=== PATIENT | female | born 1975 | race Caucasian/White ===

== ENCOUNTER 2019-05-24 16:46 | Outpatient (CLI) | payer MEDICAID, SELFPAY ==
--- NOTE | 2019-05-24 17:06 | XR_ITS ---
WS: [id number] XR lumbar spine 2-3V* [id number] REASON FOR EXAM: INJURY OF LOW BACK FINDINGS: The lateral projection the disc spaces are normal. The vertebral bodies are normal no compr ession deformity seen. In the AP projection the lamina, pedicle, spinous processes and transverse processes all appear to be within normal limits. XR/XR lumbar spine 2-3V* [id number] IMPRESSION: Normal lumbar spine series.
== END 2019-05-24 16:47 | disposition home or self-care (01) ==
LOC: RAD 16:51
PROVIDERS: Family Provider Family Medicine; PCP Family Medicine; Visit Provider Family Medicine
DX: S39.92XA Unspecified injury of lower back, initial encounter (principal); X58.XXXA Exposure to other specified factors, initial encounter
CPT/HCPCS: 72100

== ENCOUNTER 2019-05-31 10:04 | Emergency (ER) | payer MEDICAID, SELFPAY ==
[2019-05-31 10:13] VITALS: BP 117/76; PULSE 106; RESP 16; TEMP 36.9; O2SAT 98; BMI 21.7
--- NOTE | 2019-05-31 10:33 | CT_ITS ---
WS: [id number] CT scan of the abdomen and pelvis with IV contrast. Additional two-dimensional coronal and sagittal r econstruction was performed. 05/31/2019 Clinical Data: abd pain, fullness Comparison: CT abdomen and pelvis, 02/09/2019. DLP: 532.[address] scans at [facility] use at least one of these dose optimization techniques: automat ed exposure control; mA and/or kV adjustment per patient size (includes targeted exams where dose is matched to clinical indication); or iterative reconstruction. Findings: The lower lungs show no nodules, masses or effusions. The liver, gallbladder, spleen, adrenal glands and pancreas are normal. There is an incidental splenu le posterior to the spleen. The kidneys show equal bilateral contrast excretion with masses, hydronephrosis or renal calculi. The re is a small left renal cortical cyst unchanged.. The abdominal aorta is normal in size. No appendicitis or diverticulitis is seen. The stomach, small bowel and colon show only a large amoun t of fecal material in the colon. No abscess, adenopathy, ascites, mass, obstruction or free air is s een. No bowel dilatation is present. The bladder is unremarkable. The uterus is absent. No inguinal h ernia is seen. The bones of the lower thorax, lumbar spine, pelvis, and hips are normal. CT/CT abdomen pelvis w con* [id number] Impression: Negative for acute intra-abdominal or pelvic abnormalities.
--- NOTE | 2019-05-31 10:34 | W.ED.ABDPA2 ---
HPI - Abdominal Pain General: Chief Complaint: Abdominal Pain Stated Complaint: abd pain Time Seen by Provider: 05/31/19 10:33 Source: patient Mode of arrival: ambulatory Limitations: no limitations History of Present Illness: HPI narrative: Patient was referred to the ER today for complaints of left upper quadrant abdominal pain and diarrhea. Patient reports weight loss over the last 2 months. Patient reports occasional discomfort in the abdomen but it was more significant this morning. Patient has a history of chronic back pain which she takes medications for. 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 Patient denies any recent IV drug use. Review of Systems General: Reports: 10 or more systems reviewed and unremarkable except in HPI and below GI: Reports: abdominal pain PFSH ED PFSH: Social History Smoking and tobacco status: current every day smoker Physical Exam Const: COMMON NORMALS: no apparent distress and oriented x3 GENERAL APPEARANCE: cooperative HENMT: COMMON NORMALS: normocephalic, external ears normal, EAC's normal, TM's normal bilaterally and external nose normal HEAD & SCALP: normal to inspection and normocephalic FACE & SINUS: normal facial exam NOSE: external nose normal GENERAL EAR: hearing not grossly impaired EXTERNAL EAR: Yes external ears normal EXTERNAL AUDITORY CANAL: EAC's normal TYMPANIC MEMBRANE: TM's normal bilaterally MOUTH: oral and palatal mucosa normal THROAT: posterior oropharynx normal Eye: COMMON NORMALS: PERRL and EOMs intact bilaterally PUPIL: Yes PERRL Neck/C-Spine: COMMON NORMALS: full ROM and no lymphadenopathy Lymph: LYMPHATIC: no lymphedema noted Chest: COMMONS NORMALS: inspection of chest normal and palpation of chest normal Resp: COMMON NORMALS: normal respiratory effort and clear to auscultation bilaterally AUSCULTATION: clear to auscultation bilaterally Cardio: COMMON NORMALS: regular rate and regular rhythm RATE: regular rate RHYTHM: regular rhythm GI: COMMON NORMALS: normal to inspection, nondistended, normoactive bowel sounds PALPATION: Yes tender Details: LUQ : COMMON NORMALS: Yes no CVA tenderness BLADDER/KIDNEY EXAM: Yes no CVA tenderness Back/Pelvis: COMMON NORMALS: no CVA tenderness and thoracic and lumbar spine normal to inspection Extremity: COMMON NORMALS: normal to inspection GENERAL: No edema Neuro: COMMON NORMALS: oriented x3, moves all extremities and no focal motor deficits Psych: COMMON NORMALS: mental status grossly normal and cooperative Skin: COMMON NORMALS: no rashes or lesions noted GENERAL SKIN EXAM: no rashes or lesions noted Course Vital Signs: Vital signs: Vital Signs Temperature 98.5 F 05/31/19 10:13 Pulse Rate 106 H 05/31/19 10:13 Respiratory Rate 16 05/31/19 10:13 Blood Pressure 117/76 05/31/19 10:13 Pulse Oximetry 98 05/31/19 10:13 MDM - Abdominal Pain MDM Narrative: Medical decision making narrative: Patient comes in today with complaints of epigastric abdominal pain. Patient reports some diarrhea this morning and some left upper quadrant pain. Exam abdomen soft with minimal tenderness in left upper quadrant. Bowel sounds are present. No CVA tenderness. Vital signs are normal. Skin is warm and dry and color is pink. Differential diagnosis includes peptic ulcer disease, gastritis, gastroenteritis, cholecystitis, pancreatitis, urinary tract infection, renal calculi, carcinoma. Laboratory values noted sodium 135 and a creatinine 1.0. Liver enzymes are mildly elevated but not significant. Lipase was normal. Urinalysis was clear. CT scan of the abdomen showed no etiology or suggestion of acute illness. Reviewed exam with patient with recommendations for treatment and follow-up with primary care. Patient reported understanding. Patient was given Protonix 40 mg IV and 1 L of IV fluids with some improvement in discomfort. We will continue patient on the Protonix for treatment of gastritis. Lab Data: Labs: Lab Results 05/31/19 05/31/19 Range/Units 10:40 10:40 WBC 5.0 (4.0-10.0) 10^3/ uL RBC 4.35 (4.1-5.3) 10^6/u L Hgb 13.1 (11.5-15.3) g/dL Hct 40.9 (37.0-47.0) % MCV 94.0 (81-99) fL MCH 30.1 (28.0-34.0) pg MCHC 32.0 (30.0-36.0) g/dL RDW 13.7 (12.1-15.1) % Plt Count 242 (130-400) 10^3/c mm MPV 10.4 (7.4-10.4) fL Neut % (Auto) 71.1 % Lymph % (Auto) 21.1 % [facility] % (Auto) 5.0 % Eos % (Auto) 2.2 % Baso % (Auto) 0.6 % Neut # (Auto) 3.6 (1.8-7.7) 10^3/u L Lymph # (Auto) 1.1 (0.8-4.8) 10^3/u L [facility] # (Auto) 0.3 (0.2-0.9) 10^3/u L Eos # (Auto) 0.1 (0.0-0.8) 10^3/u L Baso # (Auto) 0.0 (0.0-0.1) 10^3/u L Nucleated RBC % (a uto) 0 % Nucleated RBCs # 0.0 /100WBC Sodium 135 L (136-145) mmol/L Potassium 3.8 (3.5-5.1) mmol/L Chloride 99 (98-107) mmol/L Carbon Dioxide 24 (22-29) mmol/L Anion Gap 15.8 (5-19) BUN 17 (6-20) mg/dL Creatinine 1.0 H (0.5-0.9) mg/dL GFR Calculation 60.0 L (90-130) mL/min Glucose 124 H (65-115) mg/dL Calcium 9.8 (8.5-10.5) mg/dL Total Bilirubin 0.5 (0.15-1.2) mg/dL AST 38 H (0-32) U/L ALT 59 H (0-33) U/L Alkaline Phosphata se 78 (35-105) IU/L Total Protein 7.6 (6.6-8.7) g/dL Albumin 3.9 (3.5-5.2) g/dL Globulin 3.7 (1.3-4.6) g/dL Lipase 17 (13-60) U/L Discharge Plan Discharge Patient Disposition: Home, Self-Care Clinical Impression: Gastritis Qualifiers: Gastritis type: unspecified gastritis Chronicity: unspecified Gastritis bleeding: without bleeding Qualified Code(s): K29.70 - Gastritis, unspecified, without bleeding Condition: Stable Prescriptions: New pantoprazole 40 mg tablet,delayed release (DR/EC) 40 mg PO DAILY Qty: 14 RF: 0 Discharge Orders: Discharge Order (Routine); Ordered 02/25/20 Ordered By: Francisco Parra Referrals: Debbie Odonnell DO [Primary Care Provider] - Discharge Diet: Usual diet Discharge Activity: Increase activity as tolerated Patient Instructions: Gastritis (ED) Activity Restrictions/Additional Instructions: Home and rest Activity as tolerated Drink plenty of fluids Light diet, avoid acidic, spicy foods Stop smoking Follow-up with primary care in one week Coding Level of Care Code 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
[2019-05-31 10:49] LABS: Basophils % 0.6 %; Eosinophils # 0.1 10^3/uL (0.0-0.8); Eosinophils % 2.2 %; Hematocrit 40.9 % (37.0-47.0); Hemoglobin 13.1 g/dL (11.5-15.3); Lymphocytes # 1.1 10^3/uL (0.8-4.8); Lymphocytes % 21.1 %; Mean Corpuscular Hemoglobin 30.1 pg (28.0-34.0); Mean Platelet Volume 10.4 fL (7.4-10.4); Monocytes # 0.3 10^3/uL (0.2-0.9); Neutrophils # 3.6 10^3/uL (1.8-7.7); Neutrophils % 71.1 %; Nucleated Red Blood Cells % 0 %; Platelet Count 242 10^3/cmm (130-400); Red Blood Count 4.35 10^6/uL (4.1-5.3); Red Cell Distribution Width 13.7 % (12.1-15.1)
[2019-05-31] MEDS: iohexol 300 mg/mL 100 mL Btl IV (10:55)
[2019-05-31 11:04] LABS: Alanine Aminotransferase 59 U/L (0-33); Albumin Level 3.9 g/dL (3.5-5.2); Alkaline Phosphatase 78 IU/L (35-105); Anion Gap 15.8 (5-19); Aspartate Amino Transferase 38 U/L (0-32); Blood Urea Nitrogen 17 mg/dL (6-20); Calcium 9.8 mg/dL (8.5-10.5); Carbon Dioxide 24 mmol/L (22-29); Chloride 99 mmol/L (98-107); Globulin 3.7 g/dL (1.3-4.6); Glucose 124 mg/dL (65-115); Lipase 17 U/L (13-60); Potassium 3.8 mmol/L (3.5-5.1); Sodium 135 mmol/L (136-145); Total Bilirubin 0.5 mg/dL (0.15-1.2); Total Protein 7.6 g/dL (6.6-8.7)
[2019-05-31] MEDS: sodium chloride 0.9% 1,000 ML 999 ML IV (11:08)
[2019-05-31] MEDS: pantoprazole 40 mg SDV IVP (11:08)
[2019-05-31 12:27] VITALS: BP 127/85; PULSE 89; RESP 18; O2SAT 95
== END 2019-05-31 12:28 | disposition home or self-care (01) ==
LOC: ER 12:18
PROVIDERS: Emergency Provider Nurse Practitioner Family; Family Provider Family Medicine; PCP Family Medicine
DX: K29.70 Gastritis, unspecified, without bleeding (principal); F17.210 Nicotine dependence, cigarettes, uncomplicated; G89.29 Other chronic pain; M54.9 Dorsalgia, unspecified
CPT/HCPCS: 36415; 74177; 80053; 83690; 85025; 96360; 96361; 96374; 96375; 99282; 99283; C9113; J7030; Q9967

== ENCOUNTER 2019-06-07 18:32 | Emergency (ER) | payer MEDICAID, SELFPAY ==
[2019-06-07 18:45] VITALS: BP 125/83; PULSE 89; RESP 16; TEMP 37.1; O2SAT 98; BMI 22.7
--- NOTE | 2019-06-07 18:49 | ECG_ITS ---
Measurements Intervals [place] Rate: 97 P: 76 PA: 136 QRS: 32 QRSD: 91 T: 44 QT: 343 QTc: 438 SINUS RHYTHM POSSIBLE LEFT ATRIAL ENLARGEMENT [-0.1mV P WAVE IN V1/V2] Compared to ECG 10/18/2018 18:38:50 Sinus tachycardia no longer present Electronically Signed On 06-08-2019 4:35:07 DENTAL TECHNICIAN INSTRUCTOR by Mira Law M.D. [email or web address]
--- NOTE | 2019-06-07 20:44 | W.ED.ANXIETY ---
HPI - Anxiety General: Chief Complaint: Anxiety Stated Complaint: anxiety Time Seen by Provider: 06/07/19 20:33 History of Present Illness: HPI narrative: Patient comes in today with complaints of anxiety. Patient has been without her medications due to recently returned to the area. Patient usually takes Klonopin and gabapentin for her anxiety and low back pain. Patient appears well. Patient appears anxious. EKG done in the waiting room noted no abnormalities. MD complaint: anxiety Review of Systems General: Reports: 10 or more systems reviewed and unremarkable except in HPI and below Psych: Reports: anxiety PFSH ED PFSH: Social History Smoking and tobacco status: current every day smoker Physical Exam Const: COMMON NORMALS: no apparent distress and oriented x3 GENERAL APPEARANCE: cooperative and well kempt HENMT: COMMON NORMALS: normocephalic, external ears normal, EAC's normal, TM's normal bilaterally and external nose normal HEAD & SCALP: normal to inspection and normocephalic FACE & SINUS: normal facial exam NOSE: external nose normal GENERAL EAR: hearing not grossly impaired EXTERNAL EAR: Yes external ears normal EXTERNAL AUDITORY CANAL: EAC's normal TYMPANIC MEMBRANE: TM's normal bilaterally MOUTH: oral and palatal mucosa normal THROAT: posterior oropharynx normal Eye: COMMON NORMALS: PERRL and EOMs intact bilaterally PUPIL: Yes PERRL Neck/C-Spine: COMMON NORMALS: full ROM and no lymphadenopathy Lymph: LYMPHATIC: no lymphedema noted Chest: COMMONS NORMALS: inspection of chest normal and palpation of chest normal Resp: COMMON NORMALS: normal respiratory effort and clear to auscultation bilaterally AUSCULTATION: clear to auscultation bilaterally Cardio: COMMON NORMALS: regular rate and regular rhythm RATE: regular rate RHYTHM: regular rhythm GI: COMMON NORMALS: normal to inspection, nondistended, normoactive bowel sounds and non-tender : COMMON NORMALS: Yes no CVA tenderness BLADDER/KIDNEY EXAM: Yes no CVA tenderness Back/Pelvis: COMMON NORMALS: no CVA tenderness and thoracic and lumbar spine normal to inspection Extremity: COMMON NORMALS: normal to inspection GENERAL: No edema Neuro: COMMON NORMALS: oriented x3, moves all extremities and no focal motor deficits Psych: COMMON NORMALS: mental status grossly normal and cooperative APPEARANCE: Yes well kempt MOOD & AFFECT: Yes anxious Skin: COMMON NORMALS: no rashes or lesions noted GENERAL SKIN EXAM: no rashes or lesions noted Course Vital Signs: Vital signs: Vital Signs Temperature 98.8 F 06/07/19 18:45 Pulse Rate 89 06/07/19 18:45 Respiratory Rate 16 06/07/19 18:45 Blood Pressure 125/83 06/07/19 18:45 Pulse Oximetry 98 06/07/19 18:45 MDM - Anxiety MDM Narrative: Medical decision making narrative: Patient comes in today with complaints of anxiety. Patient has been without her Klonopin and gabapentin for over 2 weeks now due to a recent move to the area. Patient appears well. Exam notes heart rates regular. Vital signs are normal. Skin is warm and dry. Differential diagnosis includes depression, anxiety, malingering, drug-seeking behavior. Reviewed exam with patient recommended treatment with follow-up with primary care. Patient will be given lorazepam 0.5 mg to use twice a day as needed for breakthrough anxiety. Discussed the importance of keeping appointment with primary. Patient reports understanding agreed to plan. Discharge Plan Discharge Patient Disposition: Home, Self-Care Clinical Impression: Acute anxiety Condition: Stable Prescriptions: New lorazepam 0.5 mg tablet 0.5 mg PO BID PRN (Reason: anxiety) Qty: 14 RF: 0 No Action pantoprazole 40 mg tablet,delayed release (DR/EC) 40 mg PO DAILY Qty: 14 RF: 0 Discharge Orders: Discharge Order (Routine); Ordered 06/07/19 Ordered By: Francisco Parra Referrals: Debbie Odonnell DO [Primary Care Provider] - Discharge Diet: Usual diet Discharge Activity: Increase activity as tolerated Patient Instructions: Anxiety (ED) Activity Restrictions/Additional Instructions: Home and rest Activity as tolerated Healthy diet and exercise Follow-up with primary care at scheduled appointment 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
[2019-06-07] MEDS: LORazepam 0.5 mg Tablet PO (20:59)
[2019-06-07 21:01] VITALS: O2SAT 96
[2019-06-07 21:02] VITALS: BP 124/95; PULSE 98; RESP 17; O2SAT 97
== END 2019-06-07 21:02 | disposition home or self-care (01) ==
PROVIDERS: Emergency Provider Nurse Practitioner Family; Family Provider Family Medicine; PCP Family Medicine
DX: F41.9 Anxiety disorder, unspecified (principal); F17.200 Nicotine dependence, unspecified, uncomplicated
CPT/HCPCS: 93005; 99281; 99283

== ENCOUNTER 2019-06-10 22:01 | Emergency (ER) | payer MEDICAID, SELFPAY ==
[2019-06-10 22:02] VITALS: BP 140/100; PULSE 98; RESP 16; TEMP 36.7; O2SAT 98; BMI 22.8
--- NOTE | 2019-06-10 22:04 | ED_ITS ---
Entered by Jennifer Davies, acting as scribe for Geovanny Cordero DO HPI - Back Pain/Injury General: Chief Complaint: Back Pain/Injury Stated Complaint: back pain Time Seen by Provider: 06/10/19 22:04 Source: patient, EMS and RN notes reviewed Mode of arrival: EMS Limitations: no limitations PFSH ED PFSH: Social History Smoking and tobacco status: current every day smoker Discharge Plan Discharge Prescriptions: No Action lorazepam 0.5 mg tablet 0.5 mg PO BID PRN (Reason: anxiety) Qty: 14 RF: 0 Tylenol 325 mg Tablet 325 mg PO QID PRN (Reason: Pain) RF: 0 aspirin 325 mg Tablet 325 mg PO PRN PRN (Reason: Pain) RF: 0 clonazepam 0.5 mg tablet 1 mg PO TID PRN (Reason: Anxiety) RF: 0 tramadol 50 mg Tablet 50 mg PO Q6H PRN (Reason: Pain) RF: 0 gabapentin 800 mg Tablet 800 mg PO TID RF: 0 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
[2019-06-10 22:06] VITALS: BP 140/100; PULSE 116; RESP 16; O2SAT 100
--- NOTE | 2019-06-10 22:14 | ED_ITS ---
HPI - Back Pain/Injury General: Chief Complaint: Back Pain/Injury Stated Complaint: back pain Time Seen by Provider: 06/10/19 22:04 History of Present Illness: HPI Narrative: Archie is a 43-year-old female comes in complaining of low back pain that radiates down her left leg. It is a tingling type discomfort that goes down her leg. It is made worse by walking. She denies any trauma, fever, loss of bowel or bladder control, numbness in her groin, leg weakness or any other complaint. She states she has had pain like this before and it takes strong medications to help her pain go away. Associated symptoms: Deny abdominal pain, chills, difficulty walking, dysuria, fatigue, fever(s), hematuria, nausea, syncope, urinary urgency or vomiting Review of Systems General: Reports: other (negative unless marked) Const: Denies: fever, chills, body aches, fatigue, malaise or diaphoresis Eyes: Denies: change in vision or blurry vision ENMT: Denies: throat pain, painful swallowing, hoarseness, ear pain, ear discharge, Change in hearing or nasal discharge Card: Denies: chest pain, palpitations, irregular heart rhythm, syncope, pre- syncope, shortness of breath on exertion or shortness of breath when lying down Resp: Denies: shortness of breath, productive cough, non-productive cough, wheezing, coughing up blood or chest congestion GI: Denies: abdominal pain, nausea, vomiting, vomiting blood, coffee grounds in vomit, diarrhea, constipation, cramping, blood in stool or black tarry stool : Denies: flank pain, painful urination, urinary frequency, urinary urgency, decreased urine ouput, urinary incontinence or blood in urine Musc: Reports: back pain; Denies: neck pain, extremity pain, extremity swelling, joint pain, joint swelling, joint warmth or joint stiffness Skin/Breast: Denies: rash, skin tenderness or yellow skin Neuro: Denies: headache, numbness in extremities, weakness in extremities, changes in sensation, lack of coordination, difficulty walking, dizziness, vertigo or confusion Endo: Denies: excessive thirst, tired all the time, cold intolerance, excessive sweating, flushing or hot flashes Arben/Lymph: Denies: easy bruising, easy bleeding, petechiae or enlarged lymph nodes All/Imm: Denies: hives, throat swelling, tongue swelling, facial swelling or acute wheezing PFSH ED PFSH: Social History Smoking and tobacco status: current every day smoker Physical Exam Const: COMMON NORMALS: no apparent distress, oriented x3, no limitations, healthy appearing and well nourished EXAM LIMITATIONS: no altered mental status GENERAL APPEARANCE: cooperative, well kempt and well developed ORIENTATION/CONSCIOUSNESS: Yes awake HENMT: COMMON NORMALS: normocephalic, head/scalp atraumatic, hearing grossly normal bilaterally, external ears normal, EAC's normal, external nose normal and moist oral mucous membranes HEAD & SCALP: normal to inspection, normocephalic and atraumatic FACE & SINUS: normal facial exam and face symmetric NOSE: external nose normal and nares normal EXTERNAL EAR: Yes external ears normal EXTERNAL AUDITORY CANAL: EAC's normal MOUTH: oral and palatal mucosa normal and tongue normal Eye: COMMON NORMALS: PERRL, EOMs intact bilaterally, conjunctivae normal and no scleral icterus GENERAL EYE: normal appearance of both eyes and normal lig ht reflex CONJUNCTIVA: Yes conjunctivae normal SCLERA: sclerae normal CORNEA: Yes corneas normal PUPIL: Yes PERRL DIRECT OPHTHALMOSCOPY: Yes normal light reflex Neck/C-Spine: COMMON NORMALS: full ROM, no lymphadenopathy, supple, no meningeal signs and no JVD GENERAL: Yes normal visual inspection and Yes trachea midline CERVICAL SPINE: Yes cervical ROM normal Chest: COMMONS NORMALS: inspection of chest normal and palpation of chest normal Resp: COMMON NORMALS: normal respiratory effort, no retractions, no use of accessory muscles and clear to auscultation bilaterally EFFORT & INSPECTION: Yes able to speak in complete sentences AUSCULTATION: clear to auscultation bilaterally Cardio: COMMON NORMALS: no JVD, regular rate, regular rhythm, S1 normal heart sound, S2 normal heart sound, no gallops, no clicks, no murmurs and no rub JUGULAR VENOUS DISTENTION: no JVD RATE: regular rate RHYTHM: regular rhythm HEART SOUNDS: S1 normal and S2 normal GI: COMMON NORMALS: soft to palpation, non-tender, no hepatosplenomegaly and no masses INSPECTION: Yes normal to inspection PALPATION: Yes soft and Yes no hepatosplenomegaly : COMMON NORMALS: Yes no CVA tenderness BLADDER/KIDNEY EXAM: Yes no CVA tenderness Back/Pelvis: COMMON NORMALS: no CVA tenderness, thoracic and lumbar spine normal to inspection, no thoracic nor lumbar tenderness and thoraco-lumbar ROM normal Extremity: COMMON NORMALS: normal to inspection, full ROM, normal capillary refill, no joint enlargement, no clubbing, cyanosis or edema and no calf tenderness OTHER: Negative straight raise lasing and contralateral straight leg raising test. Neuro: COMMON NORMALS: oriented x3, CN's II-XII intact bilaterally, moves all extremities, no focal motor deficits and no sensory deficits noted MENINGEAL SIGNS: Yes no meningeal signs GAIT: Yes normal gait MOTOR EXAM: strength 5/5 throughout and other DEEP TENDON REFLEXES: Rt Patellar (L4): 2+, Lt Patellar (L4): 2+, Rt Ankle (S1): 2+ and Lt Ankle (S1): 2+ Psych: COMMON NORMALS: mental status grossly normal, thought process normal, cooperative, affect normal, speech normal and activity/motor behavior normal APPEARANCE: Yes well kempt SPEECH: Yes normal speech THOUGHT PROCESS: normal thought process Skin: COMMON NORMALS: no rashes or lesions noted, skin turgor normal, no jaundice, no petechiae and no mottling GENERAL SKIN EXAM: no rashes or lesions noted and turgor normal Course Vital Signs: Vital signs: Vital Signs Temperature 98.0 F 06/10/19 22:02 Pulse Rate 116 H 06/10/19 22:06 Respiratory Rate 16 06/10/19 22:06 Blood Pressure 140/100 06/10/19 22:06 Pulse Oximetry 100 06/10/19 22:06 MDM - Back Pain/Injury MDM Narrative: Medical decision making narrative: Archie has signs and symptoms and exam consistent with sciatica. There is no evidence of cauda equina syndrome or CRAFTI as a cause for her symptoms. I will treat her symptomatically. I do not believe x-rays or imaging is necessary as the patient's had no trauma and this is a flareup of her normal pain. She has no abdominal pain, dysuria or flank pain to suggest a pyelonephritis. The patient agrees to return should her symptoms change or worsen but she feels confident this is sciatic as she has had this before. Discharge Plan Discharge Patient Disposition: Home, Self-Care Clinical Impression: Sciatica Qualifiers: Laterality: left Qualified Code(s): M54.32 - Sciatica, left side Condition: Stable Prescriptions: New cyclobenzaprine 10 mg tablet 10 mg PO TID PRN (Reason: muscle spasm) Qty: 30 RF: 0 ibuprofen 800 mg tablet 800 mg PO TID PRN (Reason: pain) Qty: 30 RF: 0 No Action lorazepam 0.5 mg tablet 0.5 mg PO BID PRN (Reason: anxiety) Qty: 14 RF: 0 Tylenol 325 mg Tablet 325 mg PO QID PRN (Reason: Pain) RF: 0 aspirin 325 mg Tablet 325 mg PO PRN PRN (Reason: Pain) RF: 0 clonazepam 0.5 mg tablet 1 mg PO TID PRN (Reason: Anxiety) RF: 0 tramadol 50 mg Tablet 50 mg PO Q6H PRN (Reason: Pain) RF: 0 gabapentin 800 mg Tablet 800 mg PO TID RF: 0 Discharge Orders: Discharge Order (Routine); Ordered 06/10/19 Ordered By: Jennifer Marmolejo Referrals: Debbie Odonnell DO [Primary Care Provider] - 1-3 days Discharge Activity: Increase activity as tolerated Patient Instructions: Sciatica (ED) Activity Restrictions/Additional Instructions: Please return to the ER immediately for any of the signs or symptoms listed on your discharge instruction sheets, worsening/changing of your symptoms, you are not getting better as quickly as expected, or for ANY other cause or concerns. Return to the ER for any leg numbness, leg weakness, numbness or tingling in your groin, loss of bowel or bladder control, fever, abdominal pain, burning or pain when you urinate or for any other cause for concern. Coding Level of Care Code ED Neurophysiologist for Go Fwd Exam Comprehensive
--- NOTE | 2019-06-10 22:14 | PC.NURSE ---
Received patient to Er with complain of left lower back pain running down her left leg making it tingle.
[2019-06-10] MEDS: cyclobenzaprine 10 mg Tablet PO (22:22)
[2019-06-10] MEDS: acetaminophen 500 mg Tablet 1000 MG PO (22:22)
[2019-06-10] MEDS: ketorolac 60 mg/2 mL INJ IM (22:23)
[2019-06-10 22:53] VITALS: BP 129/107; PULSE 104; RESP 18; TEMP 36.6; O2SAT 98
== END 2019-06-10 22:53 | disposition home or self-care (01) ==
LOC: ER 22:38
PROVIDERS: Emergency Provider Emergency Medicine; Family Provider Family Medicine; PCP Family Medicine
DX: M54.42 Lumbago with sciatica, left side (principal); F17.200 Nicotine dependence, unspecified, uncomplicated
CPT/HCPCS: 12345; 96372; 99281; 99283; J1885

== ENCOUNTER 2019-09-17 01:19 | Emergency (ER) | payer MEDICAID, SELFPAY ==
[2019-09-17 01:20] VITALS: BP 165/109; PULSE 123; RESP 18; TEMP 36.8; O2SAT 96; BMI 20.3
[2019-09-17 01:55] LABS: Basophils % 0.5 %; Eosinophils # 0.1 10^3/uL (0.0-0.8); Eosinophils % 0.7 %; Hematocrit 42.9 % (37.0-47.0); Hemoglobin 14.1 g/dL (11.5-15.3); Lymphocytes # 1.3 10^3/uL (0.8-4.8); Lymphocytes % 17.1 %; Mean Corpuscular HGB Conc 32.9 g/dL (30.0-36.0); Mean Corpuscular Hemoglobin 32.5 pg (28.0-34.0); Mean Corpuscular Volume 98.8 fL (81-99); Mean Platelet Volume 9.6 fL (7.4-10.4); Monocytes # 0.6 10^3/uL (0.2-0.9); Monocytes % 7.5 %; Neutrophils # 5.6 10^3/uL (1.8-7.7); Neutrophils % 74.1 %; Nucleated Red Blood Cells % 0 %; Platelet Count 212 10^3/cmm (130-400); Red Blood Count 4.34 10^6/uL (4.1-5.3); Red Cell Distribution Width 13.6 % (12.1-15.1); White Blood Count 7.5 10^3/uL (4.0-10.0)
[2019-09-17 02:11] LABS: Alanine Aminotransferase 126 U/L (0-33); Albumin Level 4.3 g/dL (3.5-5.2); Alcohol Level 161 mg/dL (0-10); Alkaline Phosphatase 88 IU/L (35-105); Anion Gap 18.8 (5-19); Aspartate Amino Transferase 78 U/L (0-32); Blood Urea Nitrogen 19 mg/dL (6-20); Calcium 9.3 mg/dL (8.5-10.5); Carbon Dioxide 20 mmol/L (22-29); Chloride 109 mmol/L (98-107); Globulin 3.1 g/dL (1.3-4.6); Glomerular Filtration Rate 53.5 mL/min (90-130); Glucose 101 mg/dL (65-115); Osmolality Calculated 295 mOsm/kg (285-295); Potassium 3.8 mmol/L (3.5-5.1); Sodium 144 mmol/L (136-145); Total Bilirubin 0.3 mg/dL (0.15-1.2); Total Protein 7.4 g/dL (6.6-8.7)
[2019-09-17 02:20] LABS: Acetaminophen < 5.0 ug/mL (10-30); Salicylate < 0.3 mg/dL (3-10)
[2019-09-17 02:36] LABS: Add Urine Microscopic? NO
[2019-09-17 02:37] LABS: Bilirubin Urine Neg (NEGATIVE); Blood Urine Neg (Negative); Glucose Urine UA Norm (Normal); Ketones Urine Negative (Negative); Leukocyte Esterase Urine Negative (Negative); Nitrate Urine Negative (Negative); Protein Urine Neg (Negative); Urine Appearance Clear (CLEAR); Urine Color Yellow (Yellow); Urobilinogen Urine Norm (Negative); pH Urine 5 (5-7)
[2019-09-17 02:47] LABS: Amphetamines Screen Urine Negative (Negative); Barbiturates Screen Urine Negative (Negative); Benzodiazepines Screen Urine Negative (Negative); Cocaine Screen Urine Negative (Negative); Opiate Screen Urine Negative (Negative); PCP Screen Urine Negative (Negative); THC Screen Urine Negative (Negative)
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
== END 2019-09-17 03:03 | disposition left against medical advice (07) ==
LOC: ER 01:55
PROVIDERS: Emergency Provider Emergency Medicine; PCP Family Medicine
DX: R45.851 Suicidal ideations (principal); Z53.21 Procedure and treatment not carried out due to patient leaving prior to being seen by health care provider; F17.210 Nicotine dependence, cigarettes, uncomplicated
CPT/HCPCS: 12345; 80053; 80306; 80307; 81003; 85025; 99284

== ENCOUNTER 2019-09-28 06:43 | Day surgery (SDC) | payer MEDICAID, SELFPAY ==
[2019-09-26 13:47] VITALS: BMI 21.1
[2019-09-28 07:10] VITALS: BP 100/70; PULSE 83; RESP 18; O2SAT 95
--- NOTE | 2019-09-28 07:27 | P.ANESASSM_ITS ---
Pre-Anesthetic Assessment Pre-Anesthetic Assessment: Height/Weight: Height 1.7 m Weight 61.235 kg Pulse Resp BP Pulse Ox 83 18 100/70 95 09/28/19 07:10 09/28/19 07:10 09/28/19 07:10 09/28/19 07:10 Preop Diagnosis: Nonintentional weight loss Proposed Procedure: Operation Date: 09/28/19 08:15 Proposed Procedures p EGD/COLON 00901 43995 R10.9 K59.09(Not Applicable) - Harish Franco MD s Colonoscopy(Not Applicable) - Harish Franco MD Familial anesthetic complications: nONE Was Beta Alen taken within 24 hour s: N/A Last intake: Intake NPO > 8 hrs Last Liquid Date 09/27/19 Last Liquid Time 20:00 Social: Social History: Tobacco and No alcohol Exam: Pre-Anes Outpt Exam: alert, oriented x 3, clear to auscultation bilaterally and regular rate & rhythm Airway: Cervical ROM: WNL MP: 3 Dentition: Full Pulmonary: Pulmonary: Asthma and COPD CV/HEM: CV/HEM: None reported : : None reported Hepatic: Hepatic: None reported GI: GI: None reported Metabolic: Metabolic: None reported Musc/skel: Musc/skel: Lower Back Pain Neuropsych: Neuropsych: None reported Anesthetic Plan: ASA status: 2 Anesthesia: MAC Risk of > 500 ml blood loss (7ml/kg in children): No PFSH Anesthesia PFSH: Medical History Abdominal pain Chronic constipation Unintentional weight loss Vomiting blood Surgical History History of hysterectomy Family History Denies family history of Anesthesia complication Bleeding disorder Social History Smoking and tobacco status: current every day smoker Second hand smoke exposure: No Alcohol intake: never Adopted: No Caregiver/support person: Yes Lives independently: Yes Household members: spouse Data Anesthesia Cardiac Studies: No Data to Display
--- NOTE | 2019-09-28 08:59 | W.PM.OPSUD ---
Surgery/Procedure H&P Update DATE OF PROCEDURE: September 28, 2019 DATE H&P PERFORMED: 09/15/19 H&P UPDATE INFORMATION: I have reviewed H&P completed within last 30 days, I have examined patient prior to procedure and No changes to prior documentation PREOP DIAGNOSIS: Nonintentional weight loss PRIMARY INDICATION FOR PROCEDURE: The same PLANNED PROCEDURE: Operation Date: 09/28/19 08:15 Proposed Procedures p EGD/COLON 67266 26015 R10.9 K59.09(Not Applicable) - Harish Franco MD s Colonoscopy(Not Applicable) - Harish Franco MD
[2019-09-28 09:21] VITALS: BP 90/60; PULSE 73; RESP 16; TEMP 36.2; O2SAT 99
[2019-09-28 09:35] VITALS: BP 107/85; PULSE 96; RESP 18; O2SAT 98
--- NOTE | 2019-09-28 09:48 | ANE.PACU2 ---
Inpatient post-anesthesia follow up: Airway intact: Yes Vital signs: Temperature 97.2 F Pulse Rate 96 Respiratory Rate 18 Blood Pressure 107/85 Pulse Oximetry 98 Oxygen Delivery Me thod Room Air Oxygen Flow Rate Fraction of Inspir ed Oxygen Hydration adequate: Yes Nausea and vomiting: No Mental status: Baseline
[2019-09-29 13:34] LABS: H. Pylori / CLO Test Negative
== END 2019-09-28 09:44 | disposition home or self-care (01) ==
PROVIDERS: PCP Family Medicine; Visit Provider Surgery
PROC: 0DJ08ZZ Inspection of Upper Intestinal Tract, Via Natural or Artificial Opening Endoscopic (ICD-10-PCS; CPT 43235; principal; 2019-09-28 08:15)
PROC: 0DJD8ZZ Inspection of Lower Intestinal Tract, Via Natural or Artificial Opening Endoscopic (ICD-10-PCS; CPT 45378; 2019-09-28 08:15)
DX: R63.4 Abnormal weight loss (principal); Z68.21 Body mass index [BMI] 21.0-21.9, adult; K59.00 Constipation, unspecified; K21.9 Gastro-esophageal reflux disease without esophagitis; K29.70 Gastritis, unspecified, without bleeding; J44.9 Chronic obstructive pulmonary disease, unspecified; F17.210 Nicotine dependence, cigarettes, uncomplicated; Z79.82 Long term (current) use of aspirin
CPT/HCPCS: 12345; 43239; 45378; 87077; J2704

== ENCOUNTER → 2020-01-12 13:44 | Outpatient (BNVA) | payer MEDICAID, SELFPAY | PROVIDERS: Visit Provider Nurse Practitioner Psychiatric/Mental Health | DX: F41.0 Panic disorder [episodic paroxysmal anxiety] (principal); F19.11 Other psychoactive substance abuse, in remission | CPT/HCPCS: 99214 ==

== ENCOUNTER → 2020-02-09 07:43 | Outpatient (BNVA) | payer MEDICAID, SELFPAY | PROVIDERS: Visit Provider Nurse Practitioner Psychiatric/Mental Health | DX: F41.0 Panic disorder [episodic paroxysmal anxiety] (principal); F19.11 Other psychoactive substance abuse, in remission | CPT/HCPCS: 99212 ==

== ENCOUNTER → 2020-02-10 08:52 | Outpatient (BNVA) | payer MEDICAID, SELFPAY | PROVIDERS: Visit Provider Nurse Practitioner Psychiatric/Mental Health | DX: Z79.899 Other long term (current) drug therapy (principal) | CPT/HCPCS: 80053; 80061; 80306; 83036 ==

== ENCOUNTER 2020-04-07 04:47 | Emergency (ER) | payer MEDICAID, SELFPAY ==
[2020-04-07] VITALS (7 sets, daily range): BP systolic 94–144; BP diastolic 58–107; PULSE 75–117; RESP 16–22; TEMP 36.8; O2SAT 97–99; BMI 21.9
--- NOTE | 2020-04-07 05:28 | ECG_ITS ---
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 Measurements Intervals [place] Rate: 115 P: 73 NJ: 141 QRS: 39 QRSD: 93 T: 65 QT: 330 QTc: 457 Interpretive Statements SINUS TACHYCARDIA Compared to ECG 06/07/2019 18:52:21 Sinus rhythm no longer present Electronically Signed On 04-07-2020 17:51:51 ELECTRIC MOTOR TESTER by Matthias Georges M.D. [id number]
--- NOTE | 2020-04-07 05:28 | CTR_ITS ---
PROCEDURE INFORMATION: Exam: CT Head Without Contrast Exam date and time: 04/07/2020 6:19 AM Age: 44 years old Clinical indication: Altered mental status/memory loss; Patient HX: AMS. Drug overdose. TECHNIQUE: Imaging protocol: Computed tomography of the head without contrast. Radiation optimization: All CT scans at this facility use at least one of these dose optimization techniques: automated exposure control; mA and/or kV adjustment per patient size (includes targeted exams where dose is matched to clinical indication); or iterative reconstruction. COMPARISON: No relevant prior studies available. RADIATION DOSE METRICS: Total DLP (mGy-cm): 958.73 FINDINGS: Brain: Mild symmetric prominence of the cortical sulci relative to the stated patient age. No acute cortical infarct, mass effect, or intracranial hemorrhage. Cerebral ventricles: Normal configuration of the ventricles. Bones/joints: No acute calvarial pathology . Paranasal sinuses: No sinus fluid. Mastoid air cells: No mastoid effusion. Soft tissues: Unremarkable soft tissues. CT/CT head wo con* [id number] IMPRESSION: No acute intracranial pathology. Radiation Dose CTDIVOL = (mGy): DLP = 958.73 (mGy-cm)
[2020-04-07] MEDS: haloperidol inj 5 mg/mL INJ 1 mL 3 MG IVP (05:32)
[2020-04-07] MEDS: sodium chloride 0.9% 500 ML 999 ML IV (05:35)
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
[2020-04-07 05:40] LABS: Basophils % 0.4 %; Eosinophils # 0.1 10^3/uL (0.0-0.8); Hematocrit 42.2 % (37.0-47.0); Hemoglobin 13.7 g/dL (11.5-15.3); Lymphocytes # 2.1 10^3/uL (0.8-4.8); Lymphocytes % 29.1 %; Mean Corpuscular HGB Conc 32.5 g/dL (30.0-36.0); Mean Corpuscular Hemoglobin 32.3 pg (28.0-34.0); Mean Corpuscular Volume 99.5 fL (81-99); Mean Platelet Volume 9.9 fL (7.4-10.4); Monocytes # 0.7 10^3/uL (0.2-0.9); Monocytes % 8.9 %; Neutrophils # 4.42 10^3/uL (1.8-7.7); Neutrophils % 60.5 %; Nucleated Red Blood Cells % 0 %; Platelet Count 263 10^3/cmm (130-400); Red Blood Count 4.24 10^6/uL (4.1-5.3); Red Cell Distribution Width 12.6 % (12.1-15.1); White Blood Count 7.3 10^3/uL (4.0-10.0)
--- NOTE | 2020-04-07 06:19 | PC.NURSE ---
patient to CT
[2020-04-07 06:50] LABS: Alanine Aminotransferase 133 U/L (0-33); Albumin Level 4.2 g/dL (3.5-5.2); Alkaline Phosphatase 76 IU/L (35-105); Aspartate Amino Transferase 108 U/L (0-32); Blood Urea Nitrogen 18 mg/dL (6-20); Calcium 9.5 mg/dL (8.5-10.5); Carbon Dioxide 24 mmol/L (22-29); Chloride 102 mmol/L (98-107); Globulin 3.4 g/dL (1.3-4.6); Glomerular Filtration Rate 53.5 mL/min (90-130); Glucose 137 mg/dL (65-115); Osmolality Calculated 298 mOsm/kg (285-295); Sodium 142 mmol/L (136-145); Total Bilirubin 0.6 mg/dL (0.15-1.2); Total Protein 7.6 g/dL (6.6-8.7)
[2020-04-07 06:53] LABS: Acetaminophen < 5.0 ug/mL (10-30); Alcohol Level < 10 mg/dL (0-10); Salicylate < 0.3 mg/dL (3-10)
== END 2020-04-07 08:06 | disposition home or self-care (01) ==
PROVIDERS: Emergency Medicine; Emergency Provider Family Medicine
DX: T88.7XXA Unspecified adverse effect of drug or medicament, initial encounter (principal); T40.415A Adverse effect of fentanyl or fentanyl analogs, initial encounter; F17.210 Nicotine dependence, cigarettes, uncomplicated
CPT/HCPCS: 12345; 70450; 80053; 80307; 85025; 93005; 96374; 99283; J1630; J7040

== ENCOUNTER → 2020-06-14 08:08 | Outpatient (BNVA) | payer MEDICAID, SELFPAY | PROVIDERS: Visit Provider Nurse Practitioner Psychiatric/Mental Health | DX: F41.0 Panic disorder [episodic paroxysmal anxiety] (principal); F19.11 Other psychoactive substance abuse, in remission; Z03.89 Encounter for observation for other suspected diseases and conditions ruled out | CPT/HCPCS: 99213 ==

== ENCOUNTER → 2020-07-26 15:20 | Outpatient (BNVA) | payer MEDICAID, SELFPAY | PROVIDERS: Visit Provider Internal Medicine | DX: R76.8 Other specified abnormal immunological findings in serum (principal); B18.2 Chronic viral hepatitis C | CPT/HCPCS: 82105; 87522; 87902 ==

== ENCOUNTER → 2020-07-27 10:20 | Outpatient (BNVA) | payer MEDICAID, SELFPAY | PROVIDERS: Visit Provider Nurse Practitioner Psychiatric/Mental Health | DX: Z03.89 Encounter for observation for other suspected diseases and conditions ruled out (principal) | CPT/HCPCS: 80053; 80306 ==

== ENCOUNTER → 2020-08-02 08:31 | Outpatient (BNVA) | payer MEDICAID, SELFPAY | PROVIDERS: Visit Provider Nurse Practitioner Psychiatric/Mental Health | DX: F41.0 Panic disorder [episodic paroxysmal anxiety] (principal); F19.11 Other psychoactive substance abuse, in remission | CPT/HCPCS: 99214 ==

== ENCOUNTER 2020-08-21 22:27 | Inpatient (IN) | payer MEDICAID, SELFPAY ==
[2020-08-21 22:28] VITALS: BP 158/105; PULSE 104; RESP 18; TEMP 36.6; O2SAT 94; BMI 20.3
--- NOTE | 2020-08-21 22:43 | ED_ITS ---
HPI - Psych General: Chief Complaint: Psychiatric Symptoms Stated Complaint: SI Time Seen by Provider: 08/21/20 22:31 Source: patient, EMS and police Mode of arrival: EMS Limitations: no limitations History of Present Illness: HPI Narrative: 45-year-old female who is here from snf. She was in snf in a 12-hour hold for alcohol intoxication. While she was there she had tied shoelaces around her neck and told he is off she want to kill herself because she had had a drink water. Patient is now is adamantly denying any suicidal homicidality but does admit that she did tie the shoelaces around her neck to try to kill herself. She denies any worsening improving factors. Associated symptoms: Reports depression and suicidal ideation Review of Systems Const: Denies: fever(s), chills, body aches or change in appetite Eyes: Denies: blurry vision or eye discomfort ENMT: Denies: throat pain or dental pain Card: Denies: chest pain Resp: Denies: dyspnea GI: Denies: abdominal pain, nausea, vomiting or diarrhea : Denies: dysuria Musc: Denies: neck pain or back pain Skin/Breast: Denies: rash Neuro: Denies: headache(s) Psych: Reports: depression and suicidal ideation Arben/Lymph: Denies: easy bruising All/Imm: Denies: urticaria PFSH ED PFSH: Medical History Abdominal pain Chronic constipation Panic disorder Unintentional weight loss Vomiting blood Surgical History History of hysterectomy Family History Denies family history of Anesthesia complication Bleeding disorder Social History Smoking and tobacco status: current every day smoker cigarettes Packs smoked per day: 0.5 Years cigarettes smoked: 25 Quit status (tobacco): considering quitting Second hand smoke exposure: Yes Alcohol intake: never Adopted: No Caregiver/support person: Yes Lives independently: Yes Household members: spouse Current gender identity: Female Physical Exam Const: COMMON NORMALS: no acute distress, patient oriented x3 and healthy appearing HENMT: COMMON NORMALS: normocephalic and atraumatic HEAD & SCALP: normocephalic and atraumatic Eye: COMMON NORMALS: Equal, round and reactive pupils present and EOMs intact bilaterally PUPIL: Yes Equal, round and reactive pupils present Neck/C-Spine: COMMON NORMALS: full ROM and supple Chest: COMMONS NORMALS: normal inspection of the chest and normal palpation of entire chest wall Resp: COMMON NORMALS: normal respiratory effort, No retractions, No use of accessory muscles and clear to auscultation bilaterally AUSCULTATION: clear to auscultation bilaterally Cardio: COMMON NORMALS: regular rate, regular rhythm and No murmurs present (Cardio) RATE: regular rate RHYTHM: regular rhythm GI: COMMON NORMALS: Normal to inspection, nondistended, normoactive bowel sounds present, Soft to palpation, non-tender and no masses PALPATION: Yes Soft to palpation Extremity: COMMON NORMALS: normal to inspection and full ROM Neuro: COMMON NORMALS: patient oriented x3, moves all extremities and no focal motor deficits Psych: COMMON NORMALS: mental status grossly normal and cooperative THOUGHT CONTENT: Yes Suicidality present Skin: COMMON NORMALS: no rashes or lesions noted and no wounds GENERAL SKIN EXAM: no rashes or lesions noted Face to Face: Restrn/Seclusion Events leading up to initiation: Verbalizing threat to self or others Evaluation of patient's immediate situation: Alert and oriented and No signs of physical distress Patient reaction since intervention applied: Continued attempts/displays harmful behavior Recent labs reviewed: Yes Review of medications: Yes Patient's current medical/behavioral condition: No new concerns since last ROS Course Vital Signs: Vital signs: Vital Signs Temperature 97.8 F 08/21/20 22:28 Pulse Rate 104 H 08/21/20 22:28 Respiratory Rate 18 08/21/20 22:28 Blood Pressure 158/105 08/21/20 22:28 Pulse Oximetry 94 08/21/20 22:28 MDM - Psych MDM Narrative: Medical decision making narrative: Patient presents with suicidal ideation with attempt to strangle herself with shoelaces. Patient placed on a 96-hour hold. Patient originally was not getting blood draw but was able to verbally de-escalate she did allow us to give blood draw. When he came to place the scrubs on though she became violent and refused. Patient was given ketamine for medical restraint to be able to get her into the scrubs. Patient's been stable while here. I spoke to Dr. Salomon who will admit. Lab Data: Labs: Lab Results 08/21/20 08/21/20 08/21/20 Range/Units 22:58 22:58 22:58 WBC 6.0 (4.0-10.0) 10^3/ uL RBC 4.71 (4.1-5.3) 10^6/u L Hgb 15.1 (11.5-15.3) g/dL Hct 45.4 (37.0-47.0) % MCV 96.4 (81-99) fL MCH 32.1 (28.0-34.0) pg MCHC 33.3 (30.0-36.0) g/dL RDW 12.6 (12.1-15.1) % Plt Count 245 (130-400) 10^3/c mm MPV 9.8 (7.4-10.4) fL Neut % (Auto) 50.3 % Lymph % (Auto) 40.9 % [place] % (Auto) 7.2 % Eos % (Auto) 0.8 % Baso % (Auto) 0.5 % Neut # (Auto) 3.00 (1.8-7.7) 10^3/u L Lymph # (Auto) 2.4 (0.8-4.8) 10^3/u L [place] # (Auto) 0.4 (0.2-0.9) 10^3/u L Eos # (Auto) 0.1 (0.0-0.8) 10^3/u L Baso # (Auto) 0.0 (0.0-0.1) 10^3/u L Nucleated RBC % (a uto) 0 % Nucleated RBCs # 0.0 /100WBC Sodium 144 (136-145) mmol/L Potassium 4.2 (3.5-5.1) mmol/L Chloride 108 H (98-107) mmol/L Carbon Dioxide 25 (22-29) mmol/L Anion Gap 15.2 (5-19) BUN 11 (6-20) mg/dL Creatinine 0.8 (0.5-0.9) mg/dL GFR Calculation 76.9 L (90-130) mL/min Glucose 92 (65-115) mg/dL Calculated Osmolal ity 297 H (285-295) mOsm/k g Calcium 8.6 (8.5-10.5) mg/dL Total Bilirubin 0.3 (0.15-1.2) mg/dL AST 101 H (0-32) U/L ALT 123 H (0-33) U/L Alkaline Phosphata se 87 (35-105) IU/L Total Protein 7.4 (6.6-8.7) g/dL Albumin 4.4 (3.5-5.2) g/dL Globulin 3.0 (1.3-4.6) g/dL HCG, Qual Negative (Negative) Urine Color (Yellow) Urine Appearance (CLEAR) Urine pH (5-7) Ur Specific Gravit y (1.005-1.030) Urine Protein (Negative) Urine Glucose (UA) (Normal) Urine Ketones (Negative) Urine Blood (Negative) Urine Nitrate (Negative) Urine Bilirubin (Negative) Urine Urobilinogen (Negative) mg/dL Ur Leukocyte Ana ase (Negative) Salicylates < 0.3 L (3-10) mg/dL Urine Opiates Scre en (Negative) ng/mL Acetaminophen < 5.0 L (10-30) ug/mL Ur Barbiturates Sc reen (Negative) ng/mL Ur Phencyclidine S crn (Negative) ng/mL Ur Amphetamines Sc reen (Negative) ng/mL U Benzodiazepines Scrn (Negative) ng/mL Urine Cocaine Scre en (Negative) ng/mL U Marijuana (THC) Screen (Negative) ng/mL Ethyl Alcohol 141 H (0-10) mg/dL 08/21/20 08/21/20 Range/Units 23:10 23:10 WBC (4.0-10.0) 10^3/ uL RBC (4.1-5.3) 10^6/u L Hgb (11.5-15.3) g/dL Hct (37.0-47.0) % MCV (81-99) fL MCH (28.0-34.0) pg MCHC (30.0-36.0) g/dL RDW (12.1-15.1) % Plt Count (130-400) 10^3/c mm MPV (7.4-10.4) fL Neut % (Auto) % Lymph % (Auto) % [place] % (Auto) % Eos % (Auto) % Baso % (Auto) % Neut # (Auto) (1.8-7.7) 10^3/u L Lymph # (Auto) (0.8-4.8) 10^3/u L [place] # (Auto) (0.2-0.9) 10^3/u L Eos # (Auto) (0.0-0.8) 10^3/u L Baso # (Auto) (0.0-0.1) 10^3/u L Nucleated RBC % (a uto) % Nucleated RBCs # /100WBC Sodium (136-145) mmol/L Potassium (3.5-5.1) mmol/L Chloride (98-107) mmol/L Carbon Dioxide (22-29) mmol/L Anion Gap (5-19) BUN (6-20) mg/dL Creatinine (0.5-0.9) mg/dL GFR Calculation (90-130) mL/min Glucose (65-115) mg/dL Calculated Osmolal ity (285-295) mOsm/k g Calcium (8.5-10.5) mg/dL Total Bilirubin (0.15-1.2) mg/dL AST (0-32) U/L ALT (0-33) U/L Alkaline Phosphata se (35-105) IU/L Total Protein (6.6-8.7) g/dL Albumin (3.5-5.2) g/dL Globulin (1.3-4.6) g/dL HCG, Qual (Negative) Urine Color Yellow (Yellow) Urine Appearance Clear (CLEAR) Urine pH 7 (5-7) Ur Specific Gravit y 1.015 (1.005-1.030) Urine Protein Neg (Negative) Urine Glucose (UA) Norm (Normal) Urine Ketones Negative (Negative) Urine Blood Neg (Negative) Urine Nitrate Negative (Negative) Urine Bilirubin Neg (Negative) Urine Urobilinogen Norm (Negative) mg/dL Ur Leukocyte Ana ase Negative (Negative) Salicylates (3-10) mg/dL Urine Opiates Scre en Negative (Negative) ng/mL Acetaminophen (10-30) ug/mL Ur Barbiturates Sc reen Negative (Negative) ng/mL Ur Phencyclidine S crn Negative (Negative) ng/mL Ur Amphetamines Sc reen Negative (Negative) ng/mL U Benzodiazepines Scrn Negative (Negative) ng/mL Urine Cocaine Scre en Negative (Negative) ng/mL U Marijuana (THC) Screen Negative (Negative) ng/mL Ethyl Alcohol (0-10) mg/dL Discharge Plan Discharge Prescriptions: No Action escitalopram oxalate 10 mg tablet 10 mg PO QAM Qty: 30 RF: 1 gabapentin 600 mg tablet 600 mg PO TID Qty: 90 RF: 1 lactulose 10 gram/15 mL solution 10 gm PO BID 7 Days Qty: 210 RF: 0 baclofen 10 mg tablet 10 mg PO TID RF: 0 docusate sodium [DOK] 100 mg capsule 100 mg PO BID RF: 0 fenofibrate nanocrystallized 48 mg tablet 48 mg PO DAILY RF: 0 Protonix 40 mg tablet,delayed release (DR/EC) 40 mg PO DAILY 30 Days Qty: 30 RF: 2 clonazepam 1 mg tablet 1 mg PO TID Qty: 75 RF: 1 Coding Level of Care Code ED Transcribing Operators Supervisor for Chg Fwd Exam Comprehensive
[2020-08-21 23:00] LABS: Basophils % 0.5 %; Eosinophils # 0.1 10^3/uL (0.0-0.8); Eosinophils % 0.8 %; Hematocrit 45.4 % (37.0-47.0); Hemoglobin 15.1 g/dL (11.5-15.3); Lymphocytes # 2.4 10^3/uL (0.8-4.8); Lymphocytes % 40.9 %; Mean Corpuscular HGB Conc 33.3 g/dL (30.0-36.0); Mean Corpuscular Hemoglobin 32.1 pg (28.0-34.0); Mean Corpuscular Volume 96.4 fL (81-99); Mean Platelet Volume 9.8 fL (7.4-10.4); Monocytes # 0.4 10^3/uL (0.2-0.9); Monocytes % 7.2 %; Neutrophils % 50.3 %; Nucleated Red Blood Cells % 0 %; Platelet Count 245 10^3/cmm (130-400); Red Blood Count 4.71 10^6/uL (4.1-5.3); Red Cell Distribution Width 12.6 % (12.1-15.1)
[2020-08-21 23:13] LABS: Add Urine Microscopic? NO; Charge for UA Resulting for Rev
[2020-08-21 23:14] LABS: Bilirubin Urine Neg (Negative); Blood Urine Neg (Negative); Glucose Urine UA Norm (Normal); Ketones Urine Negative (Negative); Leukocyte Esterase Urine Negative (Negative); Nitrate Urine Negative (Negative); Protein Urine Neg (Negative); Specific Gravity, Urine 1.015 (1.005-1.030); Urine Appearance Clear (CLEAR); Urine Color Yellow (Yellow); Urobilinogen Urine Norm (Negative); pH Urine 7 (5-7)
[2020-08-21 23:18] LABS: Acetaminophen < 5.0 ug/mL (10-30); Alanine Aminotransferase 123 U/L (0-33); Albumin Level 4.4 g/dL (3.5-5.2); Alcohol Level 141 mg/dL (0-10); Alkaline Phosphatase 87 IU/L (35-105); Anion Gap 15.2 (5-19); Aspartate Amino Transferase 101 U/L (0-32); Blood Urea Nitrogen 11 mg/dL (6-20); Calcium 8.6 mg/dL (8.5-10.5); Carbon Dioxide 25 mmol/L (22-29); Chloride 108 mmol/L (98-107); Glomerular Filtration Rate 76.9 mL/min (90-130); Glucose 92 mg/dL (65-115); HCG, Serum Qual Negative (Negative); Osmolality Calculated 297 mOsm/kg (285-295); Potassium 4.2 mmol/L (3.5-5.1); Salicylate < 0.3 mg/dL (3-10); Sodium 144 mmol/L (136-145); Total Bilirubin 0.3 mg/dL (0.15-1.2); Total Protein 7.4 g/dL (6.6-8.7)
[2020-08-21 23:23] LABS: Amphetamines Screen Urine Negative (Negative); Barbiturates Screen Urine Negative (Negative); Benzodiazepines Screen Urine Negative (Negative); Cocaine Screen Urine Negative (Negative); Opiate Screen Urine Negative (Negative); PCP Screen Urine Negative (Negative); THC Screen Urine Negative (Negative)
[2020-08-21 23:49] VITALS: BP 174/99; PULSE 135; RESP 20; O2SAT 93
[2020-08-22] VITALS (10 sets, daily range): BP systolic 125–167; BP diastolic 85–112; PULSE 72–113; RESP 15–19; TEMP 36.7–37.1; O2SAT 91–97
--- NOTE | 2020-08-22 00:24 | PC.NURSE ---
2336 - Patient began being combative and uncooperative with staff, refusing to change into scrubs. Dr. Meléndez ordered patient to be manually restrained using SAFE techniques in order to give Ketamine to chemically restrain patient to protect patient and staff. Patient nor staff was harmed during manual hold and chemical sedation. Patient was placed on monitor and vital signs will be taken according to hospital policy.
--- NOTE | 2020-08-22 01:06 | PC.NURSE ---
Called report to PIERRE Neal in NPU
--- NOTE | 2020-08-22 01:53 | PC.NURSE ---
Patient is on a 96 hour hold. In trying to get patient changed out into paper scrubs patient began combative toward nurses, security, and ED physician. Deescalation techniques were used, unsuccessfully. Per physician order Ketamine was administered after patient was manually restrained. Manual restraint ended immediately after medication administration. Patient was then moved to ED room 7 and placed on registered nurse cardiac telemetry. Manual restraint and Ketamine administration was at 2336.
[2020-08-22] MEDS: acetaminophen 325 mg Tablet 650 MG PO ×2 (02:22→19:27)
[2020-08-22] MEDS: nicotine 2 mg Gum BUCCAL ×5 (02:22→17:56)
[2020-08-22] MEDS: hyDROXYzine 25 mg Capsule 50 MG PO (03:17)
--- NOTE | 2020-08-22 05:23 | PC.NURSE ---
Skin assessment revealed no wounds or injuries.
[2020-08-22] MEDS: fenofibrate 48 mg Tablet PO (08:44)
[2020-08-22] MEDS: gabapentin 400 mg Capsule 800 MG PO (08:44)
[2020-08-22] MEDS: baclofen 10 mg Tablet PO ×3 (08:44→19:48)
[2020-08-22] MEDS: docusate sodium 100 mg Capsule PO ×2 (08:45→19:48)
[2020-08-22] MEDS: hydroCHLOROthiazide 25 mg Tablet 12.5 MG PO (08:45)
[2020-08-22] MEDS: pantoprazole DR 40 mg Tablet PO (08:45)
[2020-08-22] MEDS: meloxicam 7.5 mg tablet 15 MG PO (08:45)
[2020-08-22] MEDS: CLONazepam 1 mg Tablet PO (08:45)
--- NOTE | 2020-08-22 13:50 | P.HP_ITS ---
Providers/Chief Complaint Admitting Physician: Brittany Salomon DO Chief Complaint: SI HPI NPU History of Present Illness Diya Marroquin is a 45 year old female with longstanding history of anxiety with history of substance abuse but reports having been clean for several months although reports recent relapse with alcohol in the context of argument with fianc? and family as well as worsening pain. Patient states that she did not recall making suicidal statements but does state that she did call the placement secretary herself but does not recall why other than knowing that she was making people around her upset. Patient was combative at the time of her emergency department evaluation and was provided as needed medication. Patient states that she has been followed on an outpatient basis by [facility] since January 2020 and has for medication management appointments with MELISSA Ramirez for anxiety disorder, panic attacks. Patient currently denying any depressed symptoms, denies any suicidal ideation. Patient denies any trauma related symptoms despite reporting significant past history of trauma. Denies any recent or past hypomanic or manic episodes. Patient reports daily anxiety symptoms, excessive worry, difficulty controlling worrying, increased muscle tension, difficulty with initiating sleep secondary to racing thoughts. Reports periodic panic attacks and also reports difficulty with being in crowded places for prolonged periods. She states that she has been treated with multiple medications in the past for anxiety to include Paxil, clonazepam as needed. Psychiatric review of systems is otherwise negative. Reports that she is about to move in with her fianc? in a trailer and reports ongoing family stressors. Review of Systems General: Reports: 10 or more systems reviewed and unremarkable except in HPI and below Meds NPU Home Medications Medication Instructions Recorded Confirmed Last Taken Type pantoprazole 40 mg tablet,delayed 40 mg PO DAILY 30 Days #30 tab 03/13/20 08/22/20 Unknown Rx release baclofen 10 mg tablet 10 mg PO TID 07/10/20 08/22/20 Unknown History docusate sodium 100 mg capsule 100 mg PO BID 07/10/20 08/22/20 Unknown History fenofibrate nanocrystallized 48 mg 48 mg PO DAILY 07/10/20 08/22/20 Unknown History tablet albuterol sulfate [ProAir HFA] 2 puff INHALATION 6XD PRN 08/22/20 08/22/20 Unknown History clonazepam 1 mg PO BID 08/22/20 08/22/20 Unknown History gabapentin 800 mg PO TID 08/22/20 08/22/20 Unknown History hydrochlorothiazide 12.5 mg PO DAILY 08/22/20 08/22/20 Unknown History meloxicam 15 mg PO DAILY 08/22/20 08/22/20 Unknown History Allergies Allergy/AdvReac Type Severity Reaction Status Date / Time No Known Allergies Allergy Verified 07/26/20 14:20 PFSH NPU PFSH: Medical History Abdominal pain Chronic constipation Panic disorder Unintentional weight loss Vomiting blood Surgical History History of hysterectomy Family History Denies family history of Anesthesia complication Bleeding disorder Social History Smoking and tobacco status: current every day smoker cigarettes Packs smoked per day: 0.5 Years cigarettes smoked: 25 Quit status (tobacco): considering quitting Second hand smoke exposure: Yes Alcohol intake: never Adopted: No Caregiver/support person: Yes Lives independently: Yes Household members: spouse Current gender identity: Female Other Psychiatric History: Other Psychiatric History: Reports past psychiatric treatment to include psychiatric hospitalizations between 2012 and 2015 but denies any subsequent psychiatric hospitalizations Denies any past suicide attempts or self-harm behavior Mental Status Exam MSE Comments: Short hair, facial tattoos and tattoos all over exposed skin, calm, cooperative, interactive, appropriately groomed and dressed wearing hospital scrubs, good eye contact Psychomotor activity is neither increased nor decreased, no agitation Speech is normal rate, normal volume, spontaneous, clear reticulation, not pressured I feel pretty good, full range of affect, smiles appropriate times during interview, not labile Alert and oriented to person, place, time, situation Memory concentration appear to be intact per interview Intellectual functioning appears to be average based on vocabulary, interview Thought process, linear, no flight of ideas, no looseness of associations Thought content, no delusions, no hallucinations, no suicidal or homicidal i deation Insight and judgment appear to be fair Vitals/I&O/Wt Last Vital Signs Temp 98.1 F 08/22/20 06:00 Pulse 92 08/22/20 06:00 Resp 15 08/22/20 06:00 BP 126/85 08/22/20 06:00 Pulse Ox 93 08/22/20 06:00 Weight last 48 hrs Weight 58.967 kg Data NPU : 08/21/20 22:58 08/21/20 22:58 A&P Assessment and plan (1) Alcohol intoxication: Status: Acute Qualifiers: Complication of substance-induced condition: uncomplicated Qualified Code(s): F10.920 - Alcohol use, unspecified with intoxication, uncomplicated (2) Suicidal ideation: Status: Acute (3) Panic disorder: Status: Chronic Additional A&P Information Patient presented with suicidal ideation, and alcohol intoxication, combative, physically agitated with past history of substance abuse although no indicators of any recent abuse although patient had recently relapsed with alcohol in the context of ongoing, acute stressors. Patient reports daily anxiety symptoms with intermittent panic attacks. Patient would benefit from restarting home medications with taper of clonazepam while titrating up with her Lexapro to address her daily anxiety symptoms which reportedly cause significant impairment. INVOLUNTARY ADMIT to inpatient psychiatry START Lexapro 5 mg daily with plan to titrate up targeting anxiety, panic symptoms CONTINUE gabapentin 600 mg by mouth 3 times daily, patient reports significant clouding of cognition with higher doses DECREASE to clonazepam 0.5 mg twice daily while titrating up on Lexapro, patient currently on gabapentin to cross cover for any concerns about withdrawal COORDINATE with delinquency prevention social worker for post discharge mental health care to include therapy/counseling targeting the development of more adaptive coping strategies in the context of ongoing life and medical stressors Involuntary Hold Information 96 Hour Hold: 96 Hour Involuntary Admission: Yes 96 Hour Hold Ending Date: 08/27/20 96 Hour Hold Ending Time: 22:52 Attestations NPU Medical Necessity Statement*: Psychiatric hospitalization is indicated for medication stabilization, coordination for safe discharge Anticipate hospital stay to exceed 2 midnights Time Spent in Patient Care: Greater than 35 minutes (>than 50% of time spent in counselling and/or direct pt care on unit) . Coding Level of Care Code Acute Quality Facilitator for [employer] [place] Diagnoses Alcohol intoxication F10.920 Complication of substance-induced condition: uncomplicated Suicidal ideation R45.851 Panic disorder F41.0
[2020-08-22] MEDS: escitalopram 10 mg Tablet 5 MG PO (14:10)
[2020-08-22] MEDS: gabapentin 300 mg Capsule 600 MG PO ×2 (14:12→19:47)
[2020-08-22] MEDS: CLONazepam 0.5 mg Tablet PO (19:47)
[2020-08-23 06:00] VITALS: BP 128/86; PULSE 73; RESP 17; TEMP 36.7; O2SAT 95
[2020-08-23] MEDS: baclofen 10 mg Tablet PO ×3 (06:12→21:27)
[2020-08-23] MEDS: gabapentin 300 mg Capsule 600 MG PO ×3 (07:58→21:27)
[2020-08-23] MEDS: fenofibrate 48 mg Tablet PO (07:58)
[2020-08-23] MEDS: hydroCHLOROthiazide 25 mg Tablet 12.5 MG PO (07:59)
[2020-08-23] MEDS: docusate sodium 100 mg Capsule PO ×2 (07:59→21:27)
[2020-08-23] MEDS: CLONazepam 0.5 mg Tablet PO ×2 (07:59→21:26)
[2020-08-23] MEDS: pantoprazole DR 40 mg Tablet PO (08:00)
[2020-08-23] MEDS: escitalopram 10 mg Tablet 5 MG PO (08:00)
[2020-08-23] MEDS: meloxicam 7.5 mg tablet 15 MG PO (08:00)
[2020-08-23] MEDS: nicotine 2 mg Gum BUCCAL ×2 (08:00→10:38)
[2020-08-23] MEDS: nicotine 21 mg Patch 1 PATCH TRANSDERMA (13:02)
[2020-08-23 14:00] VITALS: BP 117/78; PULSE 68; RESP 20; TEMP 37.1; O2SAT 94
--- NOTE | 2020-08-23 16:25 | PC.RESP ---
SMOKING CESSATION INFORMATION SENT TO PATIENT.
--- NOTE | 2020-08-23 16:53 | PM.NPN ---
Subjective NPU Subjective: Interval history: She is in today reporting that she is ready to be discharged and reporting that everyone from To the therapist to the nurses and told her the days he came in the next day that she was going home that morning. We discussed the fact that she is on a 96-hour hold and she quickly advised that she knows but that we can discharge her whenever we want to. We discussed the concerns from her drinking with pending hepatitis C treatment her elevated alcohol level even after she had been in longterm prior to presenting at the hospital which she reports she understands. Additionally she expressed displeasure at the fact that her medication had been reduced by Dr. Salomon and denied that he had advised her he was decreasing it. We discussed the rationale for such a decrease in her situation which she reported that she been taking the medication for 25+ years. We discussed that every day is a fresh day and that we will talk and consider whether discharge is appropriate tomorrow but that our focus is on evaluating the 96-hour hold criteria and whether she is safe for discharge. Mental Status Exam MSE Comments: This is a slender tall white female in hospital scrubs with adequate grooming and eye contact. With multiple tattoos on exposed skin. No abnormal movements except for mild psychomotor agitation. Mostly cooperative with exam in mild distress. Speech was slightly increased rate normal volume. Mood described as I am good, affect irritable. Thought process organized. Thought content: Patient denied suicidal or homicidal ideation, there were no delusions reported or noted, she denied any auditory or visual hallucinations. Attention and concentration appear intact and memory appeared mostly reliable but none were formally tested. She is alert and oriented x3. Insight and judgment are limited, impulse control is limited. Vitals/I&O/Wt Last Vital Signs Temp 98.8 F 08/23/20 14:00 Pulse 68 08/23/20 14:00 Resp 20 H 08/23/20 14:00 BP 117/78 08/23/20 14:00 Pulse Ox 94 08/23/20 14:00 Weight last 48 hrs Weight 58.967 kg Data NPU : 08/21/20 22:58 08/21/20 22:58 A&P Assessment and plan (1) Suicidal ideation: Status: Acute (2) Alcohol intoxication: Status: Acute Qualifiers: Complication of substance-induced condition: uncomplicated Qualified Code(s): F10.920 - Alcohol use, unspecified with intoxication, uncomplicated (3) Panic disorder: Status: Chronic (4) Positive hepatitis C antibody test: Status: Acute (5) Chronic constipation: Status: Acute (6) Abdominal pain: Status: Acute Additional A&P Information This is a 45-year-old white female with a long history of addiction and mental health issues including anxiety who presents with active alcohol use with reported plan for hepatitis C treatment on a 96-hour hold due to reported suicidal behavior. 1. Continue current medication. 2. Continue every 15 minute checks for safety. 3. Encourage individual, group and milieu therapies. 4. Encourage sober living treatment after discharge at the highest level of care to which he is willing to commit. Involuntary Hold Information 96 Hour Hold: 96 Hour Involuntary Admission: Yes 96 Hour Hold Ending Date: 08/27/20 96 Hour Hold Ending Time: 22:52 Attestations NPU Medical Necessity Statement*: Inpatient hospitalization is medically necessary and the clinically appropriate intervention at this time. We will monitor medications and make changes as indicated. Likely length of stay 1-3 days. Coding Level of Care Code Acute School Psychological Examiner for [employer] Diagnoses Suicidal ideation R45.851 Alcohol intoxication F10.920 Complication of substance-induced condition: uncomplicated Panic disorder F41.0 Positive hepatitis C antibody test R76.8 Chronic constipation K59.09 Abdominal pain R10.9
[2020-08-23 21:22] VITALS: PULSE 81; RESP 18; O2SAT 95
[2020-08-23] MEDS: acetaminophen 325 mg Tablet 650 MG PO (21:29)
[2020-08-23 22:00] VITALS: BP 123/89; PULSE 76; RESP 19; TEMP 36.8; O2SAT 96
[2020-08-24 06:00] VITALS: BP 102/68; PULSE 66; RESP 17; TEMP 36.6; O2SAT 96
[2020-08-24] MEDS: baclofen 10 mg Tablet PO ×3 (06:41→20:36)
[2020-08-24 08:12] VITALS: PULSE 86; RESP 18; O2SAT 96
[2020-08-24] MEDS: nicotine 2 mg Gum BUCCAL ×2 (09:01→19:20)
[2020-08-24] MEDS: meloxicam 7.5 mg tablet 15 MG PO (09:01)
[2020-08-24] MEDS: gabapentin 300 mg Capsule 600 MG PO ×3 (09:01→20:35)
[2020-08-24] MEDS: fenofibrate 48 mg Tablet PO (09:01)
[2020-08-24] MEDS: hydroCHLOROthiazide 25 mg Tablet 12.5 MG PO (09:02)
[2020-08-24] MEDS: pantoprazole DR 40 mg Tablet PO (09:02)
[2020-08-24] MEDS: CLONazepam 0.5 mg Tablet PO ×2 (09:02→20:35)
[2020-08-24] MEDS: escitalopram 10 mg Tablet 5 MG PO (09:02)
[2020-08-24] MEDS: docusate sodium 100 mg Capsule PO ×2 (09:02→20:36)
[2020-08-24] MEDS: nicotine 21 mg Patch 1 PATCH TRANSDERMA (12:00)
[2020-08-24 14:00] VITALS: BP 119/74; PULSE 75; RESP 18; TEMP 37.1; O2SAT 93
--- NOTE | 2020-08-24 14:42 | P.PN_ITS ---
Subjective NPU Subjective: Interval history: Selena presents today reporting that she had a good conversation with the new program from [facility]. The plan is that they will connect with her early next week and are going to be able to assist her in some of the challenging psychosocial issues she is trying to navigate. She continues to report that she is feeling better and seems to be more open to looking at the seriousness of her drinking given her hepatitis C status. We discussed the possibility of discharge in the morning. Mental Status Exam MSE Comments: This is a slender tall white female in hospital scrubs with adequate grooming and eye contact. With multiple tattoos on exposed skin. No abnormal movements. Mostly cooperative with exam in no acute. Speech was slightly increased rate normal volume. Mood described as good, affect congruent. Thought process organized. Thought content: Patient denied suicidal or homicidal ideation, there were no delusions reported or noted, she denied any auditory or visual hallucinations. Attention and concentration appear intact and memory appeared reliable but none were formally tested. She is alert and oriented x3. Insight and judgment are improving, impulse control is limited, but improving. Vitals/I&O/Wt Last Vital Signs Temp 98.7 F 08/24/20 14:00 Pulse 75 08/24/20 14:00 Resp 18 08/24/20 14:00 BP 119/74 08/24/20 14:00 Pulse Ox 93 08/24/20 14:00 Data NPU : 08/21/20 22:58 08/21/20 22:58 A&P Additional A&P Information (1) Suicidal ideation: (2) Alcohol intoxication: (3) Panic disorder: (4) Positive hepatitis C antibody test: (5) Chronic constipation: (6) Abdominal pain: Additional A&P Information This is a 45-year-old white female with a long history of addiction and mental health issues including anxiety who presents with active alcohol use with reported plan for hepatitis C treatment on a 96-hour hold due to reported suicidal behavior. 1. Continue current medication. 2. Continue every 15 minute checks for safety. 3. Encourage individual, group and milieu therapies. 4. Encourage sober living treatment after discharge at the highest level of care to which she is willing to commit. Involuntary Hold Information 96 Hour Hold: 96 Hour Involuntary Admission: Yes 96 Hour Hold Ending Date: 08/27/20 96 Hour Hold Ending Time: 22:52 Attestations NPU 2 Medical Necessity Statement*: Inpatient hospitalization is medically necessary and the clinically appropriate intervention at this time. We will monitor medic ations and make changes as indicated. Likely length of stay 1-2 days. Coding Level of Care Code Acute [place] Inspector for Go [employer]ox
[2020-08-24 19:49] VITALS: PULSE 77; RESP 18; O2SAT 94
[2020-08-24] MEDS: acetaminophen 325 mg Tablet 650 MG PO (20:36)
[2020-08-24 21:46] VITALS: BP 155/92; PULSE 89; RESP 20; TEMP 36.8; O2SAT 94
[2020-08-25 05:51] VITALS: BP 95/58; PULSE 59; RESP 16; TEMP 36.5; O2SAT 92
[2020-08-25] MEDS: baclofen 10 mg Tablet PO (06:56)
[2020-08-25] MEDS: nicotine 2 mg Gum BUCCAL (07:00)
[2020-08-25] MEDS: hydroCHLOROthiazide 25 mg Tablet 12.5 MG PO (08:15)
[2020-08-25] MEDS: docusate sodium 100 mg Capsule PO (08:16)
[2020-08-25] MEDS: escitalopram 10 mg Tablet 5 MG PO ×2 (08:16→11:02)
[2020-08-25] MEDS: pantoprazole DR 40 mg Tablet PO (08:16)
[2020-08-25] MEDS: meloxicam 7.5 mg tablet 15 MG PO (08:16)
[2020-08-25] MEDS: CLONazepam 0.5 mg Tablet PO (08:16)
[2020-08-25] MEDS: fenofibrate 48 mg Tablet PO (08:16)
[2020-08-25] MEDS: gabapentin 300 mg Capsule 600 MG PO (08:16)
[2020-08-25 08:41] VITALS: PULSE 70; RESP 18; O2SAT 97
--- NOTE | 2020-08-25 10:57 | P.DS_ITS ---
Diagnoses at Discharge Discharge Diagnosis (1) Suicidal ideation: Status: Resolved (2) Alcohol intoxication: Status: Resolved Qualifiers: Complication of substance-induced condition: uncomplicated Qualified Code(s): F10.920 - Alcohol use, unspecified with intoxication, uncomplicated (3) Panic disorder: Status: Chronic (4) Positive hepatitis C antibody test: Status: Resolved (5) Chronic constipation: Status: Resolved (6) Abdominal pain: Status: Resolved Reason for Visit Reason for Visit: SI Brief History: History of Present Illness Diya Marroquin is a 45 year old female with longstanding history of anxiety with history of substance abuse but reports having been clean for several months although reports recent relapse with alcohol in the context of argument with fianc? and family as well as worsening pain. Patient states that she did not recall making suicidal statements but does state that she did call the chain maker loom control herself but does not recall why other than knowing that she was making people around her upset. Patient was combative at the time of her emergency department evaluation and was provided as needed medication. Patient states that she has been followed on an outpatient basis by [facility] since January 2020 and has for medication management appointments with MELISSA Ramirez for anxiety disorder, panic attacks. Patient currently denying any depressed symptoms, denies any suicidal ideation. Patient denies any trauma related symptoms despite reporting significant past history of trauma. Denies any recent or past hypomanic or manic episodes. Patient reports daily anxiety symptoms, excessive worry, difficulty controlling worrying, increased muscle tension, difficulty with initiating sleep secondary to racing thoughts. Reports periodic panic attacks and also reports difficulty with being in crowded places for prolonged periods. She states that she has been treated with multiple medications in the past for anxiety to include Paxil, clonazepam as needed. Psychiatric review of systems is otherwise negative. Reports that she is about to move in with her fianc? in a trailer and reports ongoing family stressors. Hospital Course Hospital Course Selena presented to the emergency department with suicidal thinking depression and active addiction. She was admitted to the neuropsychiatric unit for definitive treatment of those issues on a 96-hour hold. On the unit she slowly acclimated to the individual, group and milieu therapies provided. She was very focused on discharge and often had frustration regarding the fact that she felt she was advised each day that she was going to be discharged. She is initially very focused on Klonopin and how much she normally gets and how much she should get an not understanding the issue with her taking the medication with her issues with drinking. Additionally she is also getting treatment for hepatitis C and we had a long conversation regarding the impact of drinking on a healthy liver against the backdrop of hepatitis C. She was started on Lexapro which was titrated to 10 mg p.o. every morning and her medications were continued and her Klonopin was decreased. She is able to contract for safety prior to discharge. During the hospitalization, patient had routine laboratory studies which were within normal limits except for few outliers. Additionally there was a general medical evaluation which was also within normal limits and revealed no new acute processes. Discharge Summary: At the time of discharge, she denied psychosis or lethality. Mood and anxiety were well managed. Patient endorsed a plan to avoid all drugs of abuse and follow-up with the aftercare recommendations of the treatment team. Patient was evaluated and deemed to be absent credible lethality, and had achieved the maximum benefit from an inpatient hospitalization, so was discharged. Involuntary Hold Information 96 Hour Hold: 96 Hour Involuntary Admission: Yes 96 Hour Hold Ending Date: 08/27/20 96 Hour Hold Ending Time: 22:52 Mental Status Exam MSE Comments: This is a slender tall white female in hospital scrubs with adequate grooming and eye contact. With multiple tattoos on exposed skin. No abnormal movements. Cooperative with exam in no acute. Speech was slightly increased rate normal volume. Mood described as good, affect congruent. Thought process organized. Thought content: Patient denied suicidal or homicidal ideation, there were no delusions reported or noted, she denied any auditory or visual hallucinations. Attention and concentration appear intact and memory appeared reliable but none were formally tested. She is alert and oriented x3. Insight and judgment are improving, impulse control is improving. Discharge Data Vitals: Last Vital Signs Temp 97.7 F 08/25/20 05:51 Pulse 70 08/25/20 08:41 Resp 18 08/25/20 08:41 BP 95/58 08/25/20 05:51 Pulse Ox 97 08/25/20 08:41 Discharge Plan Discharge Patient Disposition: Home Condition: Stable Prescriptions: Continued baclofen 10 mg tablet 10 mg PO TID RF: 0 docusate sodium [DOK] 100 mg capsule 100 mg PO BID RF: 0 fenofibrate nanocrystallized 48 mg tablet 48 mg PO DAILY RF: 0 Protonix 40 mg tablet,delayed release (DR/EC) 40 mg PO DAILY 30 Days Qty: 30 RF: 2 meloxicam 15 mg Tablet 15 mg PO DAILY RF: 0 ProAir HFA 90 mcg/actuation Hfa Aerosol Inhaler 2 puff INHALATION 6XD PRN (Reason: Shortness Of Breath) RF: 0 hydrochlorothiazide 12.5 mg Tablet 12.5 mg PO DAILY RF: 0 Discontinued gabapentin 600 mg tablet 800 mg PO TID RF: 0 No Action clonazepam 0.5 mg tablet 0.5 mg PO DAILY Qty: 30 RF: 1 escitalopram oxalate [Lexapro] 20 mg tablet 20 mg PO DAILY Qty: 30 RF: 2 gabapentin 800 mg tablet 800 mg PO TID Qty: 90 RF: 2 mirtazapine [Remeron] 15 mg tablet 15 mg PO DAILY Qty: 30 RF: 2 sofosbuvir-velpatasvir [Epclusa] 400-100 mg tablet 1 tab PO DAILY 84 Days Qty: 28 RF: 2 Discharge Orders: Discharge Order (Routine); Ordered 08/25/20 Ordered By: Chencho Arteaga Referrals: [facility] [Other] (M-F 7:00 PM ) [facility] [Outside] (ERE Program with Chief Administrative Officer, Sina Martin.) [facility] [Outside] Kari Ramirez APRN [Nurse Practitioner] - 08/30/20 9:00 am Discharge Diet: Regular Discharge Activity: Resume usual activity Patient Instructions: Clonazepam (By mouth), Gabapentin (By mouth), Escitalopram (By mouth), Opioid Safety Discharge Attestations NPU Time Spent in Discharge Care*: less than 30 min Specific Discharge Activities: Specific discharge activities: educating patient, discussing with case management director/social workers/dc planners, documenting/other paperwork and evaluating patient/reviewing data Coding Level of Care Code Acute Chg FW DC note Diagnoses Suicidal ideation R45.851 Alcohol intoxication F10.920 Complication of substance-induced condition: uncomplicated Panic disorder F41.0 Positive hepatitis C antibody test R76.8 Chronic constipation K59.09 Abdominal pain R10.9
[2020-08-25 11:20] VITALS: PULSE 70; RESP 18; O2SAT 97
== END 2020-08-25 11:49 | disposition home or self-care (01) | DRG 897 ==
LOC: ER 22:46 → NP 08-22 01:14
PROVIDERS: Physician Assistant; Admitting Provider Psychiatry & Neurology Psychiatry; Emergency Provider Emergency Medicine; Visit Provider Psychiatry & Neurology Psychiatry
DX: F10.129 Alcohol abuse with intoxication, unspecified (principal); R45.851 Suicidal ideations; F41.9 Anxiety disorder, unspecified; K59.09 Other constipation; F41.0 Panic disorder [episodic paroxysmal anxiety]; F17.210 Nicotine dependence, cigarettes, uncomplicated; B19.20 Unspecified viral hepatitis C without hepatic coma; R10.9 Unspecified abdominal pain
CPT/HCPCS: 80053; 80306; 80307; 81003; 84703; 85025; 96372; 99285; J3490

== ENCOUNTER → 2020-08-30 07:32 | Outpatient (BNVA) | payer MEDICAID, SELFPAY | PROVIDERS: Visit Provider Nurse Practitioner Psychiatric/Mental Health | DX: F41.0 Panic disorder [episodic paroxysmal anxiety] (principal); F15.11 Other stimulant abuse, in remission | CPT/HCPCS: 99214 ==

== ENCOUNTER → 2020-09-17 12:42 | Outpatient (BNVA) | payer MEDICAID, SELFPAY | PROVIDERS: Visit Provider Psychiatry & Neurology Psychiatry | DX: F41.1 Generalized anxiety disorder (principal); F41.0 Panic disorder [episodic paroxysmal anxiety]; F15.21 Other stimulant dependence, in remission; F10.10 Alcohol abuse, uncomplicated | CPT/HCPCS: 99214 ==

== ENCOUNTER 2020-09-19 22:26 | Inpatient (IN) | payer MEDICAID, SELFPAY ==
[2020-09-19 22:27] VITALS: BP 165/113; PULSE 105; RESP 15; TEMP 37.1; O2SAT 94; BMI 24.5
--- NOTE | 2020-09-19 22:30 | ECG_ITS ---
[facility] Test Date: 2020-09-19 Pat Name: Diya Marroquin Department: Room: Gender: Female Ticket Sorter: : 1975 Requested By: Mandy Meléndez Order Number: [id number] Rosa MD: Matthias Georges M.D. Measurements Intervals Anthony Rate: 92 P: 62 MN: 157 QRS: 2 QRSD: 88 T: 40 QT: 321 QTc: 399 Interpretive Statements SINUS RHYTHM Compared to ECG 04/07/2020 04:54:01 Sinus tachycardia no longer present Electronically Signed On 09-20-2020 18:25:16 CDT by Matthias Georges M.D. [id number]
--- NOTE | 2020-09-19 22:33 | ED_ITS ---
HPI - Overdose General: Chief Complaint: Overdose Stated Complaint: OVERDOSE Time Seen by Provider: 09/19/20 22:29 Source: patient and EMS Mode of arrival: EMS Limitations: no limitations History of Present Illness: HPI Narrative: 45-year-old female states that she is lonely and does not need to see her kids and has been having suicidal thoughts. States that roughly 1 hour ago she took 22 800 mg gabapentin's in an attempt to kill herself. She states she has been having these thoughts to herself for couple days. Denies any worsening improving factors. She is awake alert able answer my questions here. MD complaint: intentional overdose Review of Systems Const: Denies: fever(s), chills, body aches or change in appetite Eyes: Denies: blurry vision or eye discomfort ENMT: Denies: throat pain or dental pain Card: Denies: chest pain Resp: Denies: dyspnea GI: Denies: abdominal pain, nausea, vomiting or diarrhea : Denies: dysuria Musc: Denies: neck pain or back pain Skin/Breast: Denies: rash Neuro: Denies: headache(s) Psych: Reports: suicidal ideation Arben/Lymph: Denies: easy bruising All/Imm: Denies: urticaria PFSH ED PFSH: Medical History Abdominal pain Chronic constipation Panic disorder Unintentional weight loss Vomiting blood Surgical History History of hysterectomy Family History Denies family history of Anesthesia complication Bleeding disorder Social History Smoking and tobacco status: current every day smoker cigarettes Packs smoked per day: 0.5 Years cigarettes smoked: 25 Quit status (tobacco): considering quitting Second hand smoke exposure: Yes Alcohol intake: never Adopted: No Caregiver/support person: Yes Lives independently: Yes Household members: spouse Current gender identity: Female Physical Exam Const: COMMON NORMALS: no acute distress, patient oriented x3 and healthy appearing HENMT: COMMON NORMALS: normocephalic and atraumatic HEAD & SCALP: normocephalic and atraumatic Eye: COMMON NORMALS: Equal, round and reactive pupils present and EOMs intact bilaterally PUPIL: Yes Equal, round and reactive pupils present Neck/C-Spine: COMMON NORMALS: full ROM and supple Chest: COMMONS NORMALS: normal inspection of the chest and normal palpation of entire chest wall Resp: COMMON NORMALS: normal respiratory effort, No retractions, No use of accessory muscles and clear to auscultation bilaterally AUSCULTATION: clear to auscultation bilaterally Cardio: COMMON NORMALS: regular rate, regular rhythm and No murmurs present (Cardio) RATE: regular rate RHYTHM: regular rhythm GI: COMMON NORMALS: Normal to inspection, nondistended, normoactive bowel sounds present, Soft to palpation, non-tender and no masses PALPATION: Yes Soft to palpation Extremity: COMMON NORMALS: normal to inspection and full ROM Neuro: COMMON NORMALS: patient oriented x3, moves all extremities and no focal motor deficits Psych: COMMON NORMALS: mental status grossly normal, Normal thought process p resent and cooperative THOUGHT PROCESS: Normal thought process present THOUGHT CONTENT: Yes Suicidality present Skin: COMMON NORMALS: no rashes or lesions noted and no wounds GENERAL SKIN EXAM: no rashes or lesions noted Course Vital Signs: Vital signs: Vital Signs Temperature 98.7 F 09/19/20 22:27 Pulse Rate 105 H 09/19/20 22:27 Respiratory Rate 15 09/19/20 22:27 Blood Pressure 165/113 09/19/20 22:27 Pulse Oximetry 94 09/19/20 22:27 MDM - Overdose MDM Narrative: Medical decision making narrative: Patient presents here with a overdose on gabapentin. I did give her charcoal here. She is also intoxicated as well. Patient placed under 96-hour hold and will admit to the ICU at this time. Lab Data: Labs: Lab Results 09/19/20 09/19/20 09/19/20 Range/Units 22:20 22:20 22:20 WBC 5.0 (4.0-10.0) 10^3/ uL RBC 4.55 (4.1-5.3) 10^6/u L Hgb 14.6 (11.5-15.3) g/dL Hct 43.4 (37.0-47.0) % MCV 95.4 (81-99) fL MCH 32.1 (28.0-34.0) pg MCHC 33.6 (30.0-36.0) g/dL RDW 13.8 (12.1-15.1) % Plt Count 260 (130-400) 10^3/c mm MPV 9.5 (7.4-10.4) fL Neut % (Auto) 30.6 % Lymph % (Auto) 59.4 % Creek % (Auto) 7.8 % Eos % (Auto) 1.4 % Baso % (Auto) 0.6 % Neut # (Auto) 1.54 L (1.8-7.7) 10^3/u L Lymph # (Auto) 3.0 (0.8-4.8) 10^3/u L Creek # (Auto) 0.4 (0.2-0.9) 10^3/u L Eos # (Auto) 0.1 (0.0-0.8) 10^3/u L Baso # (Auto) 0.0 (0.0-0.1) 10^3/u L Nucleated RBC % (a uto) 0 % Nucleated RBCs # 0.0 /100WBC Sodium 146 H (136-145) mmol/L Potassium 4.0 (3.5-5.1) mmol/L Chloride 110 H (98-107) mmol/L Carbon Dioxide 26 (22-29) mmol/L Anion Gap 14.0 (5-19) BUN 12 (6-20) mg/dL Creatinine 0.9 (0.5-0.9) mg/dL GFR Calculation 67.1 L (90-130) mL/min Glucose 95 (65-115) mg/dL Calculated Osmolal ity 302 H (285-295) mOsm/k g Calcium 8.4 L (8.5-10.5) mg/dL Total Bilirubin 0.2 (0.15-1.2) mg/dL AST 82 H (0-32) U/L ALT 98 H (0-33) U/L Alkaline Phosphata se 97 (35-105) IU/L Creatine Kinase 114 (26-192) U/L Total Protein 7.2 (6.6-8.7) g/dL Albumin 4.3 (3.5-5.2) g/dL Globulin 2.9 (1.3-4.6) g/dL Salicylates < 0.3 L (3-10) mg/dL Acetaminophen < 5.0 L (10-30) ug/mL Ethyl Alcohol 291 H (0-10) mg/dL EKG Data^: EKG 1: Attestation: I personally reviewed and interpreted this EKG as follows: EKG interpretation date: 09/19/20 EKG interpretation time: 22:40 Interpretation: Normal sinus rhythm heart rate [address] or T wave abnormalities QRS 88 QTC 371 Critical Care Time Critical Care Time: Critical Care Time: Yes Total Critical Care Time: 36 Attestation: This case had a high probability of a clinically significant, sudden, or life threatening deterioration of this patient's condition which required my full and direct attention, intervention and personal management. Discharge Plan Discharge Patient Disposition: Admitted As Inpatient Admit Provider: Reina Harley Clinical Impression: Drug overdose, Alcohol abuse Condition: Stable Coding Level of Care Code ED Traveling Construction Superintendent for Chg Fwd Exam Comprehensive
[2020-09-19 22:44] LABS: Basophils % 0.6 %; Eosinophils # 0.1 10^3/uL (0.0-0.8); Eosinophils % 1.4 %; Hematocrit 43.4 % (37.0-47.0); Hemoglobin 14.6 g/dL (11.5-15.3); Lymphocytes % 59.4 %; Mean Corpuscular HGB Conc 33.6 g/dL (30.0-36.0); Mean Corpuscular Hemoglobin 32.1 pg (28.0-34.0); Mean Corpuscular Volume 95.4 fL (81-99); Mean Platelet Volume 9.5 fL (7.4-10.4); Monocytes # 0.4 10^3/uL (0.2-0.9); Monocytes % 7.8 %; Neutrophils # 1.54 10^3/uL (1.8-7.7); Neutrophils % 30.6 %; Nucleated Red Blood Cells % 0 %; Platelet Count 260 10^3/cmm (130-400); Red Blood Count 4.55 10^6/uL (4.1-5.3); Red Cell Distribution Width 13.8 % (12.1-15.1)
[2020-09-19 23:07] LABS: Creatine Phosphokinase 114 U/L (26-192)
[2020-09-19 23:08] LABS: Acetaminophen < 5.0 ug/mL (10-30); Alanine Aminotransferase 98 U/L (0-33); Albumin Level 4.3 g/dL (3.5-5.2); Alcohol Level 291 mg/dL (0-10); Alkaline Phosphatase 97 IU/L (35-105); Aspartate Amino Transferase 82 U/L (0-32); Blood Urea Nitrogen 12 mg/dL (6-20); Calcium 8.4 mg/dL (8.5-10.5); Carbon Dioxide 26 mmol/L (22-29); Chloride 110 mmol/L (98-107); Globulin 2.9 g/dL (1.3-4.6); Glomerular Filtration Rate 67.1 mL/min (90-130); Glucose 95 mg/dL (65-115); Osmolality Calculated 302 mOsm/kg (285-295); Salicylate < 0.3 mg/dL (3-10); Sodium 146 mmol/L (136-145); Total Bilirubin 0.2 mg/dL (0.15-1.2); Total Protein 7.2 g/dL (6.6-8.7)
[2020-09-19] MEDS: sodium chloride 0.9% 1,000 ML 999 ML IV (23:25)
[2020-09-19] MEDS: charcoal (sorbitol) 25 gm/120 mL UDC 50 GM PO (23:30)
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
[2020-09-20] VITALS (24 sets, daily range): BP systolic 124–178; BP diastolic 65–142; PULSE 70–98; RESP 13–31; TEMP 36.8–37.1; O2SAT 92–99
[2020-09-20] MEDS: ondansetron 2 mg/ML SDV 2 mL 4 MG IVP ×2 (00:36→02:26)
--- NOTE | 2020-09-20 02:19 | PC.NURSE ---
in facility 0155 from ED via wc escorted by security, CAMILO x4, cooperative at this time, denies complaints at this time
[2020-09-20] MEDS: sodium chloride 0.9% 1,000 ML 75 ML IV (02:27)
--- NOTE | 2020-09-20 02:43 | PC.NURSE ---
patient anxious, Dr Harley gave t.o. for 1mg po xanax
--- NOTE | 2020-09-20 04:03 | PC.NURSE ---
approximately 0300 patient talking on here private phone, approximately 0312 patient became agitated stating get me my meds I brought in and I'm leaving this nurse informed patient that she is on a 96 hour hold and cannot leave at this time, patient informed this nurse I'm leaving now and you can't stop me dramatic increase in patient agitation at that time patient declined PRN anxiety medication when asked and was not comprehending need to stay in hospital for personal safety, approximately 0315 patient left room and went through ICU entrance doors, this nurse told other staff to call the Hospitalist and security then followed patient to ensure patient safety.
[2020-09-20] MEDS: LORazepam 2 mg Tablet PO (04:06)
--- NOTE | 2020-09-20 04:20 | PC.NURSE ---
patient willingly agreed to go back to ICU, patient escorted back to room by darling GUZMAN, facility security and staff nurses for saftey approximately 0400, at this time approximately 0420 patient becoming very anxious again, Dr. Harley notified and gave t.o. for 10 mg Geodon IM
--- NOTE | 2020-09-20 05:15 | PC.NURSE ---
PO Anti anxiety medication given by RN to patient with MD at bedside. Patient meds placed in pyxis, with form signed by patient stating exact medications inside bottle at time of arrival to ICU.
--- NOTE | 2020-09-20 05:16 | PC.NURSE ---
Addendum entered by Yamileth Tamayo RN 09/20/20 05:19: 20 mg geodon wasted with Corona Mc RN. Original Note: 20 mg of Geodon wasted
--- NOTE | 2020-09-20 05:17 | PC.NURSE ---
RN spoke with staff member with [facility] Health/Poison Control, and updated on patient's lab values. RN explained latest values that have been received were conducted down in ED before internal admit. New labs collected by lab this early AM. RN advised most recent results should be available later this AM.
--- NOTE | 2020-09-20 05:22 | PC.NURSE ---
This nurse took over care of patient. Patient exhibited agitation towards healthcare staff. MD came to beside, to aid in deescalation of situation. Patient demanded to speak with Tariq GUZMAN. PD came to bedside for patient requested conversation. MD gave RN orders to obtain AM labs if patient allowed, and to obtain urine, and covid sendoff. RN was able to obtain covid swab, and collected AM lab work after patient appeared to calm down. Patient now resting in bed. Ancillary staff at bedside. No further needs verbalized at this time.
[2020-09-20 05:25] LABS: HCG Qualitative Urine. Negative (Negative)
[2020-09-20 05:38] LABS: Basophils % 0.6 %; Eosinophils # 0.1 10^3/uL (0.0-0.8); Eosinophils % 1.9 %; Hematocrit 41.8 % (37.0-47.0); Hemoglobin 13.7 g/dL (11.5-15.3); Lymphocytes # 2.3 10^3/uL (0.8-4.8); Lymphocytes % 48.9 %; Mean Corpuscular HGB Conc 32.8 g/dL (30.0-36.0); Mean Corpuscular Hemoglobin 31.7 pg (28.0-34.0); Mean Corpuscular Volume 96.8 fL (81-99); Mean Platelet Volume 9.5 fL (7.4-10.4); Monocytes # 0.4 10^3/uL (0.2-0.9); Monocytes % 8.9 %; Neutrophils # 1.87 10^3/uL (1.8-7.7); Neutrophils % 39.5 %; Nucleated Red Blood Cells % 0 %; Platelet Count 235 10^3/cmm (130-400); Red Blood Count 4.32 10^6/uL (4.1-5.3); Red Cell Distribution Width 13.7 % (12.1-15.1); White Blood Count 4.7 10^3/uL (4.0-10.0)
[2020-09-20 05:48] LABS: Alanine Aminotransferase 94 U/L (0-33); Albumin Level 4.1 g/dL (3.5-5.2); Alkaline Phosphatase 93 IU/L (35-105); Anion Gap 12.6 (5-19); Aspartate Amino Transferase 86 U/L (0-32); Blood Urea Nitrogen 11 mg/dL (6-20); Calcium 8.2 mg/dL (8.5-10.5); Carbon Dioxide 25 mmol/L (22-29); Chloride 107 mmol/L (98-107); Globulin 2.8 g/dL (1.3-4.6); Glomerular Filtration Rate 76.9 mL/min (90-130); Glucose 80 mg/dL (65-115); Osmolality Calculated 290 mOsm/kg (285-295); Potassium 3.6 mmol/L (3.5-5.1); Sodium 141 mmol/L (136-145); Total Bilirubin 0.3 mg/dL (0.15-1.2); Total Protein 6.9 g/dL (6.6-8.7)
--- NOTE | 2020-09-20 06:09 | PC.NURSE ---
MD gave V/O for discontinuing IV at this time. Left arm placed IV was pulled out during escalation earlier this AM. MD gave orders to leave IV out as of now. Patient allowed RN to put SPO2 monitor on patient briefly with a resulted 98% at time of observation. Shortly after patient removed placed leads. Patient refuses all VS and assessments. PSA still at bedside. Patient resting at this time.
--- NOTE | 2020-09-20 07:35 | W.PM.BREST ---
Face to Face: Restrn/Seclusion Events leading up to initiation: Verbalizing threat to self or others, Demonstrating self-destructive behavior (cutting, hitting sims etc.) and Combative/Striking out at staff or others Evaluation of patient's immediate situation: Alert and oriented, Signs of physical distress (bleeding from IV site which she pulled out ) and Signs of psychological distress (Combative, agitated, threatening staff) Patient reaction since intervention applied: Behaviors/threats have lessened, but still present Recent labs reviewed: Yes Review of medications: Yes Patient's current medical/behavioral condition: No new concerns since last ROS Need for restraint or seclusion is: No longer present Attending notified: Attending completed assessment
--- NOTE | 2020-09-20 08:37 | PC.CHAP ---
Pastoral Care Encounter/Spiritual Assessment Type of Contact [] Declined director validation visit [] Patient/Family/Request visit [] Outpatient visit [] Follow-up visit [] Physician referral [] Code/Alert [x] Routine visit [] Staff referral [] Actively dying [] Patient sleeping [] Family support [] [] Out of room [] Palliative care [] [x] Receiving care in room [] Pre-surgical visit [] Trauma [] Long length of stay [x] ICU visit [x] Other: staff and sitter present Relational/Emotional Strength [] Patient feels connected with others/family/visitors/staff [] Distress [] Loneliness/isolation [] Abandonment Spirituality of Patient [] Person of Consuelo [] Attends Christian of their Consuelo [] Believes in Prayer [] Reads Bible or Mandaeism materials [] There are Spiritual issues to be addressed Recovery Operator Helper Interventions [x] Prayer [] Active listening [] Non-anxious presence [] Spiritual/emotional support [] Crisis/trauma care [] Spiritual counseling [] Bereavement support [] Provided bereavement packet [] Provided Bible/devotional materials [] Provided toy/stuffed animal, coloring book to patient or family member [] Provided Communion [] Anointing/[place] [] Salvation [x] Completed spiritual assessment [] Other: Impact on Illness or Injury [] Angry [] Fearful [] Anxious [] Often cries [] Exhaustion [] Unable to work [] Unable to attend lutheran [] Unable to walk/stand [] Unable to read [] Unable to drive [] Unable to eat/drink [] Unable to sleep [] Unable to be with family [] Patient intubated [] Other: Summary Time spent with patient
[2020-09-20] MEDS: multivitamin therapeutic Tablet 1 TAB PO (08:56)
[2020-09-20] MEDS: folic acid 1 mg Tablet PO (08:56)
[2020-09-20] MEDS: thiamine 100 mg Tablet PO (08:56)
--- NOTE | 2020-09-20 09:12 | PC.PHAR ---
pt states she was taking care of her own medications until yesterday states she has a pillowcase maker from [facility] named serene that sets her meds up now-called [facility] talked to jean-claude states she will have serene call to go over what medications were set up in supply planner-waiting for serene to call and verify-medications put in were what the pt verified and what ext med history shows has been filled recently
--- NOTE | 2020-09-20 12:48 | PC.NURSE ---
Pt is very compliant and pleasant with staff. Continues to have diarrhea, she states that it looks like the charcoal she drank yesterday. Steady on her feet and resting well. Sitter remains at bedside.
--- NOTE | 2020-09-20 13:35 | PC.NURSE ---
in room with pt. Denies any suicide thoughts
[2020-09-20] MEDS: CLONazepam 1 mg Tablet PO (14:49)
--- NOTE | 2020-09-20 14:50 | PC.NURSE ---
Pt is being discharged. is on his way to pick up attendant pt. States that she is not suicidal. Meds called to [facility] pharmacy.
--- NOTE | 2020-09-20 15:42 | PC.RESP ---
Smoking Cessation information sent to patient.
[2020-09-20 15:54] LABS: Coronavirus Test Green County Not Detected
--- NOTE | 2020-10-25 22:44 | PM.DCS ---
Discharge Providers Date of Admission: 09/20/20 01:55 Date of Discharge: 09/20/20 Attending Provider at Admission: Reina Harley Attending Provider at Discharge: Adi Aguiar DO Diagnoses at Discharge Discharge Diagnosis (1) Alcohol abuse: Status: Acute (2) Generalized anxiety disorder: Status: Acute (3) Hepatitis C: Status: Acute Qualifiers: Viral hepatitis chronicity: chronic Hepatic coma status: without hepatic coma Qualified Code(s): B18.2 - Chronic viral hepatitis C (4) Panic disorder: Status: Chronic (5) Suicidal overdose: Reason for Visit Reason for Visit: OVERDOSE Hospital Course Hospital Course Pt was intoxicated and explained that she exclaimed she would kill herself if her daughter didnt visit. she admited that she was seeking attention and just upset. She has a new relationship and is future oriented. She also ask a comp field case manager assisting her to get into a treatment program. Suicide precautions were discontinued and she was discharged to home with her family. Physical Exam Narrative: EXAM NARRATIVE: General. appears older than stated age. multiple tattoos. H: Reg normal heart sounds no murmur L : clear no w/r//r A: soft NT/ND nl BS E: no c/c/e Discharge Data Vitals: Last Vital Signs Temp 98.2 F 09/20/20 14:41 Pulse 78 09/20/20 14:41 Resp 18 09/20/20 14:41 BP 124/65 09/20/20 12:00 Pulse Ox 97 09/20/20 08:00 Discharge Plan Discharge Patient Disposition: Home Condition: Stable Prescriptions: New clonazepam 1 mg Tablet 1 mg PO TID Qty: 30 RF: 0 folic acid 1 mg Tablet 1 mg PO DAILY Qty: 30 RF: 0 Thera 400 mcg Tablet 1 tab PO DAILY Qty: 30 RF: 0 Continued escitalopram oxalate [Lexapro] 20 mg tablet 20 mg PO DAILY Qty: 30 RF: 2 gabapentin 800 mg tablet 800 mg PO TID Qty: 90 RF: 2 baclofen 10 mg tablet 10 mg PO TID RF: 0 docusate sodium [DOK] 100 mg capsule 100 mg PO BID PRN (Reason: Constipation) RF: 0 fenofibrate nanocrystallized 48 mg tablet 48 mg PO DAILY RF: 0 Protonix 40 mg tablet,delayed release (DR/EC) 40 mg PO DAILY 30 Days Qty: 30 RF: 2 meloxicam 15 mg Tablet 15 mg PO DAILY RF: 0 albuterol sulfate [ProAir HFA] 90 mcg/actuation Hfa Aerosol Inhaler 2 puff INHALATION Q6H PRN (Reason: Shortness Of Breath) RF: 0 hydrochlorothiazide 12.5 mg Tablet 12.5 mg PO DAILY RF: 0 aspirin 81 mg Tablet,Delayed Release (Dr/Ec) 81 mg PO PRN RF: 0 Tylenol Extra Strength 500 mg Tablet 1,000 mg PO PRN RF: 0 vitamin B complex Tablet 1 tab PO DAILY RF: 0 Vitamin B-12 1 tab PO DAILY RF: 0 mirtazapine [Remeron] 15 mg tablet 15 mg PO BEDTIME RF: 0 Epclusa 400-100 mg tablet 1 tab PO DAILY RF: 0 Discontinued clonazepam 0.5 mg tablet 0.5 mg PO DAILY Qty: 30 RF: 1 ibuprofen 200 mg Tablet 600 mg PO PRN RF: 0 Discharge Orders: Discharge Order (Routine); Ordered 09/20/20 Ordered By: Adi Aguiar Discharge Diet: Advance as tolerated Discharge Activity: Resume usual activity Patient Instructions: Alcohol Abuse, Clonazepam (By mouth), Folic Acid (By mouth), Multivitamins, Adult Formula (By mouth), Abuse of Alcohol (DC), Suicide Prevention for Adults (DC), Opioid Safety, Suicidal Ideation Discharge Attestations Time Spent in Discharge Care*: greater than 30 min Quality Metrics Clinical Quality Measures During this hospital stay, did patient experience: None Coding Level of Care Code Acute Chg FW DC note Diagnoses Alcohol abuse F10.10 Generalized anxiety disorder F41.1 Hepatitis C B18.2 Viral hepatitis chronicity: chronic Hepatic coma status: without hepatic coma Panic disorder F41.0 Suicidal overdose T50.781L
== END 2020-09-20 15:10 | disposition home or self-care (01) | DRG 918 ==
LOC: ER 23:17 → ICU 09-20 08:32
PROVIDERS: Admitting Provider Hospitalist; Emergency Provider Emergency Medicine; Visit Provider Internal Medicine
DX: T42.6X2A Poisoning by other antiepileptic and sedative-hypnotic drugs, intentional self-harm, initial encounter (principal); F10.129 Alcohol abuse with intoxication, unspecified; I10 Essential (primary) hypertension; G89.29 Other chronic pain; M54.9 Dorsalgia, unspecified; G62.9 Polyneuropathy, unspecified; B18.2 Chronic viral hepatitis C; F32.9 Major depressive disorder, single episode, unspecified; F15.11 Other stimulant abuse, in remission; K59.00 Constipation, unspecified; F41.0 Panic disorder [episodic paroxysmal anxiety]; F41.1 Generalized anxiety disorder; Z79.82 Long term (current) use of aspirin
CPT/HCPCS: 36415; 80048; 80053; 80307; 81025; 82550; 85025; 87635; 93005; 94664; 96361; 96374; 99285; J2405; J7030

== ENCOUNTER → 2020-10-16 13:24 | Outpatient (BNVA) | payer MEDICAID, SELFPAY | PROVIDERS: Visit Provider Internal Medicine | DX: B18.2 Chronic viral hepatitis C (principal) | CPT/HCPCS: 87522 ==

== ENCOUNTER 2020-11-15 18:24 | Emergency (ER) | payer MEDICAID, SELFPAY ==
[2020-11-15 19:10] VITALS: BP 89/66; PULSE 85; RESP 18; TEMP 37.1; O2SAT 96; BMI 26.6
--- NOTE | 2020-11-15 20:40 | PC.NURSE ---
Patient is brought back to ER room 13 at this time, assumed care.
[2020-11-15 20:45] VITALS: BP 95/64; PULSE 79; RESP 15; TEMP 37.1; O2SAT 98
[2020-11-15 20:54] LABS: Basophils % 0.3 %; Eosinophils # 0.1 10^3/uL (0.0-0.8); Eosinophils % 1.4 %; Hematocrit 33.8 % (37.0-47.0); Hemoglobin 10.7 g/dL (11.5-15.3); Lymphocytes # 1.4 10^3/uL (0.8-4.8); Lymphocytes % 15.7 %; Mean Corpuscular HGB Conc 31.7 g/dL (30.0-36.0); Mean Corpuscular Hemoglobin 31.1 pg (28.0-34.0); Mean Corpuscular Volume 98.3 fL (81-99); Monocytes # 0.7 10^3/uL (0.2-0.9); Neutrophils % 74.3 %; Nucleated Red Blood Cells % 0 %; Platelet Count 180 10^3/cmm (130-400); Red Blood Count 3.44 10^6/uL (4.1-5.3); Red Cell Distribution Width 12.6 % (12.1-15.1); White Blood Count 8.6 10^3/uL (4.0-10.0)
--- NOTE | 2020-11-15 20:54 | USR_ITS ---
PROCEDURE INFORMATION: Exam: US Unlisted Ultrasound Procedure Exam date and time: 11/15/2020 8:54 PM Age: 45 years old Clinical indication: Symptoms: Discharge post op back surg; Prior surgery; Surgery date: <1 month; Surgery type: Back post op jay placement; Additional info: Evaluate for abscess at operative site TECHNIQUE: Imaging protocol: Unlisted ultrasound procedure (eg, diagnostic, interventional). COMPARISON: No relevant prior studies available. FINDINGS: Procedural imaging: Subcutaneous fluid collection deep to the site of surgery measuring approximately 13.5 cm. US/US soft tissue/extremity 16107 IMPRESSION: Large subcutaneous fluid collection beneath the area of previous surgery. Finding may represent a seroma. Infection is not completely excluded.
[2020-11-15 21:13] LABS: Lactic Sepsis W/Reflex 0.7 mmol/L (0.5-2.2)
[2020-11-15 21:25] LABS: Alanine Aminotransferase 6 U/L (0-33); Albumin Level 3.9 g/dL (3.5-5.2); Alkaline Phosphatase 66 IU/L (35-105); Anion Gap 13.1 (5-19); Aspartate Amino Transferase 11 U/L (0-32); Blood Urea Nitrogen 22 mg/dL (6-20); C Reactive Protein 161.7 mg/L (0.0-4.9); Calcium 8.6 mg/dL (8.5-10.5); Carbon Dioxide 25 mmol/L (22-29); Chloride 100 mmol/L (98-107); Globulin 2.6 g/dL (1.3-4.6); Glomerular Filtration Rate 40.3 mL/min (90-130); Glucose 99 mg/dL (65-115); Osmolality Calculated 281 mOsm/kg (285-295); Potassium 4.1 mmol/L (3.5-5.1); Sodium 134 mmol/L (136-145); Total Bilirubin 0.3 mg/dL (0.15-1.2); Total Protein 6.5 g/dL (6.6-8.7)
--- NOTE | 2020-11-15 22:13 | PC.NURSE ---
In to give patient pain medication due to back pain, ultra sound tech at bedside. She reports she will be ok until the testing is over.
[2020-11-15 22:20] VITALS: BP 104/66; PULSE 82; RESP 16; TEMP 36.3; O2SAT 99
[2020-11-15 22:25] VITALS: RESP 21; O2SAT 99
[2020-11-15] MEDS: morphine 4 mg/mL SDV 1 mL IVP (22:25)
--- NOTE | 2020-11-15 22:28 | PC.NURSE ---
Dr Bagley notified of patients pain, verbal orders received, RBO. reported vital signs as well.
[2020-11-15 22:32] VITALS: BP 115/75; PULSE 74; RESP 16
[2020-11-15] MEDS: cefTRIAXone 1,000 MG in sodium chloride 0.9% (plus) 50 ML 100 MG IV (22:43)
[2020-11-15] MEDS: vancomycin 1,000 MG in sodium chloride 0.9% 250 ML 250 MG IV (23:31)
--- NOTE | 2020-11-15 23:50 | ED_ITS ---
HPI - General Adult General: Chief complaint: Skin/Abscess/Foreign Body Stated complaint: 3 wks post op/incision leaking and swollen Time Seen by Provider: 11/15/20 20:38 History of Present Illness: HPI narrative: Patient is a 45-year-old female w/ recent back surgery who presents the emergency room for evaluation of increased drainage and pain from postoperative incision site. Her surgery took place 3 weeks ago. Followed by orthopedic provider at [facility] and was told to go to the emergency room after patient noticed that she had mild drainage along a portion of the incision site. Patient says that over the last week or so she has had worsening pain. Denies any fever chills, weakness in the legs, bowel or bladder problems, saddle anesthesia. Onset:3 weeks ago Duration:3 weeks Location:home Severity:moderate Review of Systems Narrative: Constitutional: No fever, no chills. HEENT: No vision changes CV: No chest pain, no palpitations PULM: no cough, no dyspnea. GI: No abdominal pain, no N/V/D. : No dysuria MSKEL: No muscle pain SKIN: No new rashes, no lesions. NEURO: No headache, no focal weakness. HEME: No visible bruises PSYCH: Normal mood BACK: +pain, swelling and drainage PFSH ED PFSH: Medical History Abdominal pain Chronic constipation Panic disorder Unintentional weight loss Vomiting blood Surgical History History of hysterectomy Family History Denies family history of Anesthesia complication Bleeding disorder Social History Smoking and tobacco status: current every day smoker cigarettes Packs smoked per day: 0.5 Years cigarettes smoked: 25 Quit status (tobacco): considering quitting Second hand smoke exposure: Yes Alcohol intake: never Adopted: No Caregiver/support person: Yes Lives independently: Yes Household members: spouse Current gender identity: Female Physical Exam Narrative: EXAM NARRATIVE: Head: Atraumatic Eyes: PERRL, conjunctiva without injection ENT: Mucous membrane moist NECK: Supple, ROM intact LUNGS: LCTAB, no crackles/rhonchi CV: RRR ABDOMEN: Soft, nontender in all quadrants EXTREMITY: Normal ROM SKIN: No rash or erythema NEURO: Awake and alert, no focal motor deficits PSYCH: Normal mood and affect BACK: +postsurgical site with bogginess, +tenderness to palpation, and +minor dehiscence with mild thick drainage. Course Vital Signs: Vital signs: Vital Signs Temperature 97.3 F L 11/15/20 22:20 Pulse Rate 74 11/16/20 00:48 Respiratory Rate 16 11/16/20 00:48 Blood Pressure 115/75 11/16/20 00:48 Pulse Oximetry 99 11/15/20 22:25 MDM - General Adult MDM Narrative: Medical decision making narrative: 45-year-old female presenting to the emergency room for evaluation of postsurgical drainage from back surgery 3 weeks ago. Patient was told to go to the emergency room by her o rthopedic provider. On examination, patient has moderate bogginess, fluctuance and tenderness to palpation along the incisoin site. Mild drainage was expressed along one small pocket of wound opening. Workup today showed white count within normal limit. Patient is afebrile here in the emergency room. Ultrasound showed likely seroma but cannot rule out infection. I have discussed finding with patient with recommendation for transfer to [facility] for orthopedic evaluation of the lesion. However, patient declined citing concerns for cost. Patient reassures me that she will follow-up with her orthopedic provider first in the morning. Have discussed the risk of leaving his medical virus which includes possible infection/hardware invovlement, spinal injury, paralysis and possible . Patient acknowledges all these risks. I have offered patient first dose of vancomycin and ceftriaxone in the emergency room and patient agrees. I have given patient prescription for Bactrim and Keflex to go home with should she not be able to follow-up with her orthopedic provider right away. Patient agrees to take these medications daily. Patient reassures me that she will follow-up with her orthopedic doctor first in the morning. Patient: Leaving AMA Lab Data: Labs: Lab Results 11/15/20 11/15/20 11/15/20 Range/Units 20:44 20:44 20:44 WBC 8.6 (4.0-10.0) 10^3/ uL RBC 3.44 L (4.1-5.3) 10^6/u L Hgb 10.7 L (11.5-15.3) g/dL Hct 33.8 L (37.0-47.0) % MCV 98.3 (81-99) fL MCH 31.1 (28.0-34.0) pg MCHC 31.7 (30.0-36.0) g/dL RDW 12.6 (12.1-15.1) % Plt Count 180 (130-400) 10^3/c mm MPV 10.0 (7.4-10.4) fL Neut % (Auto) 74.3 % Lymph % (Auto) 15.7 % [place] % (Auto) 8.0 % Eos % (Auto) 1.4 % Baso % (Auto) 0.3 % Neut # (Auto) 6.40 (1.8-7.7) 10^3/u L Lymph # (Auto) 1.4 (0.8-4.8) 10^3/u L [place] # (Auto) 0.7 (0.2-0.9) 10^3/u L Eos # (Auto) 0.1 (0.0-0.8) 10^3/u L Baso # (Auto) 0.0 (0.0-0.1) 10^3/u L Nucleated RBC % (a uto) 0 % Nucleated RBCs # 0.0 /100WBC Sodium 134 L (136-145) mmol/L Potassium 4.1 (3.5-5.1) mmol/L Chloride 100 (98-107) mmol/L Carbon Dioxide 25 (22-29) mmol/L Anion Gap 13.1 (5-19) BUN 22 H (6-20) mg/dL Creatinine 1.4 H (0.5-0.9) mg/dL GFR Calculation 40.3 L (90-130) mL/min Glucose 99 (65-115) mg/dL Calculated Osmolal ity 281 L (285-295) mOsm/k g Lactic Acid 0.7 (0.5-2.2) mmol/L Calcium 8.6 (8.5-10.5) mg/dL Total Bilirubin 0.3 (0.15-1.2) mg/dL AST 11 (0-32) U/L ALT 6 (0-33) U/L Alkaline Phosphata se 66 (35-105) IU/L C-Reactive Protein 161.7 H (0.0-4.9) mg/L Total Protein 6.5 L (6.6-8.7) g/dL Albumin 3.9 (3.5-5.2) g/dL Globulin 2.6 (1.3-4.6) g/dL Imaging Data^: Other Imaging: Radiologist's impression: [address] [id number] ReportSigned Patient: Diya Marroquin #: [id number]: 1975Acct#:[id number]/Sex: 45 / FADM Date: 11/15/20Loc: ERRoom/Bed:Attending Dr: Ordering Provider/Ordering MD: Joel Bagley MD Date of Service: 11/15/20 Procedure(s): US soft tissue/extremity 347[address] Accession Number(s): [id number] Report Number: [id number] PROCEDURE INFORMATION: Exam: US Unlisted Ultrasound Procedure Exam date and time: 11/15/2020 8:54 PM Age: 45 years old Clinical indication: Symptoms: Discharge post op back surg; Prior surgery; Surgery date: <1 month; Surgery type: Back post op jay placement; Additional info: Evaluate for abscess at operative site TECHNIQUE: Imaging protocol: Unlisted ultrasound procedure (eg, diagnostic, interventional). COMPARISON: No relevant prior studies available. FINDINGS: Procedural imaging: Subcutaneous fluid collection deep to the site of surgery measuring approximately 13.5 cm. US/US soft tissue/extremity 69013 IMPRESSION: Large subcutaneous fluid collection beneath the area of previous surgery. Finding may represent a seroma. Infection is not completely excluded. Dictated By:Christopher Espinoza By:Christopher Espinoza Date/Time:11/15/202306DD/ 05 Discharge Plan Discharge Patient Disposition: Left Against Medical Advice Clinical Impression: Postoperative wound seroma Condition: Stable Prescriptions: New Bactrim 400-80 mg tablet 1 tab PO BID 7 Days Qty: 14 RF: 0 cephalexin 500 mg capsule 500 mg PO BID 7 Days Qty: 14 RF: 0 No Action gabapentin 800 mg tablet 800 mg PO TID Qty: 90 RF: 2 docusate sodium [DOK] 100 mg capsule 100 mg PO BID PRN (Reason: Constipation) RF: 0 fenofibrate nanocrystallized 48 mg tablet 48 mg PO DAILY RF: 0 meloxicam 15 mg Tablet 15 mg PO DAILY RF: 0 albuterol sulfate [ProAir HFA] 90 mcg/actuation Hfa Aerosol Inhaler 2 puff INHALATION Q6H PRN (Reason: Shortness Of Breath) RF: 0 hydrochlorothiazide 12.5 mg Tablet 12.5 mg PO DAILY RF: 0 sofosbuvir-velpatasvir [Epclusa] 400-100 mg tablet 1 tab PO DAILY RF: 0 clonazepam 1 mg Tablet 1 mg PO TID Qty: 30 RF: 0 escitalopram oxalate 10 mg tablet 10 mg PO DAILY RF: 0 Discharge Orders: Discharge ED (Routine); Ordered 11/16/20 Ordered By: Joel Bagley Activity Restrictions/Additional Instructions: Please come back to the emergency room if you notice any worsening pain, fever/chills, inability to move your legs or arms, or any new or concerning complaints. Follow-up with your orthopedic provider as soon as possible. Coding Level of Care Code ED Actuarial Manager for [employer]
[2020-11-16 00:48] VITALS: BP 115/75; PULSE 74; RESP 16
== END 2020-11-16 00:50 | disposition left against medical advice (07) ==
PROVIDERS: Nurse Practitioner Family; Emergency Provider Emergency Medicine
DX: L76.34 Postprocedural seroma of skin and subcutaneous tissue following other procedure (principal); Y83.8 Other surgical procedures as the cause of abnormal reaction of the patient, or of later complication, without mention of misadventure at the time of the procedure; F17.210 Nicotine dependence, cigarettes, uncomplicated; Z53.29 Procedure and treatment not carried out because of patient's decision for other reasons
CPT/HCPCS: 36415; 76882; 80053; 83605; 85025; 86140; 87040; 96365; 96367; 96375; 99284; J0696; J2270; J3370; J7050

== ENCOUNTER 2020-11-16 23:04 | Emergency (ER) | payer MEDICAID, SELFPAY ==
[2020-11-16 23:18] VITALS: BP 98/62; PULSE 79; RESP 18; TEMP 37; O2SAT 96; BMI 26.6
[2020-11-16 23:39] VITALS: BP 98/73; PULSE 79; RESP 18; O2SAT 96
[2020-11-16 23:58] VITALS: BP 95/69; PULSE 67; RESP 18; O2SAT 96
--- NOTE | 2020-11-17 00:11 | ED_ITS ---
HPI - Skin/Abscess/Foreign Bdy General: Chief complaint: Skin/Abscess/Foreign Body Stated complaint: fever, post infection Time Seen by Provider: 11/17/20 00:03 History of Present Illness: HPI narrative: 45-year-old female with a history of lower back fusion 3 weeks or so ago. She came in last night after her incision opened a bit with some yellow drainage. Today, she states she ran a low-grade fever of around 100 at home. No fever here, as she took some Tylenol. Some continued drainage today. She had an ultrasound yesterday showing likely seroma, and benign labs. She has an appointment with her spine surgeon on Sunday 11/19. She is on antibiotics currently MD complaint: rash Onset (ago): day(s) Location: back Severity: mild Quality: other Pain Consistency: other Relieving factors: none Exacerbating factors: none Context: other Associated symptoms: Reports fever(s); Deny chills, myalgias, short of breath or vomiting Treatments prior to arrival: bandages and antibiotic Review of Systems Const: Reports: fever(s); Denies: chills or body aches Card: Denies: chest pain Resp: Denies: dyspnea GI: Denies: abdominal pain or vomiting Skin/Breast: Reports: surgical incision PFSH ED PFSH: Medical History Abdominal pain Chronic constipation Panic disorder Unintentional weight loss Vomiting blood Surgical History History of hysterectomy Family History Denies family history of Anesthesia complication Bleeding disorder Social History Smoking and tobacco status: current every day smoker cigarettes Packs smoked per day: 0.5 Years cigarettes smoked: 25 Quit status (tobacco): considering quitting Second hand smoke exposure: Yes Alcohol intake: never Adopted: No Caregiver/support person: Yes Lives independently: Yes Household members: spouse Current gender identity: Female Physical Exam Const: COMMON NORMALS: no acute distress, patient oriented x3 and alert Chest: COMMONS NORMALS: normal inspection of the chest Resp: COMMON NORMALS: normal respiratory effort, No use of accessory muscles and clear to auscultation bilaterally AUSCULTATION: clear to auscultation bilaterally Cardio: COMMON NORMALS: regular rate and regular rhythm RATE: regular rate RHYTHM: regular rhythm GI: COMMON NORMALS: Normal to inspection, nondistended, normoactive bowel sounds present Back/Pelvis: OTHER: Incision of lumbar spine with minimal opening. No active drainage currently. No significant erythema or streaking. No purulent drainage. There is some fluctuance surrounding. Neuro: COMMON NORMALS: patient oriented x3 SENSORIUM/ORIENTATION: Yes alert Course Vital Signs: Vital signs: Vital Signs Temperature 98.6 F 11/16/20 23:18 Pulse Rate 77 11/17/20 02:51 Respiratory Rate 18 11/16/20 23:58 Blood Pressure 98/78 11/17/20 02:51 Pulse Oximetry 95 11/17/20 02:51 MDM - Skin/Abscess/Foreign Bdy MDM Narrative: Medical decision making narrative: Patient is not overly tender in the area. She is afebrile here. No active drainage here. No streaking, or beefy erythema to suggest significant cellulitis. Sed rate and CRP are elevated, but white blood cell count is 5.5. There is a seroma in the subcutaneous tissues and of the area of influence. There is some mild stranding in the subcutaneous fat suggestive of inflammation. There is a hematoma deeper, but no gas to suggest an abscess. For now, we will continue her antibiotics prescribed yesterday, and have her follow-up with her surgeon. A disc will be printed for their review as well. Lab Data: Labs: Lab Results 11/17/20 11/17/20 11/17/20 Range/Units 00:00 00:00 00:00 WBC 5.5 (4.0-10.0) 10^3/ uL RBC 3.22 L (4.1-5.3) 10^6/u L Hgb 10.1 L (11.5-15.3) g/dL Hct 31.0 L (37.0-47.0) % MCV 96.3 (81-99) fl MCH 31.4 (28.0-34.0) pg MCHC 32.6 (30.0-36.0) g/dL RDW 12.4 (12.1-15.1) % Plt Count 181 (130-400) 10^3/c mm MPV 10.6 H (7.4-10.4) fL Neut % (Auto) 68.6 % Lymph % (Auto) 19.8 % [place] % (Auto) 8.7 % Eos % (Auto) 2.2 % Baso % (Auto) 0.5 % Neut # (Auto) 3.78 (1.8-7.7) 10^3/u L Lymph # (Auto) 1.1 (0.8-4.8) 10^3/u L [place] # (Auto) 0.5 (0.2-0.9) 10^3/u L Eos # (Auto) 0.1 (0.0-0.8) 10^3/u L Baso # (Auto) 0.0 (0.0-0.1) 10^3/u L Nucleated RBC % (a uto) 0 % Nucleated RBCs # 0.0 /100WBC ESR 85 H (0-15) mm/hr Sodium 134 L (136-145) mmol/L Potassium 3.9 (3.5-5.1) mmol/L Chloride 101 (98-107) mmol/L Carbon Dioxide 22 (22-29) mmol/L Anion Gap 14.9 (5-19) BUN 17 (6-20) mg/dL Creatinine 1.0 H (0.5-0.9) mg/dL GFR Calculation 59.4 L (90-130) mL/min Glucose 91 (65-115) mg/dL Calculated Osmolal ity 279 L (285-295) mOsm/k g Lactate (0.5-2.2) mmol/L Calcium 8.8 (8.5-10.5) mg/dL Total Bilirubin 0.2 (0.15-1.2) mg/dL AST 10 (0-32) U/L ALT 6 (0-33) U/L Alkaline Phosphata se 65 (35-105) IU/L C-Reactive Protein 98.4 H (0.0-4.9) mg/L Total Protein 6.6 (6.6-8.7) g/dL Albumin 3.6 (3.5-5.2) g/dL Globulin 3.0 (1.3-4.6) g/dL Procalcitonin 0.07 (0-0.5) ng/mL 11/17/20 Range/Units 00:00 WBC (4.0-10.0) 10^3/ uL RBC (4.1-5.3) 10^6/u L Hgb (11.5-15.3) g/dL Hct (37.0-47.0) % MCV (81-99) fl MCH (28.0-34.0) pg MCHC (30.0-36.0) g/dL RDW (12.1-15.1) % Plt Count (130-400) 10^3/c mm MPV (7.4-10.4) fL Neut % (Auto) % Lymph % (Auto) % [place] % (Auto) % Eos % (Auto) % Baso % (Auto) % Neut # (Auto) (1.8-7.7) 10^3/u L Lymph # (Auto) (0.8-4.8) 10^3/u L [place] # (Auto) (0.2-0.9) 10^3/u L Eos # (Auto) (0.0-0.8) 10^3/u L Baso # (Auto) (0.0-0.1) 10^3/u L Nucleated RBC % (a uto) % Nucleated RBCs # /100WBC ESR (0-15) mm/hr Sodium (136-145) mmol/L Potassium (3.5-5.1) mmol/L Chloride (98-107) mmol/L Carbon Dioxide (22-29) mmol/L Anion Gap (5-19) BUN (6-20) mg/dL Creatinine (0.5-0.9) mg/dL GFR Calculation (90-130) mL/min Glucose (65-115) mg/dL Calculated Osmolal ity (285-295) mOsm/k g Lactate 1.0 (0.5-2.2) mmol/L Calcium (8.5-10.5) mg/dL Total Bilirubin (0.15-1.2) mg/dL AST (0-32) U/L ALT (0-33) U/L Alkaline Phosphata se (35-105) IU/L C-Reactive Protein (0.0-4.9) mg/L Total Protein (6.6-8.7) g/dL Albumin (3.5-5.2) g/dL Globulin (1.3-4.6) g/dL Procalcitonin (0-0.5) ng/mL Discharge Plan Discharge Patient Disposition: Home Clinical Impression: Postoperative wound seroma Condition: Stable Prescriptions: No Action gabapentin 800 mg tablet 800 mg PO TID Qty: 90 RF: 2 docusate sodium [DOK] 100 mg capsule 100 mg PO BID PRN (Reason: Constipation) RF: 0 fenofibrate nanocrystallized 48 mg tablet 48 mg PO DAILY RF: 0 meloxicam 15 mg Tablet 15 mg PO DAILY RF: 0 albuterol sulfate [ProAir HFA] 90 mcg/actuation Hfa Aerosol Inhaler 2 puff INHALATION Q6H PRN (Reason: Shortness Of Breath) RF: 0 hydrochlorothiazide 12.5 mg Tablet 12.5 mg PO DAILY RF: 0 sofosbuvir-velpatasvir [Epclusa] 400-100 mg tablet 1 tab PO DAILY RF: 0 clonazepam 1 mg Tablet 1 mg PO TID Qty: 30 RF: 0 escitalopram oxalate 10 mg tablet 10 mg PO DAILY RF: 0 Bactrim 400-80 mg tablet 1 tab PO BID 7 Days Qty: 14 RF: 0 cephalexin 500 mg capsule 500 mg PO BID 7 Days Qty: 14 RF: 0 Discharge Orders: Discharge ED (Routine); Ordered 11/17/20 Ordered By: Geovanny Cordero Patient Instructions: Surgical Site Infections (ED), Wound Dehiscence (ED) Activity Restrictions/Additional Instructions: Continue the antibiotics you were prescribed yesterday. Return for continued fever greater than 100 despite 3-4 doses of antibiotics. Keep your appointment with your surgeon on Thursday. A disc has been printed for you with images concerning the fluid collection that is draining from your incision site. Coding Level of Care Code ED Geological Engineer for [employer] Exam Detailed
--- NOTE | 2020-11-17 00:16 | PC.NURSE ---
took over care of pt at this time from elias payne
--- NOTE | 2020-11-17 00:25 | CTR_ITS ---
PROCEDURE INFORMATION: Exam: CT Lumbar Spine With Contrast Exam date and time: 11/17/2020 12:25 AM Age: 45 years old Clinical indication: Mass or lump in lumbosacral region; Low back pain; Prior surgery; Surgery date: <1 month; Surgery type: Lumbar fusion. ; Patient HX: Infection with drainage to incision site S/P lumbar fusion 3 weeks ago. ; Additional info: Recent surgery with drainage TECHNIQUE: Imaging protocol: Computed tomography images of the lumbar spine with intravenous contrast. Radiation optimization: All CT scans at this facility use at least one of these dose optimization techniques: automated exposure control; mA and/or kV adjustment per patient size (includes targeted exams where dose is matched to clinical indication); or iterative reconstruction. Contrast material: VISI 320; Contrast volume: 75 ml; Contrast route: INTRAVENOUS (IV); COMPARISON: MRI Lumbar Spine w/o [id number] 06/22/2018 1:03 PM RADIATION DOSE METRICS: Total DLP (mGy-cm): 2310.14 FINDINGS: Vertebrae: Interval appearance of the bilateral pedicle screws in L4 and L5 along with the bilateral posterior connecting rods and the spacing structure in the L4-L5 disc. Interval L4 laminectomy and appearance of small bone chips along the posterior elements from L3 through L5. Continued minimal spondylolisthesis at L4-L5. No bone destruction along the posteroinferior margin of L4. No acute fracture. Discs/Spinal canal/Neural foramina: Continued normal appearance of the T12-L1 through L2-L3 discs. Probably no interval disease of the L3-L4 disc considering artifacts through part of its area. Approximately 8 mm deep by 18 mm wide mass with central density measuring 48 HU and no gas bubbles now evident along the posteroinferior central margin of L4 on images 4-6 of series 604 just superior to obscuration of detail at this level by artifacts from the metallic structures. Continued shallow left central focal disc protrusion at L5-S1 causing no significant canal stenosis. Kidneys and ureters: One right and 2 small left renal stones. Vasculature: Atherosclerosis. No aortic aneurysm. Soft tissues: Interval appearance of the 11.4 x 2.8 x 2.8 cm posterior subcutaneous mass just to the left of midline extending from L1-L5; water density and no gas bubbles in this mass. Stranding and slight fluid elsewhere in the posterior subcutaneous fat also now evident. CT/CT lumbar spine w con [id number] IMPRESSION: 1. Interval appearance of the L4-L5 fusion structures and the L4 laminectomy. Small mass containing soft tissue density now apparent along the posteroinferior margin of L4 questionably due to a hematoma. No gas bubbles in this mass to suggest an abscess. 2. Interval appearance of the long posterior subcutaneous mass containing density suggestive of a seroma, although abscess not excluded. Stranding and slight fluid also evident in the posterior subcutaneous fat. 3. Continued shallow left central focal disc protrusion at L5-S1 causing no significant canal stenosis. 4. Nephrolithiasis now evident. Atherosclerosis also noted. Radiation Dose CTDIVOL = (mGy): DLP = 2310.14 (mGy-cm)
[2020-11-17 00:30] LABS: Basophils % 0.5 %; Eosinophils # 0.1 10^3/uL (0.0-0.8); Eosinophils % 2.2 %; Hemoglobin 10.1 g/dL (11.5-15.3); Lymphocytes # 1.1 10^3/uL (0.8-4.8); Lymphocytes % 19.8 %; Mean Corpuscular HGB Conc 32.6 g/dL (30.0-36.0); Mean Corpuscular Hemoglobin 31.4 pg (28.0-34.0); Mean Corpuscular Volume 96.3 fl (81-99); Mean Platelet Volume 10.6 fL (7.4-10.4); Monocytes # 0.5 10^3/uL (0.2-0.9); Monocytes % 8.7 %; Neutrophils # 3.78 10^3/uL (1.8-7.7); Neutrophils % 68.6 %; Nucleated Red Blood Cells % 0 %; Platelet Count 181 10^3/cmm (130-400); Red Blood Count 3.22 10^6/uL (4.1-5.3); Red Cell Distribution Width 12.4 % (12.1-15.1); White Blood Count 5.5 10^3/uL (4.0-10.0)
[2020-11-17] MEDS: iodixanol 320 mg/mL 100mL Btl IV (00:38)
[2020-11-17 00:42] LABS: Alanine Aminotransferase 6 U/L (0-33); Albumin Level 3.6 g/dL (3.5-5.2); Alkaline Phosphatase 65 IU/L (35-105); Anion Gap 14.9 (5-19); Aspartate Amino Transferase 10 U/L (0-32); Blood Urea Nitrogen 17 mg/dL (6-20); C Reactive Protein 98.4 mg/L (0.0-4.9); Calcium 8.8 mg/dL (8.5-10.5); Carbon Dioxide 22 mmol/L (22-29); Chloride 101 mmol/L (98-107); Glomerular Filtration Rate 59.4 mL/min (90-130); Glucose 91 mg/dL (65-115); Osmolality Calculated 279 mOsm/kg (285-295); Potassium 3.9 mmol/L (3.5-5.1); Sodium 134 mmol/L (136-145); Total Bilirubin 0.2 mg/dL (0.15-1.2); Total Protein 6.6 g/dL (6.6-8.7)
[2020-11-17 00:47] LABS: Procalcitonin 0.07 ng/mL (0-0.5)
[2020-11-17 01:16] LABS: Erythrocyte Sedimentation Rate 85 mm/hr (0-15)
[2020-11-17 01:33] VITALS: BP 92/64; O2SAT 96
[2020-11-17 02:51] VITALS: BP 98/78; PULSE 77; O2SAT 95
== END 2020-11-17 02:52 | disposition home or self-care (01) ==
PROVIDERS: Emergency Provider Emergency Medicine
DX: L76.34 Postprocedural seroma of skin and subcutaneous tissue following other procedure (principal); F17.210 Nicotine dependence, cigarettes, uncomplicated; Z98.1 Arthrodesis status; Y83.8 Other surgical procedures as the cause of abnormal reaction of the patient, or of later complication, without mention of misadventure at the time of the procedure
CPT/HCPCS: 72132; 80053; 83605; 84145; 85025; 85651; 86140; 87040; 99283; Q9967

== ENCOUNTER 2020-12-05 22:07 | Emergency (ER) | payer MEDICAID, SELFPAY ==
[2020-12-05 22:14] VITALS: BP 149/100; PULSE 85; RESP 18; TEMP 36.7; O2SAT 94; BMI 27.8
--- NOTE | 2020-12-05 22:51 | W.ED.SKABFB ---
HPI - Skin/Abscess/Foreign Bdy General: Chief complaint: Skin/Abscess/Foreign Body Stated complaint: Infection in Surgical procedure Time Seen by Provider: 12/05/20 22:28 Source: patient Mode of arrival: ambulatory Limitations: no limitations History of Present Illness: HPI narrative: 45-year-old female who had back surgery in October. States she has had some drainage started having some erythema around the incision today. She is concerned for infection. States she does have some pain she rates a 5 out of 10. Denies any fever. States the drainage been clear denies any purulent drainage. Denies any worsening improving factors. Associated symptoms: Deny chills, fever(s), nausea or vomiting Review of Systems Const: Denies: fever(s), chills, body aches or change in appetite Eyes: Denies: blurry vision or eye discomfort ENMT: Denies: throat pain or dental pain Card: Denies: chest pain Resp: Denies: dyspnea GI: Denies: abdominal pain, nausea, vomiting or diarrhea : Denies: dysuria Musc: Denies: neck pain or back pain Skin/Breast: Reports: erythema Neuro: Denies: headache(s) Psych: Denies: depression Arben/Lymph: Denies: easy bruising All/Imm: Denies: urticaria PFSH ED PFSH: Medical History Abdominal pain Chronic constipation Panic disorder Unintentional weight loss Vomiting blood Surgical History History of hysterectomy Family History Denies family history of Anesthesia complication Bleeding disorder Social History Smoking and tobacco status: current every day smoker cigarettes Packs smoked per day: 0.5 Years cigarettes smoked: 25 Quit status (tobacco): considering quitting Second hand smoke exposure: Yes Alcohol intake: never Adopted: No Caregiver/support person: Yes Lives independently: Yes Household members: spouse Current gender identity: Female Physical Exam Const: COMMON NORMALS: no acute distress, patient oriented x3 and healthy appearing HENMT: COMMON NORMALS: normocephalic and atraumatic HEAD & SCALP: normocephalic and atraumatic Eye: COMMON NORMALS: Equal, round and reactive pupils present and EOMs intact bilaterally PUPIL: Yes Equal, round and reactive pupils present Neck/C-Spine: COMMON NORMALS: full ROM and supple Chest: COMMONS NORMALS: normal inspection of the chest and normal palpation of entire chest wall Resp: COMMON NORMALS: normal respiratory effort, No retractions, No use of accessory muscles and clear to auscultation bilaterally AUSCULTATION: clear to auscultation bilaterally Cardio: COMMON NORMALS: regular rate, regular rhythm and No murmurs present (Cardio) RATE: regular rate RHYTHM: regular rhythm GI: COMMON NORMALS: Normal to inspection, nondistended, normoactive bowel sounds present, Soft to palpation, non-tender and no masses PALPATION: Yes Soft to palpation Back/Pelvis: OTHER: Incision to lumbar spine with slight erythema around the incision has a very small amount of clear drainage no purulent drainage Extremity: COMMON NORMALS: normal to inspection and full ROM Neuro: COMMON NORMALS: patient oriented x3, moves all extremities and no focal motor deficits Psych: COMMON NORMALS: mental status grossly normal, Normal thought process present and cooperative THOUGHT PROCESS: Normal thought process present Skin: COMMON NORMALS: no rashes or lesions noted and no wounds GENERAL SKIN EXAM: no rashes or lesions noted Course Vital Signs: Vital signs: Vital Signs Temperature 98.1 F 12/05/20 22:14 Pulse Rate 85 12/05/20 22:14 Respiratory Rate 18 12/05/20 22:14 Blood Pressure 149/100 12/05/20 22:14 Pulse Oximetry 94 12/05/20 22:14 MDM - Skin/Abscess/Foreign Bdy MDM Narrative: Medical decision making narrative: Patient presents with a slight cellulitis to low back. She has no signs of abscess formation or sepsis. We will start patient on antibiotics she is to follow-up with her spinal surgeon next week and is return if worsening. She understands agrees to plan. Discharge Plan Discharge Patient Disposition: Home Clinical Impression: Cellulitis Qualifiers: Site of cellulitis: trunk Site of cellulitis of trunk: back Qualified Code(s): L03.312 - Cellulitis of back [any part except buttock] Condition: Stable Prescriptions: New clindamycin HCl 300 mg capsule 300 mg PO Q6H 7 Days Qty: 28 RF: 0 No Action gabapentin 800 mg tablet 800 mg PO TID Qty: 90 RF: 2 docusate sodium [DOK] 100 mg capsule 100 mg PO BID PRN (Reason: Constipation) RF: 0 fenofibrate nanocrystallized 48 mg tablet 48 mg PO DAILY RF: 0 meloxicam 15 mg Tablet 15 mg PO DAILY RF: 0 albuterol sulfate [ProAir HFA] 90 mcg/actuation Hfa Aerosol Inhaler 2 puff INHALATION Q6H PRN (Reason: Shortness Of Breath) RF: 0 hydrochlorothiazide 12.5 mg Tablet 12.5 mg PO DAILY RF: 0 sofosbuvir-velpatasvir [Epclusa] 400-100 mg tablet 1 tab PO DAILY RF: 0 clonazepam 1 mg Tablet 1 mg PO TID Qty: 30 RF: 0 escitalopram oxalate 10 mg tablet 10 mg PO DAILY RF: 0 Discharge Orders: Discharge ED (Routine); Ordered 12/05/20 Ordered By: Mandy Meléndez Discharge Diet: Advance as tolerated Discharge Activity: Resume usual activity Patient Instructions: Cellulitis (ED) Coding Level of Care Code ED Wash And Greaser for Go [facility]
[2020-12-05] MEDS: clindamycin 150 mg Capsule 300 MG PO (23:15)
[2020-12-05 23:20] VITALS: BP 120/81; PULSE 81; RESP 15; O2SAT 96
== END 2020-12-05 23:15 | disposition home or self-care (01) ==
LOC: ER 22:55
PROVIDERS: Emergency Provider Emergency Medicine
DX: L03.312 Cellulitis of back [any part except buttock and flank] (principal); F17.210 Nicotine dependence, cigarettes, uncomplicated
CPT/HCPCS: 99282

== ENCOUNTER → 2021-01-10 09:55 | Outpatient (BNVA) | payer MEDICAID, SELFPAY | PROVIDERS: Visit Provider Counselor Mental Health | DX: F43.12 Post-traumatic stress disorder, chronic (principal); F41.1 Generalized anxiety disorder; F41.0 Panic disorder [episodic paroxysmal anxiety] | CPT/HCPCS: 90834 ==

== ENCOUNTER → 2021-01-23 11:01 | Outpatient (BNVA) | payer MEDICAID, SELFPAY | PROVIDERS: PCP Family Medicine; Visit Provider Counselor Mental Health | DX: F43.12 Post-traumatic stress disorder, chronic (principal); F41.1 Generalized anxiety disorder; F41.0 Panic disorder [episodic paroxysmal anxiety] | CPT/HCPCS: 90834 ==

== ENCOUNTER → 2021-02-06 10:52 | Outpatient (BNVA) | payer MEDICAID, SELFPAY | PROVIDERS: PCP Family Medicine; Visit Provider Counselor Mental Health | DX: F43.12 Post-traumatic stress disorder, chronic (principal); F41.1 Generalized anxiety disorder; F41.0 Panic disorder [episodic paroxysmal anxiety] | CPT/HCPCS: 90834 ==

== ENCOUNTER → 2021-02-22 12:54 | Outpatient (BNVA) | payer MEDICAID, SELFPAY | PROVIDERS: PCP Family Medicine; Visit Provider Counselor Mental Health | DX: F43.12 Post-traumatic stress disorder, chronic (principal); F41.1 Generalized anxiety disorder; F41.0 Panic disorder [episodic paroxysmal anxiety] | CPT/HCPCS: 90837; 90834 ==

== ENCOUNTER → 2021-04-03 14:29 | Outpatient (BNVA) | payer MEDICAID, SELFPAY | PROVIDERS: PCP Family Medicine; Visit Provider Counselor Mental Health | DX: F43.12 Post-traumatic stress disorder, chronic (principal); F41.1 Generalized anxiety disorder; F41.0 Panic disorder [episodic paroxysmal anxiety] | CPT/HCPCS: 90832 ==

== ENCOUNTER → 2021-04-08 14:53 | Outpatient (BNVA) | payer MEDICAID, SELFPAY | PROVIDERS: PCP Family Medicine; Visit Provider Counselor Mental Health | DX: F43.12 Post-traumatic stress disorder, chronic (principal); F41.1 Generalized anxiety disorder; F41.0 Panic disorder [episodic paroxysmal anxiety] | CPT/HCPCS: 90832 ==

== ENCOUNTER → 2021-06-17 10:52 | Outpatient (BNVA) | payer MEDICAID, SELFPAY | PROVIDERS: PCP Family Medicine; Referring Provider Family Medicine; Visit Provider Specialist | DX: G56.03 Carpal tunnel syndrome, bilateral upper limbs (principal); G56.23 Lesion of ulnar nerve, bilateral upper limbs; F17.210 Nicotine dependence, cigarettes, uncomplicated | CPT/HCPCS: 95910 ==

== ENCOUNTER → 2021-07-05 09:15 | Outpatient (BNVA) | payer MEDICAID, SELFPAY | PROVIDERS: PCP Family Medicine; Visit Provider Counselor Mental Health | DX: F41.1 Generalized anxiety disorder (principal); F41.0 Panic disorder [episodic paroxysmal anxiety] | CPT/HCPCS: 90791 ==

== ENCOUNTER → 2021-08-14 12:39 | Outpatient (BNVA) | payer MEDICAID, SELFPAY | PROVIDERS: PCP Family Medicine; Visit Provider Otolaryngology | DX: J34.2 Deviated nasal septum (principal); J34.89 Other specified disorders of nose and nasal sinuses; H60.92 Unspecified otitis externa, left ear; F17.210 Nicotine dependence, cigarettes, uncomplicated | CPT/HCPCS: 99204 ==

== ENCOUNTER → 2021-09-04 11:02 | Outpatient (BNVA) | payer MEDICAID, SELFPAY | PROVIDERS: PCP Family Medicine; Referring Provider Family Medicine; Visit Provider Specialist | DX: G56.03 Carpal tunnel syndrome, bilateral upper limbs (principal); G56.23 Lesion of ulnar nerve, bilateral upper limbs | CPT/HCPCS: 73110; 99204 ==

== ENCOUNTER 2021-09-12 05:55 | Day surgery (SDC) | payer MEDICAID, SELFPAY ==
[2021-09-11 09:49] VITALS: BMI 24.7
[2021-09-12] VITALS (7 sets, daily range): BP systolic 113–150; BP diastolic 73–98; PULSE 65–85; RESP 13–18; TEMP 36.2–36.3; O2SAT 93–98
--- NOTE | 2021-09-12 06:41 | W.PM.OPSUD ---
Surgery/Procedure H&P Update DATE OF PROCEDURE: September 12, 2021 DATE H&P PERFORMED: 08/14/21 H&P UPDATE INFORMATION: I have reviewed H&P completed within last 30 days, I have examined patient prior to procedure and No changes to prior documentation CHANGES TO PREVIOUS DOCUMENTATION: No changes PREOP DIAGNOSIS: Deviated nasal septum/nasal obstruction PRIMARY INDICATION FOR PROCEDURE: Deviated nasal septum with nasal obstruction PLANNED PROCEDURE: Operation Date: 09/12/21 07:35 Proposed Procedures p Septoplasty [id number]/J34.2/J34.89(Not Applicable) - Omkar Smith MD
[2021-09-12] MEDS: sodium chloride 0.9% 1,000 ML 30 ML IV (06:47)
--- NOTE | 2021-09-12 07:06 | ANES.PREANE2 ---
Pre-Anesthetic Assessment Height/Weight: Height 1.7 m Weight 71.668 kg Temp Pulse Resp BP Pulse Ox 97.4 F L 65 18 113/73 94 09/12/21 06:20 09/12/21 06:20 09/12/21 06:20 09/12/21 06:20 09/12/21 06:20 Preop Diagnosis: Deviated nasal septum/nasal obstruction Operation Date: 09/12/21 07:35 Proposed Procedures p Septoplasty [id number]/J34.2/J34.89(Not Applicable) - Omkar Smith MD Familial anesthetic complications: Patient reports hypotension after back surgery Was Beta Alen taken within 24 hours: N/A Was Clonidine taken within 24 hours: N/A Last intake: Intake Last Liquid Date 09/11/21 Last Liquid Time 21:00 Last Solid Date 09/11/21 Last Solid Time 21:00 Social Alcohol and Tobacco Methamphetamine use Exam alert, oriented x 3, clear to auscultation bilaterally and regular rate & rhythm Airway Submandibular: within normal limits Cervical ROM: within normal limits Mallampati: Class III Dentition: false History/ROS No significant complaints Pulmonary None reported CV/HEM None reported None reported Hepatic Hepatitis (C) GI None reported Metabolic None reported Musc/skel None reported Neuropsych Anxiety and Neuropathy (UE b/l) Panic disorder PTSD Anesthetic Plan ASA status: 3 Anesthesia: Anesthesia Evaluation and General Other: We discussed risk and benefits of general anesthesia including PONV, sore throat (sometimes severe), corneal abrasion, positioning and peripheral nerve injuries, life threatening allergic reaction, post operative ICU admission requiring prolonged intubation, stroke, heart attack, , and rare incidences of recall. Patient consents to proceed with general anesthesia. Risk of > 500 ml blood loss (7ml/kg in children): No Medications/Allergies Home Medications Medication Instructions Recorded Confirmed Last Taken Type docusate sodium 100 mg capsule 100 mg PO BID PRN 07/10/20 09/11/21 11/15/20 History (DOK) albuterol sulfate 90 mcg/actuation 2 puff INHALATION Q6H PRN 08/22/20 09/12/21 09/11/21 History aerosol inhaler (ProAir HFA) meloxicam 15 mg tablet 15 mg PO DAILY 08/22/20 09/11/21 11/15/20 History gabapentin 800 mg tablet 800 mg PO TID #90 tab 09/17/20 09/12/21 09/11/21 Rx clonazepam 1 mg tablet 1 mg PO TID #30 tab 09/20/20 09/12/21 09/11/21 Rx xyobgcpu-rgkjmpudd-tvleiunel 3.5 4 drp OTIC (EAR) QID 10 Days #10 ml 08/14/21 09/11/21 Unknown Rx mg-10,000 unit/mL-1 % ear drops,susp acetaminophen 300 mg-codeine 30 mg 2 tab PO Q4H PRN #40 tab 09/12/21 Unknown Rx tablet cephalexin 500 mg capsule 500 mg PO TID 10 Days #30 cap 09/12/21 Unknown Rx Allergies Allergy/AdvReac Type Severity Reaction Status Date / Time No Known Allergies Allergy Verified 09/04/21 11:41 Current Medications Generic Name Dose Route Start Last Admin Trade Name Freq PRN Reason Stop Dose Admin Sodium Chloride 1,000 mls @ 30 mls/hr 09/12/21 06:15 09/12/21 06:47 Sodium Chloride 0.9% IV 09/13/21 06:14 30 mls/hr .Q24H DEX Administration PFSH Anesthesia Medical History Abdominal pain Chronic constipation Panic disorder Psychiatric care Suicidal overdose Unintentional weight loss Vomiting blood Surgical History History of back surgery History of hysterectomy Family History Denies family history of Anesthesia complication Bleeding disorder Social History Smoking and tobacco status: current every day smoker cigarettes Packs smoked per day: 0.5 Years cigarettes smoked: 25 Quit status (tobacco): considering quitting Second hand smoke exposure: Yes Alcohol intake: never Adopted: No Caregiver/support person: Yes Lives independently: Yes Household members: spouse Current gender identity: Female Data Anesthesia Cardiac Studies: No Data to Display
[2021-09-12] MEDS: oxymetazoline 0.05% Nasal Spray 15 mL 1 SPRAY NOSTRIL-B (08:17)
[2021-09-12] MEDS: neomycin-poly-bacitracin oint 0.9 gm Pkt 1 APPLIC TOPICAL (08:17)
--- NOTE | 2021-09-12 08:46 | P.OP_ITS ---
Operative Report Date of procedure: September 12, 2021 Pre-op diagnosis: Preop Diagnosis Deviated nasal septum/nasal obstruction Post-op diagnosis: Same Post-op findings: Postoperative findings show that the septum is straight and the columellar area is significantly straighter and airway is equal bilaterally. Procedure done: Septoplasty Implants: Two septal splints and 2 Telfa packs. Specimens removed/disposition: Segments of septal cartilage removed but not sent to pathology. Pathology: No pathology Surgeon: Omkar Smith MD Anesthesia: General and Local Estimated blood loss: 20 mL Complications: No complications encountered Findings: The patient had a twisted columellar area from left to right. The patient had a significantly deviated nasal septum virtually 100% obstructing on the right side. Brief History: 46-year-old female patient with a severely deviated nasal septum. This is obstructing the right nasal passage 100%. A columellar area is twisted off to the right side significantly. Patient is being brought to the operating room at this time to undergo septoplasty to improve her airway. The procedure its risks and complications have been explained in detail. These risks include bleeding infection numbness scarring swelling bruising septal hematoma abscess or perforation change in sense of smell nasal dryness recurrent problems need for additional treatment and more serious risks such as heart attack or stroke or not surviving the surgery. With these things understood informed consent was granted and witnessed. Procedure: Description of procedure: The patient was placed on the operating table in the supine position. Adequate general endotracheal tube anesthesia was obtained. The patient was repositioned into a semirecumbent position. Ancef was given IV for prophylaxis. The patient's nose was packed with cottonoids soaked in 12- hour Afrin. Nasal hairs were trimmed with scissors. The packs were removed. The septum was infiltrated with local utilizing 8.5 mL of 2% Xylocaine with 1- 100,000 epinephrine. The patient was then prepped and draped in usual fashion. A timeout was accomplished identifying the patient date of plan procedure allergies fire risk and medications given. With all in agreement the procedure continued. The Afrin packs were once again removed from the nose. A right hemitransfixion incision was created with a 15 blade carrying it down to the septal cartilage. A mucoperichondrial periosteal flap was raised carefully on the right side. There was a 90 degree bend of the cartilage 1 cm in from the nares. There is buckling of the anteriormost portion of the quadrangular cartilage to the left side and into the columellar area deviating it. This was freed carefully with the [place] elevator. The freeing up on the left side was for about a centimeter and a half. The right side was freed from anterior to posterior. Then excess cartilage anteriorly that was flipped to the left side and the columellar area was trimmed removing approximately 3 to 4 mm of length. A wedge excision was accomplished with a 15 blade excising the 90 degree bend area. Excess cartilage inferiorly to the right side was trimmed with a half round knife. The maxillary crest was fractured back and was straight midline position with the [place] elevator. The quadrangular cartilage was disarticulated from the perpendicular plate of the ethmoid and vomer and excess cartilage that was causing the septum to deviate to the right side was removed in a piecemeal fashion with Daniela forceps. Once this was accomplished the septum now rested in a good straight midline position. [place] elevators were used to outfracture the inferior turbinates. Once that was accomplished both sides of the nose were equal and a [place] elevator passed to the nasopharynx passed equally on both sides. The right hemitransfixion incision was closed loosely with interrupted 4-0 chromic suture. A transfixion suture was placed with the anteriormost portion of the septum in the pocket that was created with scissors between the medial crura of the lower lateral cartilages. This held the anterior cartilage in place and help to narrow the deformed extra skin of the columella. Two septal splints were coated with Neosporin and applied to the nose 1 on each side. Care was taken to make sure that they were medial to the middle turbinates. Then 2 Telfa packs coated with Neosporin were cut to size and applied to the nose 1 on each side. With that accomplished the external nose was cleansed. The mouth and oropharynx were suctioned irrigated with water and then suctioned again. There was no sign of any active bleeding. A drip pad was applied to the end of the patient's nose. The drapes were removed and the patient was returned to the anesthesiologist for wake-up and extubation. She tolerated the procedure well had an estimated blood loss of 20 mL or less and arrived in recovery in stable condition.
[2021-09-12] MEDS: HYDROmorphone 1 mg/mL INJ 1 mL 0.5 MG IVP (09:00)
[2021-09-12] MEDS: acetaminophen-codeine 300-30mg Tablet 2 TAB PO ×3 (09:48→10:00)
--- NOTE | 2021-09-12 13:39 | ANE.PACU2 ---
Inpatient post-anesthesia follow up: Airway intact: Yes Vital signs: Temperature 97.2 F Pulse Rate 68 Respiratory Rate 18 Blood Pressure 141/98 Pulse Oximetry 95 Oxygen Delivery Me thod Room Air Oxygen Flow Rate Fraction of Inspir ed Oxygen Hydration adequate: Yes Nausea and vomiting: No Pain level: 3 Mental status: Baseline
== END 2021-09-12 10:06 | disposition home or self-care (01) ==
PROVIDERS: PCP Family Medicine; Visit Provider Otolaryngology
PROC: (CPT 30520; principal; 2021-09-12 07:35)
DX: J34.2 Deviated nasal septum (principal); Z86.19 Personal history of other infectious and parasitic diseases; F17.210 Nicotine dependence, cigarettes, uncomplicated; F41.9 Anxiety disorder, unspecified; F41.0 Panic disorder [episodic paroxysmal anxiety]; F43.10 Post-traumatic stress disorder, unspecified
CPT/HCPCS: 30520; J1100; J1170; J2250; J2405; J2704; J2710; J3010; J3490; J7030

== ENCOUNTER → 2021-09-18 10:30 | Outpatient (BNVA) | payer MEDICAID, SELFPAY | PROVIDERS: PCP Family Medicine; Visit Provider Otolaryngology | DX: Z48.89 Encounter for other specified surgical aftercare (principal); J34.2 Deviated nasal septum; F17.210 Nicotine dependence, cigarettes, uncomplicated | CPT/HCPCS: 99024 ==

== ENCOUNTER → 2021-09-20 11:26 | Outpatient (BNVA) | payer MEDICAID, SELFPAY | PROVIDERS: PCP Family Medicine; Visit Provider Otolaryngology | DX: Z48.89 Encounter for other specified surgical aftercare (principal); J34.2 Deviated nasal septum; J34.89 Other specified disorders of nose and nasal sinuses; F17.210 Nicotine dependence, cigarettes, uncomplicated | CPT/HCPCS: 99024 ==

== ENCOUNTER → 2021-09-27 09:38 | Outpatient (BNVA) | payer MEDICAID, SELFPAY | PROVIDERS: PCP Family Medicine; Visit Provider Counselor Mental Health | DX: F41.1 Generalized anxiety disorder (principal); F41.0 Panic disorder [episodic paroxysmal anxiety]; F43.12 Post-traumatic stress disorder, chronic | CPT/HCPCS: 90834 ==

== ENCOUNTER → 2021-11-21 08:55 | Outpatient (BNVA) | payer MEDICAID, SELFPAY | PROVIDERS: PCP Family Medicine; Referring Provider Family Medicine; Visit Provider Specialist | DX: G56.03 Carpal tunnel syndrome, bilateral upper limbs (principal) | CPT/HCPCS: 95886; 95907; 99202 ==

== ENCOUNTER → 2021-12-05 15:32 | Outpatient (BNVA) | payer MEDICAID, SELFPAY | PROVIDERS: PCP Family Medicine; Visit Provider Orthopaedic Surgery | DX: M54.50 Low back pain, unspecified (principal); Z98.1 Arthrodesis status | CPT/HCPCS: 72110; 99203; 99204 ==

== ENCOUNTER → 2022-01-28 11:20 | Outpatient (BNVA) | payer MEDICAID, SELFPAY | PROVIDERS: Visit Provider Orthopaedic Surgery | DX: M54.9 Dorsalgia, unspecified (principal) | CPT/HCPCS: 99214 ==

== ENCOUNTER 2022-02-12 14:56 | Outpatient (CLI) | payer MEDICAID, SELFPAY ==
--- NOTE | 2022-02-12 15:15 | MR_ITS ---
WS: [id number] MRI LUMBAR SPINE NONCONTRAST TECHNIQUE: Sagittal T1, T2 and STIR imaging. Axial T1 and T2 imaging. CLINICAL INFORMATION: pain COMPARISON: CT November 17, 2020 and MRI 2019 FINDINGS: Mild lumbar curve. No acute compression. Interbody fusion L4-L5 with pedicle screw fixation and inter body fusion is new from the prior prior MRI 2019 and stable since the prior CT 2020 L1-L2: Normal. L2-L3: Moderate facet arthropathy. Spinal canal and foramen are patent. L3-L4: Mild annular bulging with slight effacement of ventral thecal sac. Moderate facet arthropathy. Slight narrowing of the LEFT subarticular recess. Spinal canal and foramen are patent. L4-L5: Pedicle screw fixation with interbody fusion. Spinal canal and foramen are patent. Laminectomy defects. L5-S1: Mild disc bulging with slight impingement traversing LEFT S1 nerve root. Moderate facet arthro lauro. Mild LEFT foraminal narrowing. Visualized pelvic bony structures: Normal. Paravertebral soft tissues: Normal. MR/MR lumbar spine wo con* [id number] IMPRESSION: 1. Mild lumbar curve. No acute compression. Pedicle screw fixation L4-L5 with interbody fusion graft. Laminectomy defects. 2. Mild disc bulging L5-S1 impinges the traversing LEFT S1 nerve root in the s ubarticular recess. Mild LEFT L5-S1 foraminal narrowing. Recommend correlation for LEFT S1 and L5 nerve root symptoms. This is slightly progressed compared to the previous exams. 3. Mild annular bulging L2-L3 L3-L4 with slight effacement of ventral thecal s ac. Slight narrowing of the LEFT L3-L4 subarticular recess with encroachment on the traversing LEFT L3 nerve root slightly progressed. 4. Moderate facet arthropathy L2-L5.
== END 2022-02-12 14:57 | disposition home or self-care (01) ==
LOC: RAD 14:56
PROVIDERS: Visit Provider Orthopaedic Surgery
DX: M51.27 Other intervertebral disc displacement, lumbosacral region (principal); M51.26 Other intervertebral disc displacement, lumbar region; M47.816 Spondylosis without myelopathy or radiculopathy, lumbar region
CPT/HCPCS: 72148

== ENCOUNTER 2022-02-27 18:53 | Emergency (ER) | payer MEDICAID, SELFPAY ==
[2022-02-27 19:06] VITALS: BP 132/82; PULSE 81; RESP 16; TEMP 36.8; O2SAT 94; BMI 25.0
[2022-02-27 19:09] VITALS: BP 132/82; PULSE 81; RESP 16; TEMP 36.8; O2SAT 94
[2022-02-27 20:02] VITALS: BP 132/82; PULSE 81; RESP 16; TEMP 36.8; O2SAT 94
--- NOTE | 2022-02-27 22:08 | W.ED.WOUNDLC ---
HPI - Wound/Laceration General: Chief Complaint: Wound/Laceration Stated Complaint: Right Hand Stiches Time Seen by Provider: 02/27/22 19:00 History of Present Illness: 46 yo female patient presents to ER with lacertion to base of left thumb. Pt states she cut it on broken glass while doing dishes. Pt has good ROM and is NVI distally. bleeding is controlled. Pt states her immunization is UTD> Associated symptoms: Denies chills, fever(s), nausea, syncope or vomiting Review of Systems Const: Denies: fever(s), chills, body aches, change in appetite, change in weight, fatigue, malaise or diaphoresis Eyes: Denies: change in vision, blurry vision, blind spots, photophobia, eye discomfort, eye discharge, eye redness, floaters or seeing flashes ENMT: Denies: throat pain, uvular edema, enlarged tonsils, odynophagia, hoarseness, mouth pain, swelling of lips/tongue, oral sores, bleeding gums, dental pain, dry mouth, ear or mastoid pain, ear discharge, change in hearing, tinnitus, disequilibrium, nasal discharge, nasal congestion, post nasal drip or sinus pain Card: Denies: chest pain, palpitations, irregular heart rhythm, edema, swelling of feet/ankles, lightheadedness, syncope, pre-syncope, dyspnea on exertion, orthopnea, leg pain with exertion or acrocyanosis Resp: Denies: dyspnea, productive cough, non-productive cough, wheezing, stridor, pain on inspiration, change in phlegm color, hemoptysis or chest congestion GI: Denies: abdominal pain, nausea, vomiting, hematemesis, dysphagia, diarrhea, constipation, GI cramping, change in bowel habits or rectal pain : Denies: flank pain, difficulty voiding, dysuria, urinary frequency, urinary urgency, urinary hesitancy or hematuria Musc: Denies: neck pain, back pain, extremity pain, extremity swelling, joint pain, joint swelling, joint redness, joint warmth or deformity Skin/Breast: Reports: other (2 cm linear laceration to left thumb); Denies: rash, pruritus, erythema, sores, new lesions, changes in skin color or dry skin Neuro: Denies: headache(s), numbness in extremities, weakness in extremities, sensory changes, lack of coordination, difficulty walking, frequent falls, dizziness, vertigo, confusion, behavioral changes, Slurred speech present, difficulty communicating thoughts or seizure-like activity Psych: Denies: anxiety, depression, suicidal ideation or homicidal ideation Endo: Denies: polyuria, polydipsia, tired all the time, cold intolerance, excessive sweating, flushing, hot flashes or heat intolerance Arben/Lymph: Denies: easy bruising, easy bleeding, petechiae, purpura, enlarged lymph nodes or tender lymph nodes All/Imm: Denies: urticaria, throat swelling, tongue swelling, facial swelling, acute wheezing or itchy eyes PFSH ED PFSH: Medical History Abdominal pain Acquired deviated nasal septum Chronic constipation Panic disorder Psychiatric care Suicidal overdose Surgical History History of back surgery History of hysterectomy History of nasal septoplasty Family History Denies family history of Anesthesia complication Bleeding disorder Social History Smoking and tobacco status: current every day smoker cigarettes Packs smoked per day: 0.5 Years cigarettes smoked: 25 Quit status (tobacco): considering quitting Second hand smoke exposure: Yes Alcohol intake: never Adopted: No Caregiver/support person: Yes Lives independently: Yes Household members: spouse Current gender identity: Female Physical Exam Const: COMMON NORMALS: no acute distress, average body habitus, patient oriented x3, no limitations, healthy appearing, alert and well nourished HENMT: THROAT: no uvular edema Resp: COMMON NORMALS: normal respiratory effort Cardio: COMMON NORMALS: regular rate and regular rhythm RATE: regular rate RHYTHM: regular rhythm Extremity: NARRATIVE EXTREMITY EXAM: 2 cm linear laceration to distal portion of left 5th digit Neuro: COMMON NORMALS: patient oriented x3 SENSORIUM/ORIENTATION: Yes alert Procedures Laceration Laceration 1: Site: other (left 5th digit ) Size (cm): 2 Description: linear Local Anesthetic: lidocaine 1% Amount of anesthesia used (mL): 3 Pre-repair: wound explored and irrigated extensively Skin layer closed with: nylon Size (cm): 5-0 Number of sutures: 6 Course Vital Signs: Vital signs: Vital Signs Temperature 98.2 F 02/27/22 20:02 Pulse Rate 81 02/27/22 20:02 Respiratory Rate 16 02/27/22 20:02 Blood Pressure 132/82 02/27/22 20:02 Pulse Oximetry 94 02/27/22 20:02 Oxygen Delivery Me thod 02/27/22 19:09 MDM - Wound/Laceration Medical Decision Making Patient is well appearing non toxic and in no acute distress, 46 yo female patient presents to ER with lacertion to base of left thumb. Pt states she cut it on broken glass while doing dishes. Pt has good ROM and is NVI distally. bleeding is controlled. Pt states her immunization is UTD> please see procedure note for suture repair. pt is NVI distally and has full LEOBARDO. tendon appears intact. no FB appreciated Discharge Plan Discharge Patient Disposition: Home Clinical Impression: Laceration Condition: Stable Prescriptions: No Action gabapentin 800 mg tablet 800 mg PO TID Qty: 90 2RF docusate sodium [DOK] 100 mg capsule 100 mg PO BID PRN (Reason: Constipation) [id number] 3.5-10,000-1 mg/mL-unit/mL-% drops,suspension 4 drp otic (ear) QID 10 Days Qty: 10 1RF Rx Instructions: Apply 4 drops to left ear 4 times daily. prednisone 20 mg tablet 20 mg PO DAILY Qty: 15 0RF Rx Instructions: 60mg X3 days 40mg X2 days 20mg X 2days meloxicam 15 mg Tablet 15 mg PO DAILY albuterol sulfate [ProAir HFA] 90 mcg/actuation Hfa Aerosol Inhaler 2 puff INHALATION Q6H PRN (Reason: Shortness Of Breath) clonazepam 1 mg Tablet 1 mg PO TID Qty: 30 0RF Discharge Orders: Discharge ED (Routine); Ordered 02/27/22 Ordered By: Tamara Guan Discharge Diet: Advance as tolerated Discharge Activity: Resume usual activity Patient Instructions: Opioid Safety, Pain Management Activity Restrictions/Additional Instructions: Please keep wound clean and dry as discussed Return to ER in 8-10 days for suture remova or sooner with any concerns Coding Level of Care Code ED Quarter Doper for Go Maddox
== END 2022-02-27 20:02 | disposition home or self-care (01) ==
PROVIDERS: Emergency Provider Registered Nurse
DX: S61.012A Laceration without foreign body of left thumb without damage to nail, initial encounter (principal); F17.210 Nicotine dependence, cigarettes, uncomplicated; W25.XXXA Contact with sharp glass, initial encounter; Y93.G1 Activity, food preparation and clean up
CPT/HCPCS: 12001; 99283

== ENCOUNTER 2022-03-17 19:31 | Emergency (ER) | payer MEDICAID, SELFPAY ==
[2022-03-17 19:55] VITALS: BP 134/94; PULSE 100; RESP 20; TEMP 36.8; O2SAT 93; BMI 25.0
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
[2022-03-17 21:48] VITALS: BP 119/79; PULSE 85; RESP 15; O2SAT 94
[2022-03-17] MEDS: HYDROcodone-acetaminophen 5-325 mg Tablet 1 TAB PO (21:52)
[2022-03-17 22:00] VITALS: BP 115/77; PULSE 77; RESP 17; O2SAT 97
== END 2022-03-17 23:06 | disposition home or self-care (01) ==
PROVIDERS: Emergency Provider Emergency Medicine
DX: S22.32XA Fracture of one rib, left side, initial encounter for closed fracture (principal); Y04.2XXA Assault by strike against or bumped into by another person, initial encounter; F17.210 Nicotine dependence, cigarettes, uncomplicated
CPT/HCPCS: 71250; 74176; 99284

== ENCOUNTER → 2022-03-20 09:44 | Outpatient (BNVA) | payer MEDICAID, SELFPAY | PROVIDERS: Visit Provider Orthopaedic Surgery | DX: M48.062 Spinal stenosis, lumbar region with neurogenic claudication (principal) | CPT/HCPCS: 99213 ==

== ENCOUNTER → 2022-04-14 15:35 | Outpatient (BNVA) | payer MEDICAID, SELFPAY | PROVIDERS: Visit Provider Specialist | DX: G56.03 Carpal tunnel syndrome, bilateral upper limbs (principal) | CPT/HCPCS: 99215 ==

== ENCOUNTER 2022-04-25 09:48 | Day surgery (SDC) | payer MEDICAID, SELFPAY ==
[2022-04-24 10:35] VITALS: BMI 25.8
[2022-04-25] VITALS (8 sets, daily range): BP systolic 103–132; BP diastolic 65–85; PULSE 59–71; RESP 12–20; TEMP 36.5–36.9; O2SAT 95–98
[2022-04-25] MEDS: acetaminophen 1,000 MG/100 ML PIGGYBACK 400 MG IV (10:48)
[2022-04-25] MEDS: CELEcoxib 200 mg Capsule 400 MG PO (10:50)
--- NOTE | 2022-04-25 12:02 | P.HPUD_ITS ---
Surgery/Procedure H&P Update DATE OF PROCEDURE: April 25, 2022 DATE H&P PERFORMED: 04/14/22 H&P UPDATE INFORMATION: I have reviewed H&P completed within last 30 days, I have examined patient prior to procedure, No changes to prior documentation and H&[place] is in [facility] [place] PREOP DIAGNOSIS: Left carpal tunnel syndrome PLANNED PROCEDURE: Operation Date: 04/25/22 11:45 Proposed Procedures p LEFT CARPAL TUNNEL RELEASE [id number] ,G56.00(Left) - Mayi Blakely MD Related Problem List Diagnoses (1) Carpal tunnel syndrome, left:
[2022-04-25] MEDS: ceFAZolin 2,000 MG in sodium chloride 0.9% (plus) 50 ML 100 MG IV (12:10)
--- NOTE | 2022-04-25 12:47 | ANES.PREANE2 ---
Pre-Anesthetic Assessment Height/Weight: Height 1.7 m Weight 74.843 kg O2 Del Method 04/25/22 10:24 Preop Diagnosis: Left carpal tunnel syndrome Operation Date: 04/25/22 11:45 Proposed Procedures p LEFT CARPAL TUNNEL RELEASE [id number] ,G56.00(Left) - Mayi Blakely MD Familial anesthetic complications: none Was Beta Alen taken within 24 hours: N/A Was Clonidine taken within 24 hours: N/A Last intake: Intake Last Liquid Date 04/24/22 Last Liquid Time 00:00 Last Solid Date 04/24/22 Last Solid Time 20:00 Social Alcohol and Tobacco Exam alert, oriented x 3 and regular rate & rhythm Airway Submandibular: within normal limits Cervical ROM: within normal limits Mallampati: Class II Dentition: false Pulmonary Chronic Obstructive Pulmonary Disease Hepatic Hepatitis (C) Musc/skel Lower Back Pain Neuropsych Anxiety, Depression and Neuropathy Anesthetic Plan ASA status: 3 Anesthesia: Choice Medications/Allergies Home Medications Medication Instructions Recorded Confirmed Last Taken Type docusate sodium 100 mg capsule 100 mg PO BID PRN Constipation 07/10/20 04/25/22 04/24/22 History (DOK) albuterol sulfate 90 mcg/actuation 2 puff inhalation Q6H PRN 08/22/20 04/24/22 04/25/22 History aerosol inhaler (ProAir HFA) Shortness Of Breath meloxicam 15 mg tablet 15 mg PO DAILY 08/22/20 04/24/22 04/24/22 History gabapentin 800 mg tablet 800 mg PO TID #90 tabs 09/17/20 04/24/22 04/24/22 Rx clonazepam 1 mg tablet 1 mg PO TID #30 tabs 09/20/20 04/24/22 04/25/22 Rx Allergies Allergy/AdvReac Type Severity Reaction Status Date / Time No Known Allergies Allergy Verified 04/24/22 10:33 Current Medications Generic Name Dose Route Start Last Admin Trade Name Freq PRN Reason Stop Dose Admin Bupivacaine HCl 30 ml 04/25/22 12:46 04/25/22 12:47 Bupivacaine 0.5% Inj 30 Ml INJECTION 04/25/22 12:47 30 ml ONCE ONE Administration PFS Anesthesia Medical History Abdominal pain Acquired deviated nasal septum Chronic constipation Panic disorder Psychiatric care Suicidal overdose Surgical History History of back surgery History of hysterectomy History of nasal septoplasty Family History Denies family history of Anesthesia complication Bleeding disorder Social History Smoking and tobacco status: current every day smoker cigarettes Packs smoked per day: 0.5 Years cigarettes smoked: 25 Quit status (tobacco): considering quitting Second hand smoke exposure: Yes Alcohol intake: never Adopted: No Caregiver/support person: Yes Lives independently: Yes Household members: spouse Current gender identity: Female Data Anesthesia Cardiac Studies: No Data to Display
--- NOTE | 2022-04-25 13:15 | SUR.PHASEI ---
1308 PT TO PACU 2 PT AWAKES TO VOICE, ORAL AIRWAY OUT, GOOD RESP EFFORT NOTED ON 8L MASK IV TO RT AC #20 JELCO WITH NS 500ML UP AT KVO RATE PER GRAVITY, MONITOR SR WITH NO ECTOPY NOTED BILAT SCDS ON LT WRIST LOWER ARM SOFT DRESSING D/I WITH NO BLEEDING NOTED DISTAL FINGERS PINK WARM WITH CAP REFILL LESS THAN 3 SECONDS PT STATES NORMAL SENSATION TO TOUCH AND MOVES FINGERS OF LT HAND FREELY.
--- NOTE | 2022-04-25 13:23 | SUR.PHASEI ---
PT AWAKE ALERT ON RA TRIAL, HOB AT 40 DEGREES PT TAKING ICE CHIPS PER REQUEST PT DENTURES IN UPPER AND LOWER PER PT REQUEST.
--- NOTE | 2022-04-25 13:30 | SUR.PHASEI ---
PT AWAKE ALERT WANTS SPRITE TO SIP ON LT BECKWITH D ELEVATED ON BLANKETS X 2 PT STATES PAIN IS (LITTLE BIT) BUT WANTS TO TAKE PO PAIN MED IN OPS AND DRINK SPRITE. LT HAND DRESSING UNCHANGED DISTAL FINGERS UNCHANGED VSS.
--- NOTE | 2022-04-25 13:37 | PM.OP ---
Operative Report Date of procedure: April 25, 2022 Pre-op diagnosis: Left carpal tunnel syndrome Post-op diagnosis: Left carpal tunnel syndrome Procedure done: Left carpal tunnel release Pathology: none sent Surgeon: Mayi Blakely Director Of Patient Safety: None Anesthesia: General (Per LMA) Estimated blood loss (mL): 1 Tourniquet time (min): 23 (At 250 mmHg) IV fluids (mL): 500 Urine output (mL): 0 (No Parekh) Complications: None Findings: Purplish discoloration and compression of median nerve consistent with carpal tunnel syndrome Condition: stable Disposition: PACU (Then discharged to home after return to same-day surgery) Brief History: Diya Marroquin is an established 46 year old female patient who is here today for left carpal tunnel release. Patient rates pain at 4/10 in clinic and states pain is worse in left wrist.? Patient initially had electrodiagnostic studies performed in September 2021, but there was some confusion as there was unclear site of her left median nerve neuropathy on these initial studies.? She returned at the request of Dr. Eden for further studies. Studies were found to be consistent with carpal tunnel syndrome. Discussion was undertaken with the patient regarding surgical intervention and she wished to proceed. Therefore, questions were answered consents were signed and the patient was scheduled for the above surgery. Procedure: The patient was brought to the operating theater. The patient had a general anesthesia per LMA. The tourniquet was elevated to 250 mmHg for a total tourniquet time of 20 minutes. The patient was also given Ancef 2 g preoperatively. The arm was then prepped and draped with DuraPrep in usual fashion with the arm draped free. A surgical pause was performed. At the time, the surgical pause, we confirmed the site and side of surgery. We also confirmed the patient's identity, appropriate and timely administration of preoperative antibiotics and preoperative surgical markings. An incision was then made along the thenar crease. The incision crossed the wrist joint in a curvilinear fashion. Dissection continued through skin and soft tissues using a scalpel. The palmaris longus was identified along with the transverse carpal ligament. Each of these was released carefully to avoid injury to the median nerve. We were able to dissect gently into the carpal canal which was noted to be quite tight with significant compression across the median nerve. The nerve was visualized and was an hourglass shape. The canal was subsequently palpated to assure there was no bony encroachment upon the canal. There was a quite thickened fibrous tissue within the canal, and this was opened longitudinally as well. The canal was then palpated distally and proximally to assure that my small finger was passed easily without impingement. Finding this to be so, attention was directed to closure. The wound was irrigated with ropivacaine plain. It was then closed with 3-0 nylon in an interrupted mattress fashion. Sterile dressing was then placed consisting of Dermabond, OpSite, sterile soft roll, and an Randy wrap. The tourniquet was released after 20 minutes. There were no complications. There were no specimens. The procedure was well tolerated. Plan is the patient will be discharged home. Related Problem List Diagnoses (1) Carpal tunnel syndrome, left:
[2022-04-25] MEDS: HYDROcodone-acetaminophen 5-325 mg Tablet 1 TAB PO (13:48)
--- NOTE | 2022-04-25 14:17 | ANE.PACU2 ---
Inpatient post-anesthesia follow up: Airway intact: Yes Vital signs: Temperature 98.5 F Pulse Rate 60 Respiratory Rate 18 Blood Pressure 129/79 Pulse Oximetry 98 Oxygen Delivery Me thod Room Air Oxygen Flow Rate 8 Fraction of Inspir ed Oxygen Hydration adequate: Yes Nausea and vomiting: No Pain level: 3 Mental status: Baseline
[2022-04-25] MEDS: sodium chloride 0.9% 1,000 ML 30 ML IV (14:56)
== END 2022-04-25 14:25 | disposition home or self-care (01) ==
PROVIDERS: Visit Provider Specialist
PROC: (CPT 64721; principal; 2022-04-25 11:35)
DX: G56.02 Carpal tunnel syndrome, left upper limb (principal); J44.9 Chronic obstructive pulmonary disease, unspecified; Z86.19 Personal history of other infectious and parasitic diseases; F41.9 Anxiety disorder, unspecified; F32.A Depression, unspecified; F17.210 Nicotine dependence, cigarettes, uncomplicated
CPT/HCPCS: 64721; J0131; J0690; J1100; J2250; J2405; J2704; J3010; J3490; J7030

== ENCOUNTER → 2022-05-13 09:39 | Outpatient (BNVA) | payer MEDICAID, SELFPAY | PROVIDERS: Visit Provider Nurse Practitioner Family | DX: G56.01 Carpal tunnel syndrome, right upper limb (principal); Z98.890 Other specified postprocedural states | CPT/HCPCS: 99024; 99214 ==

== ENCOUNTER 2022-05-30 07:46 | Day surgery (SDC) | payer MEDICAID, SELFPAY ==
[2022-05-29 12:11] VITALS: BMI 26.6
[2022-05-30] VITALS (8 sets, daily range): BP systolic 100–124; BP diastolic 55–81; PULSE 61–82; RESP 14–20; TEMP 36.4–36.7; O2SAT 60–100
--- NOTE | 2022-05-30 08:30 | P.ANESASSM_ITS ---
Pre-Anesthetic Assessment Height/Weight: Height 1.7 m Weight 77.111 kg Temp Pulse Resp BP Pulse Ox O2 Del Method 97.6 F 82 16 100/76 94 05/30/22 08:13 05/30/22 08:13 05/30/22 08:13 05/30/22 08:13 05/30/22 08:13 05/30/22 08:19 Preop Diagnosis: Right carpal tunnel symdrome Operation Date: 05/30/22 09:30 Proposed Procedures p RIGHT CARPAL TUNNEL RELEASE [id number], G56.00(Right) - Mayi Blakely MD Familial anesthetic complications: None Was Beta Alen taken within 24 hours: N/A Was Clonidine taken within 24 hours: N/A Last intake: Intake Last Liquid Date 05/29/22 Last Liquid Time 23:00 Last Solid Date 05/29/22 Last Solid Time 20:00 Social Tobacco and No alcohol Exam alert, oriented x 3, clear to auscultation bilaterally and regular rate & rhythm Airway Mallampati: Class I Dentition: false Pulmonary Chronic Obstructive Pulmonary Disease Hepatic Hep C Musc/skel Lower Back Pain Neuropsych Anxiety and Depression Anesthetic Plan ASA status: 3 Anesthesia: General Risk of > 500 ml blood loss (7ml/kg in children): No Medications/Allergies Home Medications Medication Instructions Recorded Confirmed Last Taken Type docusate sodium 100 mg capsule 100 mg PO BID PRN Constipation 07/10/20 05/29/22 05/29/22 History (DOK) albuterol sulfate 90 mcg/actuation 2 puff inhalation Q6H PRN 08/22/20 05/29/22 05/30/22 06:00 History aerosol inhaler (ProAir HFA) Shortness Of Breath meloxicam 15 mg tablet 15 mg PO DAILY 08/22/20 05/29/22 05/23/22 History gabapentin 800 mg tablet 800 mg PO TID #90 tabs 09/17/20 05/29/22 05/29/22 Rx clonazepam 1 mg tablet 1 mg PO TID #30 tabs 09/20/20 05/29/22 05/29/22 20:00 Rx baclofen 10 mg tablet 10 mg PO DAILY 05/29/22 05/29/22 05/29/22 History escitalopram oxalate 10 mg tablet 20 mg PO DAILY 05/29/22 05/29/22 05/29/22 History fenofibrate nanocrystallized 48 mg 48 mg PO DAILY 05/29/22 05/29/22 05/29/22 History tablet Allergies Allergy/AdvReac Type Severity Reaction Status Date / Time No Known Allergies Allergy Verified 05/29/22 12:08 [facility] Anesthesia Medical History Abdominal pain Acquired deviated nasal septum Chronic constipation Panic disorder Psychiatric care Suicidal overdose Surgical History History of back surgery History of hysterectomy History of nasal septoplasty Family History Denies family history of Anesthesia complication Bleeding disorder Social History Smoking and tobacco status: current every day smoker cigarettes Packs smoked per day: 0.5 Years cigarettes smoked: 25 Quit status (tobacco): considering quitting Second hand smoke exposure: Yes Alcohol intake: never Adopted: No Caregiver/support person: Yes Lives independently: Yes Household members: spouse Current gender identity: Female Data Anesthesia Cardiac Studies: No Data to Display
[2022-05-30] MEDS: CELEcoxib 200 mg Capsule 400 MG PO (08:40)
[2022-05-30] MEDS: sodium chloride 0.9% 1,000 ML 30 ML IV (08:40)
[2022-05-30] MEDS: acetaminophen 1,000 MG/100 ML PIGGYBACK 400 MG IV (08:41)
--- NOTE | 2022-05-30 08:43 | P.HPUD_ITS ---
Surgery/Procedure H&P Update DATE OF PROCEDURE: May 30, 2022 DATE H&P PERFORMED: 05/13/22 H&P UPDATE INFORMATION: I have reviewed H&P completed within last 30 days, I have examined patient prior to procedure, No changes to prior documentation and H&[place] is in [facility] [place] indicated PREOP DIAGNOSIS: Right carpal tunnel symdrome PLANNED PROCEDURE: Operation Date: 05/30/22 09:30 Proposed Procedures p RIGHT CARPAL TUNNEL RELEASE 11918, G56.00(Right) - Mayi Blakely MD Related Problem List Diagnoses (1) Carpal tunnel syndrome of right wrist:
[2022-05-30] MEDS: ceFAZolin 2,000 MG in sodium chloride 0.9% (plus) 50 ML 100 MG IV (08:54)
--- NOTE | 2022-05-30 09:38 | PM.OP ---
Operative Report Date of procedure: May 30, 2022 Pre-op diagnosis: Right carpal tunnel syndrome Post-op diagnosis: Right carpal tunnel syndrome Post-op findings: Slight purplish discoloration and compression across the median nerve consistent with carpal tunnel syndrome Procedure done: Right carpal tunnel release Pathology: none sent Surgeon: Mayi Blakely Teacher Of The Hearing Impaired: None Anesthesia: General (Per LMA, ASA 3) Estimated blood loss (mL): 2 Tourniquet time (min): 13 (At 250 mmHg) IV fluids (mL): 500 Urine output (mL): 0 (No Parekh) Complications: None Condition: stable Disposition: PACU (Then transfer to same-day surgery for discharge to home) Brief History: Diya Marroquin is an established 46 year old female patient who is here today for right carpal tunnel release. The left diagnostic studies were found to be consistent with carpal tunnel syndrome.? Patient has undergone left carpal tunnel release with good result, and she is now interested in pursuing right carpal tunnel release. Preoperatively, questions were answered consents were signed and the patient was scheduled for the above surgery. Procedure: The patient was brought to the operating theater. The patient had a general anesthesia per LMA. The tourniquet was elevated to 250 mmHg for a total tourniquet time of 13 minutes. The patient was also given Ancef 2 g preoperatively. The arm was then prepped and draped with DuraPrep in usual fashion with the arm draped free. A surgical pause was performed. At the time, the surgical pause, we confirmed the site and side of surgery. We also confirmed the patient's identity, appropriate and timely administration of preoperative antibiotics and preoperative surgical markings. An incision was then made along the thenar crease. The incision crossed the wrist joint in a curvilinear fashion. Dissection continued through skin and soft tissues using a scalpel. The palmaris longus was identified along with the transverse carpal ligament. Each of these was released carefully to avoid injury to the median nerve. We were able to dissect gently into the carpal canal which was noted to be quite tight with significant compression across the median nerve. The nerve was visualized and was an hourglass shape. The canal was subsequently palpated to assure there was no bony encroachment upon the canal. There was a quite thickened fibrous tissue within the canal, and this was opened longitudinally as well. The canal was then palpated distally and proximally to assure that my small finger was passed easily without impingement. Finding this to be so, attention was directed to closure. The wound was irrigated with ropivacaine plain. It was then closed with 3-0 nylon in an interrupted mattress fashion. Sterile dressing was then placed consisting of Dermabond, OpSite, sterile soft roll, and an Randy wrap. The tourniquet was released after 13 minutes. There were no complications. There were no specimens. The procedure was well tolerated. Plan is the patient will be discharged home. Related Problem List Diagnoses (1) Carpal tunnel syndrome of right wrist:
[2022-05-30] MEDS: HYDROcodone-acetaminophen 5-325 mg Tablet 1 TAB PO (10:59)
--- NOTE | 2022-05-30 18:01 | ANE.PACU2 ---
Inpatient post-anesthesia follow up: Airway intact: Yes Vital signs: Temperature 98.1 F Pulse Rate 63 Respiratory Rate 16 Blood Pressure 124/74 Pulse Oximetry 60 Oxygen Delivery Me thod Room Air Oxygen Flow Rate 6 Fraction of Inspir ed Oxygen Hydration adequate: Yes Nausea and vomiting: No Pain level: 1 Mental status: Baseline
== END 2022-05-30 11:25 | disposition home or self-care (01) ==
PROVIDERS: Visit Provider Specialist
PROC: (CPT 64721; principal; 2022-05-30 09:20)
DX: G56.01 Carpal tunnel syndrome, right upper limb (principal); J44.9 Chronic obstructive pulmonary disease, unspecified; F17.210 Nicotine dependence, cigarettes, uncomplicated
CPT/HCPCS: 64721; J0131; J0690; J2250; J2405; J2704; J3010; J3490; J7030

== ENCOUNTER → 2022-09-02 09:55 | Outpatient (BNVA) | payer MEDICAID, SELFPAY | PROVIDERS: Visit Provider Orthopaedic Surgery | DX: M48.062 Spinal stenosis, lumbar region with neurogenic claudication (principal) | CPT/HCPCS: 99214 ==

== ENCOUNTER → 2022-09-16 10:16 | Outpatient (BNVA) | payer MEDICAID, SELFPAY | PROVIDERS: PCP Family Medicine; Visit Provider Family Medicine | DX: S06.9XAA Unspecified intracranial injury with loss of consciousness status unknown, initial encounter (principal); X58.XXXA Exposure to other specified factors, initial encounter; Z79.899 Other long term (current) drug therapy | CPT/HCPCS: 80053; 80061; 82306; 82607; 83735; 84443; 85025 ==

== ENCOUNTER 2022-09-23 09:59 | Outpatient (CLI) | payer MEDICAID, SELFPAY ==
--- NOTE | 2022-09-23 10:32 | MR_ITS ---
WS: [id number] MRI LUMBAR SPINE NONCONTRAST HISTORY: low back pain, LEFT leg pain. COMPARISON: 02/12/2022 TECHNIQUE: Sagittal and axial multisequence imaging is submitted. Posterior L4-5 fusion with decompression laminectomy. Mild curvature and scoliosis. Interbody spacer at L4-5. Degenerative reactive endplate changes at L4-5 are very similar to the prio r study. The remaining disc spaces are well preserved. No acute fracture or marrow edema. Conus terminates normally at L1-2 disc level. L1-L2: Normal. L2-L3: Mild annular disc bulging and ligamentum flavum and facet arthritis. L3-L4: Mild annular disc bulging with ligamentum flavum and facet arthritis. Mild bilateral foraminal stenosis. L4-L5: Large posterior laminectomy defect. Patulous thecal sac due to the decompression laminectomy. No stenosis. L5-S1: Mild annular disc bulging with a LEFT paracentral and proximal foraminal disc protrusion conta cting the traversing LEFT S1 nerve root and also the exiting LEFT L5 nerve root. Most contact on the L5 nerve root. Mild RIGHT foraminal stenosis due to disc bulging. Paravertebral soft tissues are negative. MR/MR lumbar spine wo con* [id number] IMPRESSION: 1. Posterior lumbar fusion at L4-5 with decompression laminectomy. 2. Mild progression of the LEFT paracentral and proximal foraminal disc protru anel at L5-S1 since the prior study. Disc protrusions have slightly progressed now contacting both the LEFT L5 and S1 nerve roots. 3. Very mild foraminal stenosis at L3-4.
--- NOTE | 2022-09-23 10:32 | MR_ITS ---
WS: [id number] MRI BRAIN WITHOUT CONTRAST HISTORY: hx of tbi, worsening memory, increased mental health concern COMPARISON: None available. TECHNIQUE: Diffusion imaging, multiplanar T1, T2 and FLAIR imaging obtained. No evidence for acute infarct or hemorrhage. Choe-white matter differentiation is normal. Increased T 1 signal within the basal ganglia and particularly the globus pallidus. No hemorrhage. No remote or acute infarcts are volume loss. Ventricles and extra-axial spaces are normal. No inferior displacement of cerebellar tonsils. The sella turcica and pituitary gland are unremarkabl e. Dural venous sinuses and [place] of [place] demonstrate no abnormality on this unenhanced studies. Paranasal sinuses: Clear. Mastoid air cells: Normal. Calvarium and scalp: Intact. MR/MR head wo con* [id number] IMPRESSION: 1. No acute infarct or ventriculomegaly. 2. Basal ganglia T1 hyperintensity. Differential includes not limited to calci um and copper deposition and hepatocellular dysfunction.
== END 2022-09-23 10:00 | disposition home or self-care (01) ==
LOC: RAD 09:59
PROVIDERS: PCP Family Medicine; Visit Provider Family Medicine
DX: M48.062 Spinal stenosis, lumbar region with neurogenic claudication (principal); S06.9XAA Unspecified intracranial injury with loss of consciousness status unknown, initial encounter; X58.XXXA Exposure to other specified factors, initial encounter; Z98.1 Arthrodesis status; M51.27 Other intervertebral disc displacement, lumbosacral region; M48.061 Spinal stenosis, lumbar region without neurogenic claudication; R90.89 Other abnormal findings on diagnostic imaging of central nervous system
CPT/HCPCS: 70551; 72148

== ENCOUNTER → 2022-10-13 12:49 | Outpatient (BNVA) | payer MEDICAID, SELFPAY | PROVIDERS: PCP Family Medicine; Visit Provider Family Medicine | DX: R90.89 Other abnormal findings on diagnostic imaging of central nervous system (principal); F41.1 Generalized anxiety disorder; F43.12 Post-traumatic stress disorder, chronic; E78.5 Hyperlipidemia, unspecified | CPT/HCPCS: 82390 ==

== ENCOUNTER → 2022-10-17 11:33 | Outpatient (BNVA) | payer MEDICAID, SELFPAY | PROVIDERS: PCP Family Medicine; Visit Provider Family Medicine | DX: R90.89 Other abnormal findings on diagnostic imaging of central nervous system (principal) | CPT/HCPCS: 82525 ==

== ENCOUNTER → 2022-10-28 14:51 | Outpatient (BNVA) | payer MEDICAID, SELFPAY | PROVIDERS: PCP Family Medicine; Visit Provider Physician Assistant | DX: Z98.1 Arthrodesis status; M51.27 Other intervertebral disc displacement, lumbosacral region | CPT/HCPCS: 99213 ==

== ENCOUNTER → 2022-12-09 09:20 | Outpatient (BNVA) | payer MEDICAID, SELFPAY | PROVIDERS: PCP Family Medicine; Visit Provider Anesthesiology Pain Medicine | DX: M48.062 Spinal stenosis, lumbar region with neurogenic claudication (principal); M51.27 Other intervertebral disc displacement, lumbosacral region; Z98.1 Arthrodesis status | CPT/HCPCS: 99204 ==

== ENCOUNTER → 2022-12-11 07:55 | Outpatient (BNVA) | payer MEDICAID, SELFPAY | PROVIDERS: PCP Family Medicine; Referring Provider Family Medicine; Visit Provider Psychiatry & Neurology Neurology | DX: Z87.820 Personal history of traumatic brain injury (principal); R41.3 Other amnesia; F17.210 Nicotine dependence, cigarettes, uncomplicated | CPT/HCPCS: 99203 ==

== ENCOUNTER → 2022-12-25 09:58 | Outpatient (BNVA) | payer MEDICAID, SELFPAY | PROVIDERS: PCP Family Medicine; Referring Provider Psychiatry & Neurology Neurology; Visit Provider Psychiatry & Neurology Neurology | DX: R41.3 Other amnesia (principal); S06.9XAA Unspecified intracranial injury with loss of consciousness status unknown, initial encounter; X58.XXXA Exposure to other specified factors, initial encounter | CPT/HCPCS: 95813 ==

== ENCOUNTER → 2022-12-31 13:26 | Outpatient (BNVA) | payer MEDICAID, SELFPAY | PROVIDERS: PCP Family Medicine; Visit Provider Anesthesiology Pain Medicine | DX: M54.16 Radiculopathy, lumbar region (principal); M48.062 Spinal stenosis, lumbar region with neurogenic claudication | CPT/HCPCS: 64483; 64484; J1100; J3490 ==

== ENCOUNTER → 2023-01-29 09:01 | Outpatient (BNVA) | payer MEDICAID, SELFPAY | PROVIDERS: PCP Family Medicine; Visit Provider Orthopaedic Surgery | DX: M48.062 Spinal stenosis, lumbar region with neurogenic claudication (principal) | CPT/HCPCS: 99214 ==

== ENCOUNTER → 2023-02-05 09:08 | Outpatient (BNVA) | payer MEDICAID, SELFPAY | PROVIDERS: PCP Family Medicine; Visit Provider Family Medicine | DX: Z01.818 Encounter for other preprocedural examination (principal) | CPT/HCPCS: 80053; 81000; 83036; 85025 ==

== ENCOUNTER → 2023-04-08 13:03 | Outpatient (BNVA) | payer MEDICAID, SELFPAY | PROVIDERS: PCP Family Medicine; Visit Provider Psychiatry & Neurology Neurology | DX: R41.3 Other amnesia (principal); Z87.820 Personal history of traumatic brain injury; M51.27 Other intervertebral disc displacement, lumbosacral region; M76.32 Iliotibial band syndrome, left leg; F17.210 Nicotine dependence, cigarettes, uncomplicated | CPT/HCPCS: 99212 ==

== ENCOUNTER 2023-04-08 14:24 | Emergency (ER) | payer MEDICAID, SELFPAY ==
[2023-04-08 14:31] VITALS: BP 117/82; PULSE 83; RESP 18; TEMP 36.6; O2SAT 95; BMI 26.7
--- NOTE | 2023-04-08 15:15 | USR_ITS ---
PROCEDURE INFORMATION: Exam: US Duplex Left Lower Extremity Veins, Limited Exam date and time: 04/08/2023 3:31 PM Age: 47 years old Clinical indication: Pain; Leg, lower; Left; Additional info: Pain swelling, leg, R/O dvt TECHNIQUE: Imaging protocol: Real-time duplex ultrasound of the left extremity with 2-D mcnulty scale, color Doppler flow and spectral waveform analysis including responses to compression and other maneuvers (when performed) with image documentation. Limited exam focused on the left lower extremity veins. COMPARISON: US pelvic complete* [id number] 08/13/2018 12:53 PM FINDINGS: Left deep veins: Unremarkable. The common femoral, femoral, proximal profunda femoral, popliteal, posterior tibial and peroneal veins are patent without thrombus. Normal compressibility, augmentation response and Doppler waveforms. Superficial veins: Unremarkable. Saphenofemoral junction is patent without thrombus. Soft tissues: Unremarkable. US/CV venous duplex [facility] [id number] IMPRESSION: No sonographic evidence of deep vein thrombosis.
--- NOTE | 2023-04-08 15:28 | W.ED.EXTPRO ---
HPI - Extremity Problem General: Chief complaint: Extremity Injury, Lower Stated complaint: sent by dr for left leg swelling Time Seen by Provider: 04/08/23 15:27 History of Present Illness: 47-year-old female was referred to the ER by her primary care provider for concerns of possible blood clot to her left leg. Patient reports for the last 3 to 4 days she has had increased swelling and tenderness in the left leg starting in her thigh. Patient appears nontoxic. Patient appears in no acute distress. No reported history of DVT is noted. Review of Systems General: Reports: 10 or more systems reviewed and unremarkable except in HPI and below Musc: Reports: extremity pain and extremity swelling PFSH ED PFSH: Medical History History of hepatitis C Hyperlipidemia Traumatic brain injury Lumbar stenosis with neurogenic claudication Suicidal overdose Post-traumatic stress disorder, chronic Methamphetamine use disorder, severe, in sustained remission, dependence Generalized anxiety disorder Panic disorder Surgical History History of bilateral carpal tunnel release History of nasal septoplasty History of back surgery History of hysterectomy Family History Mother Cancer breast Father Lung disease Psychiatric illness Grandmother Stroke CAD (coronary artery disease) Denies family history of Anesthesia complication Bleeding disorder Social History Smoking and tobacco/nicotine status: current every day tobacco/nicotine user cigarettes Packs smoked per day: 0.5 Years cigarettes smoked: 25 and e-cigarettes Quit status (tobacco/nicotine): considering quitting Second hand smoke exposure: Yes Alcohol intake: never Substance/Drug Use: former Date of last use: iv drug in 20s Adopted: No Caregiver/support person: Yes Lives independently: Yes Household members: none Marital status: Legally Number of children: 4 Number of grandchildren: 2 Current occupational status: disabled Pets and animals: Yes Pets & animals: cat(s) and dog(s) Pets & animal details: christopher (dog), carol (cat) Leisure activites: art and other Leisure activities details: gardening Current gender identity: Female Special steve needs: No Agree to transfusion: Yes Physical Exam Const: COMMON NORMALS: alert HENMT: COMMON NORMALS: normocephalic HEAD & SCALP: normocephalic Neck/C-Spine: COMMON NORMALS: full ROM Resp: COMMON NORMALS: normal respiratory effort and clear to auscultation bilaterally AUSCULTATION: clear to auscultation bilaterally Cardio: COMMON NORMALS: regular rate and regular rhythm RATE: regular rate RHYTHM: regular rhythm Back/Pelvis: COMMON NORMALS: thoracic and lumbar spine normal to inspection Extremity: LEFT LOWER EXTREMITY: Yes upper leg (Leg tenderness) Neuro: SENSORIUM/ORIENTATION: Yes alert Skin: COMMON NORMALS: turgor normal GENERAL SKIN EXAM: turgor normal Course Vital Signs: Vital signs: Vital Signs Temperature 98 F 04/08/23 14:31 Pulse Rate 83 04/08/23 14:31 Respiratory Rate 18 04/08/23 14:31 Blood Pressure 117/82 04/08/23 14:31 Pulse Oximetry 95 04/08/23 14:31 Oxygen Delivery Me thod Room Air 04/08/23 14:31 MDM - Extremity (Nontraumatic) Medical Decision Making 47-year-old female comes in today with left upper leg tenderness and reported swelling and tenderness to the whole left leg. On exam there is no significant swelling noted to the left lower leg. Patient does have some anterior medial thigh tenderness. Patient moves extremities well. Patient has no increased pain with weightbearing. Differential diagnosis includes contusion, varicose veins, DVT, muscle strain. Ultrasound of the extremity showed no sign of DVT. Reviewed exam with patient with recommendations for treatment and follow-up. Patient reported understanding. Lab Data Radiology Impressions Venous Duplex 04/08/23 15:15 IMPRESSION: No sonographic evidence of deep vein thrombosis. All radiology interpretation(s) finalized by discharge Discharge Plan Discharge Patient Disposition: Home Clinical Impression: Contusion of left leg Qualifiers: Encounter type: initial encounter Qualified Code(s): S80.12XA - Contusion of left lower leg, initial encounter Condition: Stable Prescriptions: No Action docusate sodium [DOK] 100 mg capsule 100 mg PO BID PRN (Reason: Constipation) baclofen 10 mg tablet 10 mg PO TID PRN (Reason: muscle spasm) Qty: 90 0RF meloxicam 15 mg tablet 15 mg PO DAILY Qty: 30 0RF fenofibrate nanocrystallized 48 mg tablet 48 mg PO DAILY Qty: 30 0RF escitalopram oxalate 20 mg tablet 20 mg PO DAILY Qty: 30 0RF gabapentin 800 mg tablet 800 mg PO TID Qty: 90 0RF clonazepam 0.5 mg tablet 0.5 mg PO TID PRN (Reason: anxiety) Qty: 90 0RF hydrocodone-acetaminophen 10-325 mg tablet 1 tab PO Q4H PRN (Reason: pain) 5 Days Qty: 30 0RF albuterol sulfate [ProAir HFA] 90 mcg/actuation HFA aerosol inhaler 2 puff INHALATION Q6H PRN (Reason: Shortness Of Breath) Qty: 8.5 0RF Discharge Orders: Discharge ED (Routine); Ordered 04/08/23 Ordered By: Francisco Parra Referrals: Sherry Porter MD [Primary Care Provider] - Discharge Diet: Usual diet Discharge Activity: Increase activity as tolerated Patient Instructions: Musculoskeletal Pain (ED) Activity Restrictions/Additional Instructions: Follow-up with PCP Coding Level of Care Code ED [employer] for [employer]
== END 2023-04-08 16:59 | disposition home or self-care (01) ==
PROVIDERS: Emergency Provider Nurse Practitioner Family; PCP Family Medicine
DX: S80.12XA Contusion of left lower leg, initial encounter (principal); F17.210 Nicotine dependence, cigarettes, uncomplicated; F17.290 Nicotine dependence, other tobacco product, uncomplicated; Z86.19 Personal history of other infectious and parasitic diseases; E78.5 Hyperlipidemia, unspecified; Z87.820 Personal history of traumatic brain injury; X58.XXXA Exposure to other specified factors, initial encounter
CPT/HCPCS: 93971; 99284

== ENCOUNTER 2023-04-13 19:33 | Inpatient (IN) | payer MEDICAID, SELFPAY ==
[2023-04-13] VITALS (52 sets, daily range): BP systolic 92–157; BP diastolic 59–127; PULSE 0–103; RESP 13–86; TEMP 36.1–36.7; O2SAT 90–100; BMI 26.9
--- NOTE | 2023-04-13 | XR_ITS ---
WS: [id number] XR lumbar spine 1V [id number] REASON FOR EXAM: MARINO PICS FINDINGS: Lateral view of the lumbar spine and surgery demonstrates bilateral pedicle screws L3-S1 with oblique posterior pelvic screws at S2. Interbody fusion devices at L5-S1 and L4-L5. Bilateral pedicle screws and interbody fusion device pre-existing at L3-L4. IMPRESSION: Posterior lumbar fusion extension as above.
[2023-04-13] MEDS: sodium chloride 0.9% 1,000 ML 30 ML IV (12:59)
[2023-04-13] MEDS: methadone 10 mg Tablet PO (13:02)
[2023-04-13] MEDS: scopolamine 1.5 Patch 1 PATCH TRANSDERMA (13:36)
--- NOTE | 2023-04-13 14:26 | P.ANESASSM_ITS ---
Pre-Anesthetic Assessment Height/Weight: Height 1.7 m Weight 78 kg Temp Pulse Resp BP Pulse Ox O2 Del Method 97.7 F 76 18 92/74 97 Room Air 04/13/23 12:13 04/13/23 12:13 04/13/23 12:13 04/13/23 12:13 04/13/23 12:13 04/13/23 13:31 Preop Diagnosis: Failed lumbar fusion, lumbar stenosis Operation Date: 04/13/23 13:40 Proposed Procedures p Revision L3/4,L4/5,L5/S1 Spinal Fusion PSF(Not Applicable) - Jan Gan DO s L5/S1 Posterior Lumbar Interbody Fusion PLIF(Not Applicable) - Jan Gan DO s Sacroiliac Joint Fusion SI Joint Fusion(Not Applicable) - Jan Gan DO s L3/4 Lumbar Spine Decompression(Not Applicable) - Jan Gan DO Was Beta Alen taken within 24 hours: N/A Was Clonidine taken within 24 hours: N/A Last intake: Intake Last Liquid Date 04/12/23 Last Liquid Time 23:30 Last Solid Date 04/12/23 Last Solid Time 23:30 Social Tobacco 1+ pack(s) per day smoked today Exam alert and oriented x 3 Airway Submandibular: within normal limits Cervical ROM: within normal limits Mallampati: Class II Dentition: false Comments: Comments: Full dentures History/ROS No significant history except as noted and No significant complaints Pulmonary Chronic Obstructive Pulmonary Disease Neuropsych Anxiety Anesthetic Plan ASA status: 3 Anesthesia: General Other: 2 PIVs, +- a-line, consented to blood transfusion if needed Risk of > 500 ml blood loss (7ml/kg in children): Yes, adequate IV access and fluids planned Medications/Allergies Home Medications Medication Instructions Recorded Confirmed Last Taken Type baclofen 10 mg tablet 10 mg PO TID PRN muscle spasm #90 03/05/23 04/09/23 04/08/23 Rx tabs escitalopram oxalate 20 mg tablet 20 mg PO DAILY #30 tabs 03/05/23 04/09/23 04/11/23 Rx fenofibrate nanocrystallized 48 mg 48 mg PO DAILY #30 tabs 03/05/23 04/09/23 04/08/23 Rx tablet meloxicam 15 mg tablet 15 mg PO DAILY #30 tabs 03/05/23 04/09/2324 Rx gabapentin 800 mg tablet 800 mg PO TID #90 tabs 03/24/23 04/09/23 04/13/23 Rx clonazepam 0.5 mg tablet 0.5 mg PO TID PRN anxiety #90 tabs 04/05/23 04/09/23 04/13/23 Rx albuterol sulfate 90 mcg/actuation 2 puff inhalation Q6H PRN 04/07/23 04/09/23 0 04/13/23 Rx aerosol inhaler (ProAir HFA) Shortness Of Breath #8.5 grams docusate sodium 100 mg capsule 100 mg PO BID PRN Constipation #60 04/10/23 04/13/23 04/12/23 Rx (DOK) caps hydrocodone 10 mg-acetaminophen 1 tab PO Q6H PRN pain 5 days #20 04/10/23 04/13/23 04/13/23 Rx 325 mg tablet tabs Allergies Allergy/AdvReac Type Severity Reaction Status Date / Time No Known Allergies Allergy Verified 04/09/23 12:55 Current Medications Generic Name Dose Route Start Last Admin Trade Name Freq PRN Reason Stop Dose Admin Sodium Chloride 1,000 mls @ 30 mls/hr 04/13/23 12:00 04/13/23 12:59 Sodium Chloride 0.9% IV 04/14/23 11:59 30 mls/hr .Q24H DEX Administration PFSH Anesthesia Medical History History of hepatitis C Hyperlipidemia Traumatic brain injury Lumbar stenosis with neurogenic claudication Suicidal overdose Post-traumatic stress disorder, chronic Methamphetamine use disorder, severe, in sustained remission, dependence Generalized anxiety disorder Panic disorder Surgical History History of bilateral carpal tunnel release History of nasal septoplasty History of back surgery History of hysterectomy Family History Mother Cancer breast Father Lung disease Psychiatric illness Grandmother Stroke CAD (coronary artery disease) Denies family history of Anesthesia complication Bleeding disorder Social History Smoking and tobacco/nicotine status: current every day tobacco/nicotine user cigarettes Packs smoked per day: 0.5 Years cigarettes smoked: 25 and e- cigarettes Quit status (tobacco/nicotine): considering quitting Second hand smoke exposure: Yes Alcohol intake: never Substance/Drug Use: former Date of last use: iv drug in 20s Adopted: No Caregiver/support person: Yes Lives independently: Yes Household members: none Marital status: Legally Number of children: 4 Number of grandchildren: 2 Current occupational status: disabled Pets and animals: Yes Pets & animals: cat(s) and dog(s) Pets & animal details: christopher (dog), carol (cat) Leisure activites: art and other Leisure activities details: gardening Current gender identity: Female Special steve needs: No Agree to transfusion: Yes Data Anesthesia Cardiac Studies: No Data to Display
--- NOTE | 2023-04-13 15:04 | P.HP_ITS ---
Same Day Surgery H&P Indication for Procedure/HPI DATE OF PROCEDURE: April 13, 2023 CHIEF COMPLAINT/INDICATIONFOR SURGICAL PROCEDURE: Low back and leg pain PREOP DIAGNOSIS: Failed lumbar fusion, lumbar stenosis PLANNED PROCEDURE: Operation Date: 04/13/23 13:40 Proposed Procedures p Revision L3/4,L4/5,L5/S1 Spinal Fusion PSF(Not Applicable) - Jan Starks Caron, DO s L5/S1 Posterior Lumbar Interbody Fusion PLIF(Not Applicable) - Jan Starks Caron, DO s Sacroiliac Joint Fusion SI Joint Fusion(Not Applicable) - Jan H Elvia, DO s L3/4 Lumbar Spine Decompression(Not Applicable) - Jan Starks Caron, DO Medications/Allergies* Allergies/Adverse Reactions Allergy/AdvReac Type Severity Reaction Status Date / Time No Known Allergies Allergy Verified 04/09/23 12:55 Current Medications: Generic Name Dose Route Start Last Admin Trade Name Freq PRN Reason Stop Dose Admin Sodium Chloride 1,000 mls @ 30 mls/hr 04/13/23 12:00 04/13/23 12:59 Sodium Chloride 0.9% IV 04/14/23 11:59 30 mls/hr .Q24H DEX Administration Pertinent History/Comorbid Conditions* Medical History (Updated 04/08/23 @ 16:48 by STEPHANIE Tobin) History of hepatitis C Hyperlipidemia Traumatic brain injury Lumbar stenosis with neurogenic claudication Suicidal overdose Post-traumatic stress disorder, chronic Methamphetamine use disorder, severe, in sustained remission, dependence Generalized anxiety disorder Panic disorder Surgical History (Updated 10/28/22 @ 16:59 by Samuel George PA-C) History of bilateral carpal tunnel release History of nasal septoplasty History of back surgery History of hysterectomy Family History (Updated 09/08/22 @ 13:18 by Sherry Porter MD) CAD (coronary artery disease) Grandmother Psychiatric illness Father Lung disease Father Cancer Mother breast Stroke Grandmother Denies family history of Anesthesia complication Bleeding disorder Social History Smoking and tobacco/nicotine status: current every day tobacco/nicotine user cigarettes Packs smoked per day: 0.5 Years cigarettes smoked: 25 and e- cigarettes Quit status (tobacco/nicotine): considering quitting Second hand smoke exposure: Yes Alcohol intake: never Substance/Drug Use: former Date of last use: iv drug in 20s Adopted: No Caregiver/support person: Yes Lives independently: Yes Household members: none Marital status: Legally Number of children: 4 Number of grandchildren: 2 Current occupational status: disabled Pets and animals: Yes Pets & animals: cat(s) and dog(s) Pets & animal details: christopher (dog), carol (cat) Leisure activites: art and other Leisure activities details: gardening Current gender identity: Female Special steve needs: No Agree to transfusion: Yes Pertinent Exam Findings alert and oriented x 3 Recommendations Surgery/Procedure today Coding Level of Care Code Acute Code for Chg Tan
[2023-04-13] MEDS: ceFAZolin 2,000 MG in sodium chloride 0.9% (plus) 50 ML 100 MG IV ×2 (15:22→22:27)
[2023-04-13] MEDS: heparin, porcine 1,000 unit/mL INJ 10 mL 10000 UNIT IRRIGATION (16:00)
[2023-04-13] MEDS: lidocaine-epi 2% 20 mL INJ INJECTION (16:05)
[2023-04-13] MEDS: vancomycin 1,000 MG SDV 1000 MG XX (16:05)
[2023-04-13] MEDS: thrombin 5,000 unit SDV 5000 UNIT XX (16:34)
--- NOTE | 2023-04-13 18:26 | SUR.OPER ---
UPDATED PT FAMILY 182
--- NOTE | 2023-04-13 19:35 | P.OP_ITS ---
Operative Report Date of procedure: April 13, 2023 Pre-op diagnosis: Lumbar stenosis with neurogenic claudication Failed back surgery Post-op diagnosis: same Procedure done: 1.?L5/S1 interbody fusion with posterolateral fusion 2. Cage at L5/S1 3. Posterior fusion L3-pelvis 4.? Instrumentation L3-S1 5.? Lumbopelvic instrumentation 6. open right Sacral iliac fusion 7. open left sacral iliac fusion 8. L3/4 laminectomy with partial facetectomy 9. L5/S1 laminectomy with partial facetectomy 10. use of computer navigation / stereotactic spine 11. use of autograft from same incision 12. allograft 13. Bone marrow aspirate from right iliac crest 14. Removal of deep hardware from spine Surgeon: Jan Gan DO Estimated blood loss (mL): 200 Procedure: 1.?L5/S1 interbody fusion with posterolateral fusion 2. Cage at L5/S1 3. Posterior fusion L3-pelvis 4.? Instrumentation L3-S1 5.? Lumbopelvic instrumentation 6. open right Sacral iliac fusion 7. open left sacral iliac fusion 8. L3/4 laminectomy with partial facetectomy 9. L5/S1 laminectomy with partial facetectomy 10. use of computer navigation / stereotactic spine 11. use of autograft from same incision 12. allograft 13. Bone marrow aspirate from right iliac crest 14. Removal of deep hardware from spine Patient is brought to the operative suite.? After undergoing anesthesia, the patient had neuro monitoring attached.? Patient was then placed in the prone position on the Reginaldo table.? All areas of impingement were well-padded.? Patient was then prepped and draped in the normal sterile fashion.? Skin incision was then made over the L3 to the sacrum.? Subperiosteal dissection was made out to the transverse processes of L3 bilaterally,?L4 bilaterally L5 bilaterally and sacral ala bilaterally.? The L4-5 pedicle screws were identified caps remove rods were removed and then the screws were removed. The [employer] bone marrow aspirate kit was used to aspirate bone marrow aspirate.? This was done by using the sharp probe to open up the bone.? Aspiration was performed and then the blunt probe was then used to dissect down to through the bone tunnel.? An aspirating well drawn back a millimeter approximately 20 cc of bone marrow aspirate was used.? Admixed with the allograft and autograft bone that will be used. Next tension was brought to placing the fiducial for the computer navigation.? 2 pins were placed into the right iliac crest.? The fiducial was attached.? The C- arm was brought in and information from the C arm was then linked to the computer used for placing the screws.? Next attention was brought to placing the pedicle screws.? This was done by using the gearshift probe.? The probe was used to identify the pedicle.? Then the pedicle feeler was used followed by placement of screw.? This was done at? L4 bilaterally, L5 bilaterally and S1 bilaterally. Next attension was brought to placing the iliac screws.? This was done using the sacral ala iliac technique.? The gearshift probe linked to computer navigation was then placed through the sacral ala into the sacroiliac joint into the iliac crest.? Next the pedicle feeler was used followed by the computer navigated tap.? And then the screw was passed a 80 mm screw was placed on the right side and a 80 mm screw was placed on the left side.? Both the screws were 9.5 mm in diameter. Next attension was brought to performing the open and sacral iliac fusion.? This was done by again using the gearshift probe linked to computer navigation.? F ollowed by pedicle feeler followed by placing a wire and then the drill drilled over the wire and then bone graft was packed into the sacroiliac joint and into the drill hole.? And the sacroiliac screw was then placed.? This technique was done on both the right and left side. Next attention was brought to performing the laminectomy of L3.? This was done using the high-speed bur Kerrisons and curettes.? Once the lamina was removed and then attention was brought to performing a partial facetectomy on the contralateral side.? This was done again using the high-speed bur curettes and Kerrisons.? The ligamentum flavum was taken down bilaterally from L3 to L4.? Attention was then brought to the facet on the ipsilateral side.? The facet was taken down.? The L4 nerve was decompressed as it passed around the L4 pedicle.? The laminectomy was done for purposes of decompressing the nerve as well as placement of the cage.? The L3 nerve was identified as it traversed through the L3/4 foramen.? The L4 nerve was traced around the L4 pedicles bilateral.? The scar tissue was pulled off the dura.? There was found to be in good repair. Next attention was brought to performing the laminectomy ofL5.? This was done using the high-speed bur Kerrisons and curettes.? Once the lamina was removed and then attention was brought to performing a partial facetectomy on the contralateral side.? This was done again using the high-speed bur curettes and Kerrisons.? The ligamentum flavum was taken down bilaterally from L5 to S1.? Attention was then brought to the facet on the ipsilateral side.? The facet was taken down.? The S1 nerve was decompressed as it passed around the S1 pedicle.? The laminectomy was done for purposes of decompressing the nerve as well as placement of the cage.? The L5 nerve was identified as it traversed through the L5/S1 foramen.? The thecal sac was identified and retracted.? The L5/S1 disc base was identified.? Using a knife the disc base was opened.? And then sequential renee were placed.? The first shaver was a 6 and the last shaver was a 10.? Using a pituitary and down going curette the endplates were scraped and disc material was removed from the space.? Once adequate decompression of the disc base was felt to be had.? Osteoamp sponge was packed into the anterior aspect of the disc base.? Then a size 11 cage from [employer] was placed after packing osteoamp into the cage.? While placing the cage the thecal sac and S1 nerve was protected.? C arm was used to ensure that the cages placed in the appropriate position. Attention was then brought to attaching the rods to the screws placed in the L3 bilaterally, L4 bilaterally, L5 bilaterally and S1 bilaterally.? This was then attached to the sacroiliac screw providing the lumbopelvic fixation.? Caps were torqued into position. Locking the construct in place. Wound was copiously irrigated and then attention was brought to decorticating the facets and transverse processes laterally.? Bone that was taken down from the lamina was used along with osteoamp fibers and sponges were packed into the lateral gutters along the facet joints.? This was done bilaterally. Wound was then closed in a layered fashion starting with the thoracolumbar fascia.? 0-vicryl was used the sub cutaneous tissue was closed with 2-0 vicryl and skin with 4-0 monocryl.? Glue was then used to seal the skin and a steril dressing was applied.? Patient was then placed in the supine position. The endotracheal tube was removed and patient was transferred to the PACU in stable condition.
[2023-04-13] MEDS: fentaNYL 50 mcg/mL INJ 2mL 100 MCG IVP (19:50)
[2023-04-13] MEDS: fentaNYL 50 mcg/mL INJ 2mL IVP (19:59)
[2023-04-13] MEDS: HYDROmorphone 1 mg/mL INJ 1 mL 0.5 MG IVP (20:08)
[2023-04-13] MEDS: midazolam 1 mg/mL INJ 2 mL 2 MG IVP ×2 (20:17→20:22)
[2023-04-13] MEDS: HYDROmorphone 1 mg/mL INJ 1 mL (20:31)
--- NOTE | 2023-04-13 21:00 | PC.NURSE ---
House Sup contacted by PACU requesting floor bed as quickly as possible. PACU stating that pt would not be a good candidate for a semi-private room due to pt yelling obscenities toward staff. Per [employer] REPRESENTATIVE pt made statements regarding having family come to bedside so they could bring her pain medication from home.
--- NOTE | 2023-04-13 21:00 | SUR.PHASEI ---
1934 - 2044 after 15 minutes in PACU, pt complained of pain. 50 mcg Fentanyl given per protocol. After 5 minutes dose was repeated. Pt began screaming get me more pain medication. Pt was then given 0.5 mg Dilaudid at 2030. Pt continues to scream I want my mom. I want Ashu Francis right now. They will bring me what I need. Nurse tried to explain to patient that both of those people had left to go home due to the bad weather. She stated They are to come back right now. Pt agitated and screaming. Dr Beard to bedside and ordered additional 1 mg Dilaudid. Dose given. Dr Beard then gave 2 mg Versed and patient continued to scream out I need them to bring me what I need right now . Dr Beard repeated the Versed. Pt continued to yell out loudly. Nurse attempted to explain to patient that we had given her several doses of medication and encouraged her to relax and take deep breaths. Pt screamed I dont care, I need more, its not working. Dr Beard then gave 50 ketamine. Pt continued screaming.
--- NOTE | 2023-04-13 21:14 | SUR.PHASEI ---
2049 Pt less agitated. Laying still with eyes open. VSS
[2023-04-13] MEDS: HYDROcodone-acetaminophen 10-325 mg Tablet 2 TAB PO (22:04)
--- NOTE | 2023-04-13 22:05 | SUR.PHASEI ---
2200 Pts mother, Diya, contacted and informed that she was taken to ICU as an overflow and that pain control had been an issue. Diya was appreciative of the update.
--- NOTE | 2023-04-13 22:07 | PC.NURSE ---
Addendum entered by Carmen Sharma RN 04/13/23 22:11: patient reporting to family to take her to to [place] I don't know what he did but it hurts patient turned for assessment of site no out vargas signs of issues no redness or swelling noted drain in place Original Note: patient talking on phone with family very tearful reporting to family that she hurts so bad and to call some one patient repositioned and given hydrocodone for 10/10 pain
--- NOTE | 2023-04-13 22:09 | SUR.PHASEI ---
2109 Pt turned and repositioned for comfort. Pillow placed behind back, between knees, and between ankles. 2134 Pt to be transfered to ICU as an overflow. Pt significantly less agitated at this time. 2144 Report called and pt transfered to ICU 6.
[2023-04-13] MEDS: ketorolac 30 mg/mL INJ IVP (22:29)
[2023-04-13] MEDS: CLONazepam 0.5 mg Tablet PO (22:29)
--- NOTE | 2023-04-13 22:30 | PC.NURSE ---
This RN called to update on pt status in PACU. Per AUTOMOTIVE ENGINEER, medications received in PACU are not efficient for pt and additional pain control medications would be better suited in ICU. Physician request pt to be admitted to ICU instead. Additional orders given for pain medications on arrival to ICU.
[2023-04-13] MEDS: gabapentin 400 mg Capsule 800 MG PO (22:32)
--- NOTE | 2023-04-13 22:41 | PC.NURSE ---
patient given night time meds along with torodol for breakthrough pain and continued yelling at family on the phone attempting to get them to come up here to the hospital and do something about the pain patients belongings gone through and 2 packs of cigarettes 2 lighters and a large black vape was removed and placed in pyxis along with controlled substances that was counted with this nurse and Renetta tank charger also placed in pyxis wallet purse coat cell phone and clothing given to patient
[2023-04-13] MEDS: morphine 4 mg/mL SDV 1 mL 2 MG IVP (23:08)
[2023-04-13] MEDS: oxyCODONE 20 mg ER (12 HR) Tablet PO (23:53)
[2023-04-13] MEDS: HYDROmorphone 1 mg/mL INJ 1 mL IVP (23:55)
[2023-04-14] VITALS (196 sets, daily range): BP systolic 85–138; BP diastolic 57–95; PULSE 57–124; RESP 10–29; TEMP 36.7–37.3; O2SAT 85–99
--- NOTE | 2023-04-14 00:06 | PC.NURSE ---
patient continues to complain of 10/10 pain despite medications, position changes ice provided and placed on left knee patient reports some relief of 9/10 pain call placed to Dr Gan with instructions to give Oxycotin 20mg now and alternate morphine and dilaudid until pain is under control, place nicotine 21mg transdermal patch
[2023-04-14] MEDS: nicotine 21 mg Patch 1 PATCH TRANSDERMA ×2 (00:55→08:17)
[2023-04-14] MEDS: morphine 4 mg/mL SDV 1 mL 2 MG IVP ×4 (01:16→13:46)
--- NOTE | 2023-04-14 01:25 | PC.NURSE ---
patient requesting more pain medications at this time reporting 8/10 pain in left leg and back patient is in a better mood friend at bedside
[2023-04-14] MEDS: HYDROmorphone 1 mg/mL INJ 1 mL IVP ×2 (03:07→07:37)
[2023-04-14] MEDS: ceFAZolin 2,000 MG in sodium chloride 0.9% (plus) 50 ML 100 MG IV ×2 (04:56→12:03)
[2023-04-14] MEDS: HYDROcodone-acetaminophen 10-325 mg Tablet 2 TAB PO ×2 (06:34→11:55)
[2023-04-14] MEDS: oxyCODONE 10 mg ER (12 HR) Tablet PO ×2 (08:15→17:09)
[2023-04-14] MEDS: gabapentin 400 mg Capsule 800 MG PO ×2 (08:16→15:37)
[2023-04-14] MEDS: fenofibrate 48 mg Tablet PO (08:16)
[2023-04-14] MEDS: docusate sodium 100 mg Capsule PO ×2 (08:17→17:10)
[2023-04-14] MEDS: escitalopram 10 mg Tablet 20 MG PO (08:17)
--- NOTE | 2023-04-14 08:17 | PM.DCS ---
Discharge Providers Date of Admission: 04/13/23 19:33 Date of Discharge: April 14, 2023 Attending Provider at Admission: Jan Gan DO Attending Provider at Discharge: Jan Gan DO Primary Care Provider: Sherry Porter MD Reason for Visit Reason for Visit: M48.062 Physical Exam Narrative: Patient's pain is well-controlled she is got some pain shooting down her leg has no back pain. This point plan is to get up with therapy if she does well we will plan on discharging her today. Urinary Catheter Management: Parekh: Cath Placed During This Visit: yes Reason for Continuing Indwelling Catheter: Perioperative Use in Selected Surgeries Urinary Catheter Date of Insertion: 04/13/23 Urinary Catheter Time of Insertion: 15:50 Discharge Data Studies Completed and Pending Completed Studies During Hospitalization Category Date Time Status XR lumbar spine 1V [id number] Routine Exams 04/13/23 Completed Laboratory Results Blood Type A Positive 04/13/23 13:00 Rho(D) Type Rh positive 04/13/23 13:00 Antibody Screen Negative 04/13/23 13:00 Vitals Last Vital Signs Temp 99.1 F 04/14/23 06:40 Pulse 83 04/14/23 06:00 Resp 18 04/14/23 07:37 BP 115/77 04/14/23 06:00 Pulse Ox 95 04/14/23 07:37 O2 Del Method Room Air 04/14/23 06:00 O2 Flow Rate 2 04/13/23 21:40 Discharge Plan Discharge Patient Disposition: Home Condition: Stable Prescriptions: New oxycodone 10 mg tablet 10 mg PO Q4H PRN (Reason: pain) 7 Days Qty: 40 0RF OxyContin 10 mg tablet,oral only,ext.rel.12 hr 10 mg PO Q12H 7 Days Qty: 14 0RF Continued baclofen 10 mg tablet 10 mg PO TID PRN (Reason: muscle spasm) Qty: 90 0RF fenofibrate nanocrystallized 48 mg tablet 48 mg PO DAILY Qty: 30 0RF escitalopram oxalate 20 mg tablet 20 mg PO DAILY Qty: 30 0RF gabapentin 800 mg tablet 800 mg PO TID Qty: 90 0RF clonazepam 0.5 mg tablet 0.5 mg PO TID PRN (Reason: anxiety) Qty: 90 0RF albuterol sulfate [ProAir HFA] 90 mcg/actuation HFA aerosol inhaler 2 puff INHALATION Q6H PRN (Reason: Shortness Of Breath) Qty: 8.5 0RF docusate sodium [DOK] 100 mg capsule 100 mg PO BID PRN (Reason: Constipation) Qty: 60 0RF Discontinued hydrocodone-acetaminophen 10-325 mg tablet 1 tab PO Q6H PRN (Reason: pain) 5 Days Qty: 20 0RF No Action meloxicam 15 mg tablet 15 mg PO DAILY Qty: 30 0RF Discharge Orders: Discharge Order (Routine); Ordered 04/14/23 Ordered By: Jan Gan Discharge Diet: Advance as tolerated Discharge Activity: Limit activity as instructed Patient Instructions: Opioid Safety Activity Restrictions/Additional Instructions: Thank you for [facility] for your care! The following is a list of instructions, from your provider, to follow upon your discharge to ensure you have the optimal recovery from your recent injury orsurgery. Follow-up care is a boss part of your treatment and safety. Be sure to make and go to all appointments, and call your doctor if you are having problems. If you do not already have a follow-up appointment made, call Dr. Gan office in the next 1-3 days to make follow up appointment for 1 weeks at [phone]. It is also a good idea to know your test results and keep a list of the medicines you take. Medications will be prescribed for you at your provider's discretion. These medications are to be used as instructed; if they are taken more often that prescribed they will not be refilled early and in most cases will not be refilled at all. > When a refill is needed,you should contact norman patel 2-3 business days before your prescription runs out. Medications will NOT be refilled by pet supplies salesperson providers after hours! > Many pain medications contain Tylenol (Acetaminophen). Do not consume more than 4,000 mg of Tylenol per day in total with any combination ofmedications. > Pain medications can cause constipation. Please use an over the counter stool softener as directed, while taking pain medications. Consulty our local pharmacist with questions or recommendations on stool softeners. If constipation persists, contact our office or your primary care provider. > While under our care,you are not to receive pain medications or other controlled substances from any other provider unless our office is notified and approves. Any attempts to do so will result in refusal to prescribe any further pain medications and possible dismissal from our practice. ? Your wound and/or dressing should remain clean and dry for 7 days after surgery. ? Showering is permitted, however we ask that you do not take a bath, sit in a whirlpool / Jacuzzi, or go swimming for 1 month. For only the first 2 days after surgery, lt wilt be necessary for you to cover your wound/dressing with plastic and tape to keep it dry. ? Walking is essential for the healing process after surgery. We would like you to slowly advance your walking. This should be done on relatively flat clear ground (inside or out) or can be done on a treadmill. Remember this goal does not have to happen all at once, slowly increase your distance and duration. This can be broken into more more than one walk per day as tolerated. Patients who walk as directed after surgery rarely require Physical Therapy. In the unlikely event this issue arises your provider will direct hospital staff to make the appropriate arrangements. ? No lifting over 5 pounds {a gallon of milk) or bending/twisting until further notice. Each of these activities places an unnecessary amount of stress onto the body and can impede the delicate healing process. > Instead of bending at the waist, keep your back straight and bend at the knees. > Instead of twisting your torso, keep your back straight and turn your entire body with your feet. ? You may sleep in any position which makes you comfortable. Many patients find comfort sleeping in a reclining chair. It is not abnormal to have difficulty sleeping for the first several weeks following your surgery. We recommend trying Benadry! or Tylenol PM as directed to help with your sleeping difficulties. Both medications are over the counter and available withoutprescription. ? NO SMOKING!!! Smoking dramatically increases the probability of developing postoperative wound infections. ? Common complaints after lumbar and/or thoracic spine surgery include, but are not limited to: numbness and/or tingling in the legs, pain around the incision and surrounding tissues, muscle spasms, or stiffness of the middle to low back. Contact our office if these symptoms persist or if an acute change occurs. ? No driving for the first 3-5days, and not while taking narcotics until seen at your follow-up appointment and cleared. There are no restrictions for riding on short trips, however if you take a longer trip, arrangements should be made to make regular stops to get out of the vehicle and stretch . ? Swelling is an unfortunate event that will take place with any surgery and is the primary source of your postoperative discomfort. While walking and regular approved activities helps control inflammation, there are additional steps you can take to minimizeswelling. > Place ice over the surgical site and surrounding tissue for twenty minutes, followed by applying a low/medium heat (heating pad) for an additional twenty minutes every 1-2 hours as needed for painrelief. > You may use of over the counter anti-inflammatory medications (Ibuprofen, Motrin, Aleve, Advil, etc) as directed on the package label. These types of medicines wm significantly reduce the amount of discomfort you experience after surgery from swelling. It should be noted that if you have and allergy to any of these medications, or a history of ulcers or kidney disease you should consult you primary care provider prior to starting these medications. Discharge Attestations Time Spent in Discharge Care*: less than 30 min Quality Metrics Clinical Quality Measures [ No reported AMI, CVA or VTE this stay] Coding Level of Care Code Acute Code for Chg Fwd
[2023-04-14] MEDS: CLONazepam 0.5 mg Tablet PO (08:22)
[2023-04-14] MEDS: ondansetron 2 mg/ML SDV 2 mL 4 MG IVP (13:53)
--- NOTE | 2023-04-14 14:57 | PC.NURSE ---
Addendum entered by James Chandler RN 04/14/23 14:58: 100mL of blood output from drain since 629. NUrse alerted Dr vasquez to drain output rate. Received orders to remove hemovac drain. NUrse removed drain with no complications. No external bleeding noted. COvered site with covaderm. Original Note: 100mL of blood output from drain since 629. NUrse alerted Dr vasquez to drain output rate. Received orders to remove hemovac drain.
--- NOTE | 2023-04-14 16:58 | ANE.PACU2 ---
Inpatient post-anesthesia follow up: Airway intact: Yes Vital signs: Temperature 98.7 F Pulse Rate 68 Respiratory Rate 14 Blood Pressure 97/70 Pulse Oximetry 95 Oxygen Delivery Me thod Room Air Oxygen Flow Rate 2 Fraction of Inspir ed Oxygen Hydration adequate: Yes Nausea and vomiting: No Pain level: Other Pain level: Initially in PACU pt anxious, agitated, and complained of pain. Resolved. Mental status: Baseline
--- NOTE | 2023-04-14 18:17 | PC.NURSE ---
Patient ready for discharge. THough initially unsure if she was ready for DC this morning due to pain, her pain became better controlled with physical therapy and ambulation and IV pain medication was no longer needed for pain control. [place] comfortable going home near end of shift. Boyfriend will drive her home and stay with her while she recovers. Medications delivered via meds to bed. Thayer catheter, hemovac drain, and bilateral IVs removed. Upcoming appointment with Dr Gan, new medication, activity, and wound care instructions provided to both patient and boyfriend. Dressing should stay in place for 7 days, but should it come off nurse provided patient with island dressing to apply. Patient signature form signed. Patient taken out to vehicle via wheelchair and boyfirned took her home.
--- NOTE | 2023-04-14 18:24 | PC.NURSE ---
Shift summary: Uneventful shift. Patient was in bed for most of the day, but spent about 3 hours up in a chair, and ambulated twice with physical therapy. Pain medication requirements went down throughout the day. Patient discharged near end of shift.
== END 2023-04-14 17:30 | disposition home or self-care (01) | DRG 455 ==
LOC: MEDSURG 19:36 → ICU 21:50
PROVIDERS: Admitting Provider Orthopaedic Surgery; PCP Family Medicine; Visit Provider Orthopaedic Surgery
PROC: 0SG00AJ Fusion of Lumbar Vertebral Joint with Interbody Fusion Device, Posterior Approach, Anterior Column, Open Approach (ICD-10-PCS; principal; 2023-04-13 13:10)
PROC: 0SG00AJ Fusion of Lumbar Vertebral Joint with Interbody Fusion Device, Posterior Approach, Anterior Column, Open Approach (ICD-10-PCS; CPT 22612; 2023-04-13 13:10)
PROC: 0SG00AJ Fusion of Lumbar Vertebral Joint with Interbody Fusion Device, Posterior Approach, Anterior Column, Open Approach (ICD-10-PCS; CPT 27280; 2023-04-13 13:10)
PROC: 0SG00AJ Fusion of Lumbar Vertebral Joint with Interbody Fusion Device, Posterior Approach, Anterior Column, Open Approach (ICD-10-PCS; CPT 63005; 2023-04-13 13:10)
DX: T84.296A Other mechanical complication of internal fixation device of vertebrae, initial encounter (principal); M48.062 Spinal stenosis, lumbar region with neurogenic claudication; E78.5 Hyperlipidemia, unspecified; F43.12 Post-traumatic stress disorder, chronic; F17.210 Nicotine dependence, cigarettes, uncomplicated; F41.0 Panic disorder [episodic paroxysmal anxiety]; F41.1 Generalized anxiety disorder; F15.21 Other stimulant dependence, in remission; Z87.820 Personal history of traumatic brain injury; Y83.1 Surgical operation with implant of artificial internal device as the cause of abnormal reaction of the patient, or of later complication, without mention of misadventure at the time of the procedure
CPT/HCPCS: 36415; 51702; 72020; 76000; 86850; 86900; 97116; 97161; 97530; C1713; J0330; J0690; J1100; J1170; J1644; J1885; J2250; J2270; J2405; J2704; J2710; J3010; J3370; J3490; J3535; J7030; P9045; P9047

== ENCOUNTER → 2023-04-28 10:31 | Outpatient (BNVA) | payer MEDICAID, SELFPAY | PROVIDERS: PCP Family Medicine; Visit Provider Orthopaedic Surgery | DX: Z98.1 Arthrodesis status; Z47.89 Encounter for other orthopedic aftercare | CPT/HCPCS: 72100; 99024 ==

== ENCOUNTER → 2023-05-29 10:55 | Outpatient (BNVA) | payer MEDICAID, SELFPAY | PROVIDERS: PCP Family Medicine; Visit Provider Orthopaedic Surgery | DX: Z47.89 Encounter for other orthopedic aftercare (principal) | CPT/HCPCS: 72100; 99024; 99213 ==

== ENCOUNTER 2023-06-03 07:48 | Emergency (ER) | payer MEDICAID, SELFPAY ==
[2023-06-03 08:10] VITALS: BP 116/92; PULSE 93; RESP 18; TEMP 36.8; O2SAT 97; BMI 25.0
[2023-06-03 08:28] VITALS: BP 116/92; PULSE 85; O2SAT 98
--- NOTE | 2023-06-03 08:34 | ED_ITS ---
HPI - Abdominal Pain 2 General: Chief Complaint: Abdominal Pain Stated Complaint: lower right side abd pain Time Seen by Provider: 06/03/23 08:25 Source: patient Mode of arrival: ambulatory History of Present Illness: This patient presents to our emergency department this morning because of right lower abdominal pain. She states the pain feels burning in nature her her description. She states it began yesterday and she slept most of the night but woke up with the pain still present with associated nausea. She denies any vomiting or diarrhea. She denies dysuria or fevers. She has had back surgery approximately 6 weeks ago but denies any recent injury etc. She denies any weakness or numbness in her lower extremities loss of bowel or bladder control numbness etc. No history of kidney stones and she has not any urinary frequency or dysuria. She has had a prior hysterectomy. Pain has not changed his location and seems to be worse with riding in her car and sometimes bending. MD elicited complaint: abdominal pain Location: RLQ Associated Symptoms: Reports nausea; Denies chills, diarrhea, dysuria, fever(s), melena and vomiting Review of Systems 2 Const: Denies: fever(s) or chills ENMT: Denies: throat pain or odynophagia Card: Denies: chest pain or palpitations Resp: Denies: dyspnea, productive cough or non-productive cough GI: Reports: abdominal pain and nausea; Denies: vomiting, diarrhea or melena : Denies: difficulty voiding, dysuria or urinary frequency Musc: Denies: neck pain, extremity pain or extremity swelling Skin/Breast: Denies: rash or pruritus Neuro: Denies: headache(s), numbness in extremities or weakness in extremities PFSH ED 2 PFSH: Medical History History of hepatitis C Hyperlipidemia Traumatic brain injury Lumbar stenosis with neurogenic claudication Suicidal overdose Post-traumatic stress disorder, chronic Methamphetamine use disorder, severe, in sustained remission, dependence Generalized anxiety disorder Panic disorder Surgical History History of bilateral carpal tunnel release History of nasal septoplasty History of back surgery History of hysterectomy Family History Mother Cancer breast Father Lung disease Psychiatric illness Grandmother Stroke CAD (coronary artery disease) Denies family history of Anesthesia complication Bleeding disorder Social History Smoking and tobacco/nicotine status: current every day tobacco/nicotine user cigarettes Packs smoked per day: 0.5 Years cigarettes smoked: 25 and e- cigarettes Quit status (tobacco/nicotine): considering quitting Second hand smoke exposure: Yes Alcohol intake: never Substance/Drug Use: former Date of last use: iv drug in 20s Adopted: No Caregiver/support person: Yes Lives independently: Yes Household members: none Marital status: Legally Number of children: 4 Number of grandchildren: 2 Current occupational status: disabled Pets and animals: Yes Pets & animals: cat(s) and dog(s) Pets & animal details: christopher (dog), carol (cat) Leisure activites: art and other Leisure activities details: gardening Current gender identity: Female Special steve needs: No Agree to transfusion: Yes Physical Exam 2 Narrative: EXAM NARRATIVE: She makes good eye contact and appears to be comfortable and cooperative. Const: COMMON NORMALS: no acute distress, average body habitus, patient oriented x3, healthy appearing and alert GENERAL APPEARANCE: cooperative and comfortable HENMT: COMMON NORMALS: normocephalic, Normal nasal mucous membranes and turbinates present and moist oral mucous membranes HEAD & SCALP: n ormocephalic NOSE: Normal nasal mucous membranes and turbinates present Eye: COMMON NORMALS: Equal, round and reactive pupils present and conjunctivae normal CONJUNCTIVA: Yes conjunctivae normal PUPIL: Yes Equal, round and reactive pupils present Neck/C-Spine: COMMON NORMALS: full ROM, no lymphadenopathy, supple and Thyroid normal THYROID: Thyroid normal Chest: COMMONS NORMALS: normal inspection of the chest Resp: COMMON NORMALS: normal respiratory effort, No retractions, No use of accessory muscles and clear to auscultation bilaterally AUSCULTATION: clear to auscultation bilaterally Cardio: COMMON NORMALS: regular rate, regular rhythm, No murmurs present (Cardio) and Peripheral pulses 2+ throughout RATE: regular rate RHYTHM: r egular rhythm PERIPHERAL PULSES: Peripheral pulses 2+ throughout GI: COMMON NORMALS: Normal to inspection, nondistended, normoactive bowel sounds present, no masses and no bruits OTHER: She is tender in the right lower quadrant to palpation. Internal and external rotation of the right hip seems to exacerbate her symptoms. No other focal abdominal tenderness noted. No peritoneal irritation. : COMMON NORMALS: Yes no CVA tenderness BLADDER/KIDNEY EXAM: Yes no CVA tenderness Back/Pelvis: COMMON NORMALS: no CVA tenderness, thoracic and lumbar spine normal to inspection, no thoracic nor lumbar tenderness, thoraco-lumbar ROM normal and straight leg raise negative bilaterally SACROILIAC JOINTS: Yes SI joint(s) abnormal SI joint details: tender to palpation (Right) OTHER: Midline lumbar surgical scar well-healed without redness drainage etc. BACK IMAGE (FEMALE): 1. Area of tenderness. No erythema ecchymosis etc. Extremity: COMMON NORMALS: normal to inspection, full ROM, capillary refill normal, no calf tenderness and no pedal edema Neuro: COMMON NORMALS: patient oriented x3, moves all extremities, no focal motor deficits, no sensory deficits noted and deep tendon reflexes 2+ bilaterally SENSORIUM/ORIENTATION: Yes alert CRANIAL NERVES: Yes CN normal except as noted Psych: COMMON NORMALS: mental status grossly normal Skin: COMMON NORMALS: no rashes or lesions noted, no wounds and turgor normal GENERAL SKIN EXAM: no rashes or lesions noted and turgor normal Course 2 Reevaluation(s): Reevaluation #1: Patient's currently stable with no new findings on repeat examination. She does have localized tenderness over the PSIS which was noted on initial physical examination without any evidence of positive straight leg raising midline tenderness or other concerns. In light of her negative workup for any intra-abdominal process most likely this represents a sacroiliac joint dysfunction. No evidence at this time to suggest this is referable to her back surgery or the lumbar spine. I discussed home therapies, expected course and reasons to return with both she and her spouse and they were appreciative of care and voiced understanding. Time: 10:16 Vital Signs: Vital signs: Vital Signs Temperature 98.3 F 06/03/23 08:10 Pulse Rate 71 06/03/23 09:07 Respiratory Rate 18 06/03/23 08:10 Blood Pressure 125/80 06/03/23 09:07 Pulse Oximetry 97 06/03/23 09:07 Oxygen Delivery Me thod Room Air 06/03/23 09:07 MDM - Abdominal Pain Medical Decision Making This patient presented to our emergency department because of right sided flank pain. Pain began approximately 24 hours prior to presentation. There was no associated fever dysuria nausea vomiting diarrhea or other contributory symptoms. She denies any known injuries falls or lifting. She had recent lumbar fusion done approximately 6 weeks prior to presentation today. She had a prior hysterectomy but no other abdominal surgeries. Examination was remarkable for tenderness in the right lower region of her abdomen superior to the pelvic brim as well as some posterior superior iliac spine region tenderness with some reproduction of symptoms with rotation of hip. There is no focal neurologic findings weakness or other concerning physical exam findings. Examination was undertaken to ensure no evidence of appendicitis, kidney stone, urinary tract infection or other potential contributing etiologies. Workup was unrevealing for any evidence of same. Repeat examination reproduced her previous symptoms and seems most consistent with a sacroiliac joint dysfunction discomfort. I discussed likely etiology with patient and spouse as well as expected course and reasons to return. Lab Data I reviewed the patient's lab results. 06/03/23 08:20 06/03/23 08:20 Labs/Radiology: Laboratory Results WBC 4.86 10^3/uL (3.29-11.43) 06/03/23 08:20 RBC 4.69 10^6/uL (3.85-5.65) 06/03/23 08:20 Hgb 13.60 g/dL (11.27-16.99) 06/03/23 08:20 Hct 43.3 % (36-47) 06/03/23 08:20 MCV 92.3 fl (85-98) 06/03/23 08:20 MCH 29.0 pg (27-33) 06/03/23 08:20 MCHC 31.4 g/dL (30-55) 06/03/23 08:20 RDW 13.2 % (12.1-15.1) 06/03/23 08:20 Plt Count 289 10^3/cmm (157-399) 06/03/23 08:20 MPV 10.5 fL (7.4-10.4) H 06/03/23 08:20 Neut % (Auto) 56.3 % 06/03/23 08:20 Lymph % (Auto) 34.0 % 06/03/23 08:20 Grand % (Auto) 6.8 % 06/03/23 08:20 Eos % (Auto) 2.1 % 06/03/23 08:20 Baso % (Auto) 0.6 % 06/03/23 08:20 Neut # (Auto) 2.74 10^3/uL (1.8-7.7) 06/03/23 08:20 Lymph # (Auto) 1.7 10^3/uL (0.8-4.8) 06/03/23 08:20 Grand # (Auto) 0.3 10^3/uL (0.2-0.9) 06/03/23 08:20 Eos # (Auto) 0.1 10^3/uL (0.0-0.8) 06/03/23 08:20 Baso # (Auto) 0.0 10^3/uL (0.0-0.1) 06/03/23 08:20 Nucleated RBC % (auto) 0 % 06/03/23 08:20 Nucleated RBCs # 0.0 /100WBC 06/03/23 08:20 Sodium 137 mmol/L (136-145) 06/03/23 08:20 Potassium 4.1 mmol/L (3.5-5.1) 06/03/23 08:20 Chloride 104 mmol/L (98-107) 06/03/23 08:20 Carbon Dioxide 20 mmol/L (22-29) L 06/03/23 08:20 Anion Gap 17.1 (5-19) 06/03/23 08:20 BUN 15 mg/dL (6-20) 06/03/23 08:20 Creatinine 1.0 mg/dL (0.5-0.9) H 06/03/23 08:20 GFR Calculation 58.9 mL/min (90-130) L 06/03/23 08:20 Glucose 107 mg/dL (65-115) 06/03/23 08:20 Calculated Osmolality 285 mOsm/kg (285-295) 06/03/23 08:20 Calcium 9.4 mg/dL (8.5-10.5) 06/03/23 08:20 Total Bilirubin 0.2 mg/dL (0.15-1.2) 06/03/23 08:20 AST 15 U/L (0-32) 06/03/23 08:20 ALT 6 U/L (0-33) 06/03/23 08:20 Alkaline Phosphatase 111 U/L (35-105) H 06/03/23 08:20 Total Protein 7.5 g/dL (6.6-8.7) 06/03/23 08:20 Albumin 4.3 g/dL (3.5-5.2) 06/03/23 08:20 Globulin 3.2 g/dL (1.3-4.6) 06/03/23 08:20 Urine Color Yellow (Yellow) 06/03/23 08:47 Urine Appearance Clear (CLEAR) 06/03/23 08:47 Urine pH 6 (5-7) 06/03/23 08:47 Ur Specific [place] 1.010 (1.005-1.030) 06/03/23 08:47 Urine Protein Neg (Negative) 06/03/23 08:47 Urine Glucose (UA) Norm (Normal) 06/03/23 08:47 Urine Ketones Negative (Negative) 06/03/23 08:47 Urine Blood Neg (Negative) 06/03/23 08:47 Urine Nitrate Negative (Negative) 06/03/23 08:47 Urine Bilirubin Neg (Negative) 06/03/23 08:47 Urine Urobilinogen Norm mg/dL (Negative) 06/03/23 08:47 Ur Leukocyte Esterase Negative (Negative) 06/03/23 08:47 All radiology interpretation(s) finalized by discharge Discharge Plan Discharge Patient Disposition: Home Clinical Impression: Sacroiliac joint dysfunction of right side Condition: Stable Prescriptions: No Action oxycodone 5 mg tablet 5 mg PO Q4H PRN (Reason: pain) 7 Days Qty: 40 0RF albuterol sulfate [ProAir HFA] 90 mcg/actuation HFA aerosol inhaler 2 puff INHALATION Q6H PRN (Reason: Shortness Of Breath) Qty: 8.5 0RF baclofen 10 mg tablet 10 mg PO TID PRN (Reason: muscle spasm) Qty: 90 0RF clonazepam 0.5 mg tablet 0.5 mg PO TID PRN (Reason: anxiety) Qty: 90 0RF Aspir-81 81 mg Tablet,Delayed Release (Dr/Ec) 81 - 162 mg PO .ONE TIME DOSE docusate sodium 100 mg capsule 100 mg PO BID PRN (Reason: Constipation) cholecalciferol (vitamin D3) 1,250 mcg (50,000 unit) capsule 50,000 unit PO Q7D Rx Instructions: on thursday gabapentin 800 mg tablet 800 mg PO TID escitalopram oxalate 20 mg tablet 20 mg PO BEDTIME fenofibrate nanocrystallized 48 mg tablet 48 mg PO BEDTIME Discharge Orders: Discharge ED (Routine); Ordered 06/03/23 Ordered By: Jose Shahid Referrals: Sherry Porter MD [Primary Care Provider] - Discharge Diet: Usual diet Discharge Activity: Increase activity as tolerated Patient Instructions: Opioid Safety, Pain Management Activity Restrictions/Additional Instructions: As we discussed we think your symptoms today are related to an area called your sacroiliac joint. This area of your back and pelvis and can many times have some transient pain from minor activity and should resolve with use of acetaminophen in the usual [id number] doses, ice pack to the area for 15 to 20 minutes 3-4 times daily and gentle stretching. If it anytime you develop worsening symptoms such as increasing abdominal pain, increasing low back pain numbness weakness or other concerns return to this or the nearest emergency department for reevaluation. Coding Level of Care Code ED Specimen Accessioner for Go Maddox
--- NOTE | 2023-06-03 08:36 | CT_ITS ---
WS: [id number] CT ABDOMEN AND PELVIS WITH CONTRAST HISTORY: rlq abd pain TECHNIQUE: Imaging performed of the abdomen and pelvis with IV contrast. Single phase imaging of the abdomen. Coronal and sagittal reformats are submitted. All CT scans at [facility] use at [address] one of these dose optimization techniques: automated exposure control; mA and/or kV adjustment per patient size (includes targeted exams where dose is matched to clinical indication); or iterative re construction. IV CONTRAST: Omnipaque 350; 100 mL IV. Oral contrast: No DLP: 614.14 mGy.cm COMPARISON: 03/17/2022 Lower thorax: Lung bases are clear. Heart is normal size. No hiatal hernia. Liver/biliary system: Normal size with no intrahepatic dilatation. Gallbladder: Normal. No gallstones or wall thickening. No pericholecystic fluid. Pancreas: Normal size pancreas and pancreatic duct. No adjacent inflammation. Spleen: Normal size spleen. No mass or infarct. Adrenal glands: Normal. Right kidney: Normal. Left kidney: Normal size with no obstruction. Too small to characterize 4 mm hypodensity mid kidney. Aorta: Mild atherosclerosis with no aneurysm. Lymphadenopathy: None. Free fluid: None. GI tract: Nondistended stomach. No small bowel obstruction. Mild constipation. Appendix is not identi fied. Abdominal wall: Unremarkable abdominal wall. No hernia. Pelvis: No free fluid or adenopathy within the pelvis. Prior hysterectomy. Bones: Posterior lumbar fusion from L3-S1. There is a small postoperative collection at the site of t he prior fusion extending over a length of 6.0 cm x 1.0 cm. Recent postoperative changes at the large laminectomy site. IMPRESSION: 1. The appendix is not definitely identified but there are no secondary findings of appendicitis. 2. Moderate diffuse constipation. 3. No renal obstruction or calcifications identified. 4. No free fluid or free air.
[2023-06-03] MEDS: sodium chloride 0.9% 1,000 ML 999 ML IV (08:53)
[2023-06-03 08:56] LABS: Add Urine Microscopic? NO; Charge for UA Resulting for Rev
[2023-06-03 08:57] LABS: Basophils % 0.6 %; Eosinophils # 0.1 10^3/uL (0.0-0.8); Eosinophils % 2.1 %; Hematocrit 43.3 % (36-47); Lymphocytes # 1.7 10^3/uL (0.8-4.8); Mean Corpuscular HGB Conc 31.4 g/dL (30-55); Mean Corpuscular Volume 92.3 fl (85-98); Mean Platelet Volume 10.5 fL (7.4-10.4); Monocytes # 0.3 10^3/uL (0.2-0.9); Monocytes % 6.8 %; Neutrophils # 2.74 10^3/uL (1.8-7.7); Neutrophils % 56.3 %; Nucleated Red Blood Cells % 0 %; Platelet Count 289 10^3/cmm (157-399); Red Blood Count 4.69 10^6/uL (3.85-5.65); Red Cell Distribution Width 13.2 % (12.1-15.1); White Blood Count 4.86 10^3/uL (3.29-11.43)
[2023-06-03] MEDS: ondansetron 2 mg/ML SDV 2 mL 4 MG IVP (08:57)
[2023-06-03] MEDS: fentaNYL 50 mcg/mL INJ 2mL IVP (08:58)
[2023-06-03 09:05] LABS: Bilirubin Urine Neg (Negative); Blood Urine Neg (Negative); Glucose Urine UA Norm (Normal); Ketones Urine Negative (Negative); Leukocyte Esterase Urine Negative (Negative); Nitrate Urine Negative (Negative); Protein Urine Neg (Negative); Urine Appearance Clear (CLEAR); Urine Color Yellow (Yellow); Urobilinogen Urine Norm (Negative); pH Urine 6 (5-7)
[2023-06-03 09:07] VITALS: BP 125/80; PULSE 71; O2SAT 97
[2023-06-03 09:13] LABS: Alanine Aminotransferase 6 U/L (0-33); Albumin Level 4.3 g/dL (3.5-5.2); Alkaline Phosphatase 111 U/L (35-105); Anion Gap 17.1 (5-19); Aspartate Amino Transferase 15 U/L (0-32); Blood Urea Nitrogen 15 mg/dL (6-20); Calcium 9.4 mg/dL (8.5-10.5); Carbon Dioxide 20 mmol/L (22-29); Chloride 104 mmol/L (98-107); Globulin 3.2 g/dL (1.3-4.6); Glomerular Filtration Rate 58.9 mL/min (90-130); Glucose 107 mg/dL (65-115); Osmolality Calculated 285 mOsm/kg (285-295); Potassium 4.1 mmol/L (3.5-5.1); Sodium 137 mmol/L (136-145); Total Bilirubin 0.2 mg/dL (0.15-1.2); Total Protein 7.5 g/dL (6.6-8.7)
[2023-06-03 09:23] LABS: Creatinine Clr Calc Pharmacy 70.8934
[2023-06-03] MEDS: iohexol 350 mg/mL 500 mL Btl (per mL) IV (09:29)
[2023-06-03 09:30] VITALS: BP 140/70; PULSE 77; O2SAT 96
[2023-06-03 10:40] VITALS: BP 102/74; PULSE 77; O2SAT 95
== END 2023-06-03 10:41 | disposition home or self-care (01) ==
PROVIDERS: Emergency Provider Emergency Medicine; PCP Family Medicine
DX: M53.3 Sacrococcygeal disorders, not elsewhere classified (principal); F17.210 Nicotine dependence, cigarettes, uncomplicated; F17.290 Nicotine dependence, other tobacco product, uncomplicated; Z86.19 Personal history of other infectious and parasitic diseases; E78.5 Hyperlipidemia, unspecified
CPT/HCPCS: 74177; 80053; 81003; 85025; 96374; 96375; 99285; J2405; J3010; J7030; Q9967

== ENCOUNTER → 2023-07-16 09:12 | Outpatient (BNVA) | payer MEDICAID, SELFPAY | PROVIDERS: PCP Family Medicine; Visit Provider Orthopaedic Surgery | DX: M54.9 Dorsalgia, unspecified (principal); Z98.1 Arthrodesis status | CPT/HCPCS: 72100; 99024 ==

== ENCOUNTER → 2023-08-04 10:27 | Outpatient (BNVA) | payer MEDICAID, SELFPAY | PROVIDERS: PCP Family Medicine; Visit Provider Orthopaedic Surgery | DX: Z98.1 Arthrodesis status | CPT/HCPCS: 99213 ==

== ENCOUNTER → 2023-09-15 08:37 | Outpatient (BNVA) | payer MEDICAID, SELFPAY | PROVIDERS: PCP Family Medicine; Visit Provider Orthopaedic Surgery | DX: Z09 Encounter for follow-up examination after completed treatment for conditions other than malignant neoplasm (principal) | CPT/HCPCS: 99213 ==

== ENCOUNTER 2023-10-12 12:06 | Outpatient (RCR) | payer MEDICAID, SELFPAY | END 2023-11-04 23:59 | disposition home or self-care (01) | LOC: SPT 12:06 | PROVIDERS: PCP Family Medicine; Visit Provider Orthopaedic Surgery | DX: M54.9 Dorsalgia, unspecified (principal); G89.29 Other chronic pain; Z98.1 Arthrodesis status | CPT/HCPCS: 97110; 97161 ==

== ENCOUNTER → 2023-12-14 13:40 | Outpatient (BNVA) | payer MEDICAID, SELFPAY | PROVIDERS: PCP Family Medicine; Visit Provider Family Medicine | DX: J06.9 Acute upper respiratory infection, unspecified (principal) | CPT/HCPCS: 87426 ==

== ENCOUNTER 2024-01-05 08:00 | Outpatient (CLI) | payer MEDICAID, SELFPAY ==
--- NOTE | 2024-01-05 | ECG_ITS ---
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 Interpretive Statements LEXISCAN SESTAMIBI STRESS TEST Procedure: At the baseline, the blood pressure was 129/87 mmHg with a heart rate of 64 bpm. The electrocardiogram showed normal sinus rhythm, normal axis with normal ST and T's. The Lexiscan was infused over a period of 20 seconds. A total of 0.4 mg of Lexiscan was infused. The stress phase was continued for a total of 5 minutes. Heart rate was at the end of stress phase was 74 bpm and a blood pressure of 113/79 mmHg. The EKG at the peak infusion revealed normal sinus rhythm with no significant ST-T wave changes. Sestamibi was injected 20 seconds after the Lexiscan infusion. Blood pressure at the end of recovery phase was 115/76 mmHg with a heart rate of 75 bpm. Conclusion: 1. Normal EKG response to Lexiscan infusion 2. No Lexiscan induced chest pain or cardiac arrhythmia. 3. Normal blood pressure and heart rate response. 4. Sestamibi/sestamibi perfusion scan pending; see separate report. Electronically Signed On 01-15-2024 21:47:43 CDT by Matthias Georges M.D. [email or web address]
[2024-01-05 08:34] VITALS: BMI 29.0
--- NOTE | 2024-01-05 08:35 | NMCV_ITS ---
NM vianey perf SPECT r/s* [id number] Diya Marroquin Age: 48 Gender: F : 1975 Exam Date: 01/05/2024 08:35 Ordering Phys: Sherry Porter MD Technologist: KEVIN Selby Exam Location: [facility] Indications: cp STRESS TEST Please see separate stress test report in [facility] for full findings IMAGE PROTOCOL Rest/Stress 1 Lexiscan Day Radiopharmaceutical Dose (mCi) Administration Site Administered by Rest: Tc-99m 10.9 IV KEVIN Selby Sestamibi Stress:Tc-99m 32.9 IV KEVIN Rivers Sestamibi Rest: 05-Jan-2024 60 Discovery 630 Stress: 05-Jan-2024 30 Discovery 630 0.4mg Lexiscan. Images obtained in supine and prone position. SPECT RESULTS Technical Quality: Good Raw Data Analysis: Normal Image Corrections: No attenuation or motion correction applied Summed Stress Score: 0 Summed Rest Score: 1 Summed Difference Score: 0 PERFUSION FINDINGS SPECT images demonstrate homogeneous tracer distribution throughout the myocardium. FUNCTIONAL RESULTS (calculated via Gated SPECT) Stress Image LV EF (%): 64 Stress EDV (mL):117 TID: 1.1 Stress ESV (mL):42 FUNCTIONAL FINDINGS: There is normal left ventricular systolic function. IMPRESSIONS 1. Normal myocardial perfusion imaging with no evidence of ischemia. 2. LV systolic function is normal Matthias Georges MD (Electronically Signed) Final Date: 08 January 2024 11:47 S
[2024-01-05] MEDS: regadenoson 0.4 Mg/5 ml Syringe IVP (09:35)
[2024-01-05 09:42] VITALS: BP 155/76; PULSE 80
== END 2024-01-05 08:01 | disposition home or self-care (01) ==
PROVIDERS: PCP Family Medicine; Visit Provider Family Medicine
DX: R07.9 Chest pain, unspecified (principal); R06.02 Shortness of breath
CPT/HCPCS: 36415; 78452; 93017; 96374; A9500; J2785

== ENCOUNTER → 2024-01-12 10:54 | Outpatient (BNVA) | payer MEDICAID, SELFPAY | PROVIDERS: PCP Family Medicine; Visit Provider Orthopaedic Surgery | DX: Z98.1 Arthrodesis status (principal); M25.562 Pain in left knee; M48.062 Spinal stenosis, lumbar region with neurogenic claudication | CPT/HCPCS: 72100; 99213 ==

== ENCOUNTER 2024-01-13 14:40 | Outpatient (CLI) | payer MEDICAID, SELFPAY ==
--- NOTE | 2024-01-13 14:43 | XR_ITS ---
WS: [id number] XR knee LT 3V* [id number] REASON FOR EXAM: bilateral knee pain FINDINGS: No fracture or focal bone lesion. The joint spaces of the left knee are intact and well preserved. No soft tissue abnormality. XR/XR knee LT 3V* [id number] IMPRESSION: No significant abnormality.
--- NOTE | 2024-01-13 14:43 | XR_ITS ---
WS: [id number] XR knee RT 3V* [id number] REASON FOR EXAM: bilateral knee pain FINDINGS: Possible trace suprapatellar joint effusion. No fracture or focal bone lesion. Joint spaces of the right knee are intact and well preserved. XR/XR knee RT 3V* [id number] IMPRESSION: Possible trace joint effusion with no significant bone or joint abnormality saeed ntified.
== END 2024-01-13 14:41 | disposition home or self-care (01) ==
LOC: RAD 14:41
PROVIDERS: PCP Family Medicine; Visit Provider Family Medicine
DX: M25.561 Pain in right knee (principal); M25.562 Pain in left knee
CPT/HCPCS: 73562

== ENCOUNTER → 2024-02-03 10:06 | Outpatient (BNVA) | payer MEDICAID, SELFPAY | PROVIDERS: PCP Family Medicine; Visit Provider Specialist | DX: M25.562 Pain in left knee (principal) | CPT/HCPCS: 73560; 73565; 99204 ==

== ENCOUNTER 2024-02-05 12:55 | Emergency (ER) | payer MEDICAID, SELFPAY ==
[2024-02-05 13:22] VITALS: BP 151/110; PULSE 79; RESP 20; TEMP 36.8; O2SAT 97
--- NOTE | 2024-02-05 13:39 | ED_ITS ---
HPI - Extremity Problem General: Chief complaint: Extremity Injury, Lower Stated complaint: LArge lump rt knee Time Seen by Provider: 02/05/24 13:33 Source: patient Mode of arrival: ambulatory Limitations: no limitations History of Present Illness: Patient is a 48-year-old female presents to ED today with a complaint of a sensation of fluid running down the back of my leg . She feels like she has a knot to her right posterior knee. She states she has seen her primary care provider as well as Dr. Blakely for evaluation of her knees. She saw her primary care earlier last month and complained of a knot to the left knee at the time. She states now she feels like the knot is in her right knee and it travels down into her calf. She keeps telling me it feels like there is fluid running down from her knee into her calf. She has not noticed any color or temperature changes to the knee joint or lower leg. She has no known history of DVT. Denies numbness/tingling/loss of sensation. MD Complaint: extremity pain and joint pain Onset (ago): day(s) Pain Consistency: intermittent Location: right, lower extremity and knee Radiation: none Relieving factors: nothing Exacerbating factors: nothing Associated symptoms: Reports no associated symptoms; Deny chest pain or fever(s) Related Data Home Medications Medication Instructions Recorded Confirmed aspirin 81 mg tablet,delayed 81 - 162 mg PO .ONE TIME DOSE 06/03/23 02/05/24 release chest pain cholecalciferol (vitamin D3) 1,250 50,000 unit PO Q7D 06/03/23 02/05/24 mcg (50,000 unit) capsule baclofen 10 mg tablet 10 mg PO TID PRN Muscle Spasm 02/05/24 02/05/24 gabapentin 800 mg tablet 800 mg PO TID 02/05/24 02/05/24 Previous Rx's Medication Instructions Recorded docusate sodium 100 mg capsule 100 mg PO BID PRN Constipation #60 07/13/23 caps hinged knee brace, left #1 ea 12/01/23 albuterol sulfate 2.5 mg/3 mL 2.5 mg (3 mL) inhalation Q4H PRN 12/14/23 (0.083 %) solution for nebulization shortness of breath or wheezing #75 mL albuterol sulfate 90 mcg/actuation 2 puff inhalation Q6H PRN 12/14/23 aerosol inhaler Shortness Of Breath #8.5 grams fenofibrate nanocrystallized 48 mg 48 mg PO BEDTIME #90 tabs 01/06/24 tablet nitroglycerin 0.4 mg sublingual 0.4 mg sublingual Q5M PRN chest 01/06/24 tablet pain #100 tabs meloxicam 15 mg tablet 15 mg PO DAILY #30 tabs 01/26/24 clonazepam 0.5 mg tablet 0.5 mg PO TID PRN anxiety #90 tabs 01/27/24 escitalopram oxalate 20 mg tablet 20 mg PO BEDTIME #90 tabs 01/27/24 hydrocodone 5 mg-acetaminophen 325 1 tab PO Q4H PRN pain 14 days #80 02/04/24 mg tablet tabs methylprednisolone 4 mg tablets in See Rx Instructions PO .COMPLEX 02/05/24 a dose pack (Medrol (Harinder)) #21 ea Allergies Allergy/AdvReac Type Severity Reaction Status Date / Time No Known Allergies Allergy Verified 02/04/24 09:53 Review of Systems Const: Denies: fever(s) Card: Denies: chest pain Resp: Denies: dyspnea, pain on inspiration or hemoptysis Musc: Reports: joint swelling (feels like a knot behind her R knee); Denies: neck pain, back pain, extremity swelling, joint redness, joint warmth or limited range of motion Neuro: Denies: numbness in extremities, weakness in extremities or difficulty walking [facility] ED PFSH: Medical History History of hepatitis C Hyperlipidemia Traumatic brain injury Lumbar stenosis with neurogenic claudication Suicidal overdose Post-traumatic stress disorder, chronic Methamphetamine use disorder, severe, in sustained remission, dependence Generalized anxiety disorder Panic disorder Surgical History History of bilateral carpal tunnel release History of nasal septoplasty History of back surgery History of hysterectomy Family History Mother Cancer breast Father Lung disease Psychiatric illness Grandmother Stroke CAD (coronary artery disease) Denies family history of Anesthesia complication Bleeding disorder Social History Smoking and tobacco/nicotine status: current every day tobacco/nicotine user Physical Exam Const: COMMON NORMALS: no acute distress, patient oriented x3, no limitations, alert and well nourished GENERAL APPEARANCE: cooperative Resp: COMMON NORMALS: normal respiratory effort and clear to auscultation bilaterally AUSCULTATION: clear to auscultation bilaterally Cardio: COMMON NORMALS: regular rate and regular rhythm RATE: regular rate RHYTHM: regular rhythm Extremity: COMMON NORMALS: full ROM, capillary refill normal, no clubbing, cyanosis or edema, no calf tenderness and no pedal edema GENERAL: Yes normal exam except as noted RIGHT LOWER EXTREMITY: Yes knee joint (tenderness posterior R knee/Wing's Cyst palpated) Right knee: Yes ROM (normal) and Yes neurovascular exam (normal) OTHER: No R calf pain/swelling; DP/PT pulses palpated, brisk cap refill, sensation normal Neuro: COMMON NORMALS: patient oriented x3, moves all extremities, no focal motor deficits, no sensory deficits noted and gait normal SENSORIUM/ORIENTATION: Yes alert Skin: COMMON NORMALS: no rashes or lesions noted GENERAL SKIN EXAM: no rashes or lesions noted Course Vital Signs: Vital signs: Vital Signs Temperature 98.2 F 02/05/24 13:22 Pulse Rate 79 02/05/24 13:22 Respiratory Rate 20 H 02/05/24 13:22 Blood Pressure 151/110 02/05/24 13:22 Pulse Oximetry 97 02/05/24 13:22 Oxygen Delivery Me thod Room Air 02/05/24 13:22 MDM - Extremity (Nontraumatic) Medical Decision Making [employer] reporting Wing's Cyst. No DVT. No evidence for dissected/ruptured cyst. No concern at this time for venous obstruction, nerve entrapment, compartment syndrome, or other complication. She has an appointment scheduled with Dr. Blakely for 02/14 that she can use for follow up. Return precautions discussed. Medical Records I reviewed the patient's medical records. XR interpretation done by ED provider, pending radiology final review ([employer] prelim report) Discharge Plan Discharge Patient Disposition: Home Clinical Impression: Synovial cyst of popliteal space [Wing], right knee Condition: Stable Prescriptions: New methylprednisolone [Medrol (Harinder)] 4 mg tablets,dose pack See Rx Instructions .ROUTE .COMPLEX Qty: 21 0RF Rx Instructions: orally per package directions No Action albuterol sulfate 90 mcg/actuation HFA aerosol inhaler 2 puff INHALATION Q6H PRN (Reason: Shortness Of Breath) Qty: 8.5 0RF albuterol sulfate 2.5 mg /3 mL (0.083 %) solution for nebulization 2.5 mg inhalation Q4H PRN (Reason: shortness of breath or wheezing) Qty: 75 0RF docusate sodium 100 mg capsule 100 mg PO BID PRN (Reason: Constipation) Qty: 60 3RF (DME) hinged knee brace, left See Rx Instructions .Route .MEDSUPPLY Qty: 1 0RF Rx Instructions: As directed fenofibrate nanocrystallized 48 mg tablet 48 mg PO BEDTIME Qty: 90 0RF nitroglycerin 0.4 mg tablet, sublingual 0.4 mg sublingual Q5M PRN (Reason: chest pain) Qty: 100 0RF Rx Instructions: do not exceed 3 doses per episode meloxicam 15 mg tablet 15 mg PO DAILY Qty: 30 0RF escitalopram oxalate 20 mg tablet 20 mg PO BEDTIME Qty: 90 0RF clonazepam 0.5 mg tablet 0.5 mg PO TID PRN (Reason: anxiety) Qty: 90 0RF hydrocodone-acetaminophen 5-325 mg tablet 1 tab PO Q4H PRN (Reason: pain) 14 Days Qty: 80 0RF aspirin [Aspir-81] 81 mg Tablet,Delayed Release (Dr/Ec) 81 - 162 mg PO .ONE TIME DOSE cholecalciferol (vitamin D3) 1,250 mcg (50,000 unit) capsule 50,000 unit PO Q7D Rx Instructions: on thursday gabapentin 800 mg tablet 800 mg PO TID baclofen 10 mg tablet 10 mg PO TID PRN (Reason: Muscle Spasm) Discharge Orders: Discharge ED (Routine); Ordered 02/05/24 Ordered By: Coco Kincaid Referrals: Sherry Porter MD [Primary Care Provider] - Patient Instructions: Wing's Cyst, Wing Cyst (ED) Activity Restrictions/Additional Instructions: As we discussed, you may use your compression bandage as well as elevate and ice the posterior aspect of your knee. You may begin taking an [id number] ant i-inflammatory such as naproxen or ibuprofen. Will place you on prescription steroids. Please speak to your orthopedic provider at your currently scheduled appointment on 02/14. Sometimes intra-articular injection of the popliteal cyst can be beneficial for symptoms. They can also speak to you about other potential options for treatment. Coding Level of Care Code ED Wire Chief for [employer]
--- NOTE | 2024-02-05 13:50 | USCV_ITS ---
Diya Marroquin Age: 48 Gender: F : 1975 Exam Date: 02/05/2024 14:12 Ordering Phys: Coco Kincaid Technologist: CT Exam Location: [facility] [place]_ Indication: palp area posterior rt knee PROCEDURES: Venous duplex imaging was performed in only the right lower extremity. On the right side, the common femoral, superficial femoral, profunda femoral, popliteal, posterior tibial, greater saphenous veins and the peroneal trunk were identified and interrogated in the standard fashion. These veins were found to be easily compressible with spontaneous blood flow. No evidence of insufficiency or thrombus noted. FINDINGS: Normal 2-D Doppler and augmentation and compressibility throughout the lower extremity venous structures. Additional imaging through the proximal calf veins also reveals no thrombus. Limited evaluation of the greater saphenous vein is patent with no thrombus. Complex cystic mass with low level echos and no vascularity right popliteal fossa. CONCLUSIONS No DVT right lower extremity. Right popliteal fossa Wing's cyst. Dr. Brandee Guidry DO (Electronically Signed) Final Date: 05 February 2024 14:32 S
[2024-02-05 14:35] VITALS: RESP 18
== END 2024-02-05 14:36 | disposition home or self-care (01) ==
PROVIDERS: Emergency Provider Physician Assistant; PCP Family Medicine
DX: M71.21 Synovial cyst of popliteal space [Baker], right knee (principal); Z72.0 Tobacco use
CPT/HCPCS: 93971; 99284

== ENCOUNTER → 2024-02-17 14:37 | Outpatient (BNVA) | payer MEDICAID, SELFPAY | PROVIDERS: PCP Family Medicine; Visit Provider Specialist | DX: M25.561 Pain in right knee | CPT/HCPCS: 73560; 73565; 99214 ==

== ENCOUNTER 2024-02-22 14:25 | Outpatient (CLI) | payer MEDICAID, SELFPAY ==
--- NOTE | 2024-02-22 14:30 | MR_ITS ---
WS: [id number] MRI LEFT KNEE HISTORY: S89.92XA - Unspecified injury of left lower leg, initial ... COMPARISON: 02/17/2024 radiograph Anterior cruciate ligament: Intact. Posterior cruciate ligament: Intact. Medial collateral ligament: Slight displacement from the joint line by an extruded meniscus. Posterior lateral corner structures: Intact. Medial menisci: Complex tear posterior horn medial meniscus. Tear extends to the inferior articular s urface towards the free edge. Anterior horn is normal. Lateral meniscus: Intact. Normal signal, size and shape. Extensor mechanism: Distal quadriceps tendon and patellar tendons are intact. Fluid and soft tissue: Large suprapatellar joint effusion. No Wing's cyst. Osseous and articular structures: Patellofemoral compartment: Normal. Medial compartment: Mild narrowing of the medial compartment. Thinning and fissuring of the cartilage but no full-thickness meniscal tear. No fracture. Small amount of marrow edema in the anterior media l femoral condyle and tibial plateau. Small marginal osteophytes. Partial extrusion of the meniscus. Lateral compartment: Mild joint space narrowing. MR/MR knee LT wo con* [id number] IMPRESSION: 1. Large suprapatellar joint effusion. 2. Horizontal tear posterior horn medial meniscus extends to the inferior cory cular surface near the free edge. 3. Partially extruded medial meniscus from the joint line. 4. Mild marrow the medial compartment with thinning and fissuring of the carti ever. No full-thickness cartilage defect. 5. Very subtle marrow edema in the anterior medial femoral condyle and tibial plateau.
== END 2024-02-22 14:26 | disposition home or self-care (01) ==
LOC: RAD 14:25
PROVIDERS: PCP Family Medicine; Visit Provider Specialist
DX: M23.222 Derangement of posterior horn of medial meniscus due to old tear or injury, left knee (principal); M25.462 Effusion, left knee
CPT/HCPCS: 73721

== ENCOUNTER → 2024-03-10 14:37 | Outpatient (BNVA) | payer MEDICAID, SELFPAY | PROVIDERS: PCP Family Medicine; Visit Provider Specialist | DX: M17.12 Unilateral primary osteoarthritis, left knee (principal); M25.561 Pain in right knee | CPT/HCPCS: 20610; 99214 ==

== ENCOUNTER → 2024-04-14 15:42 | Outpatient (BNVA) | payer MEDICAID, SELFPAY | PROVIDERS: PCP Family Medicine; Visit Provider Orthopaedic Surgery | DX: Z98.1 Arthrodesis status (principal) | CPT/HCPCS: 72100; 99213 ==

== ENCOUNTER → 2024-05-16 15:58 | Outpatient (BNVA) | payer MEDICAID, SELFPAY | PROVIDERS: PCP Family Medicine; Visit Provider Family Medicine | DX: Z79.899 Other long term (current) drug therapy (principal) | CPT/HCPCS: 80053; 80307 ==

== ENCOUNTER → 2024-06-17 09:24 | Outpatient (BNVA) | payer MEDICAID, SELFPAY | PROVIDERS: PCP Family Medicine; Visit Provider Specialist | DX: M17.12 Unilateral primary osteoarthritis, left knee (principal); Z71.89 Other specified counseling | CPT/HCPCS: 20610; J1100; J2795; J3301; J9999 ==

== ENCOUNTER → 2024-06-23 15:09 | Outpatient (BNVA) | payer MEDICAID, SELFPAY | PROVIDERS: PCP Family Medicine; Visit Provider Orthopaedic Surgery | DX: Z98.1 Arthrodesis status (principal) | CPT/HCPCS: 72100; 99213 ==

== ENCOUNTER → 2024-09-23 09:14 | Outpatient (BNVA) | payer MEDICAID, SELFPAY | PROVIDERS: PCP Family Medicine; Visit Provider Specialist | DX: M17.12 Unilateral primary osteoarthritis, left knee (principal) | CPT/HCPCS: 20610; J1100; J2795; J3301; J9999 ==

== ENCOUNTER → 2024-09-28 08:47 | Outpatient (BNVA) | payer MEDICAID, SELFPAY | PROVIDERS: PCP Family Medicine; Visit Provider Specialist | DX: M17.11 Unilateral primary osteoarthritis, right knee (principal) | CPT/HCPCS: 73560; 73565; 99214 ==

== ENCOUNTER → 2025-02-03 08:20 | Outpatient (BNVA) | payer MEDICAID, SELFPAY | PROVIDERS: PCP Family Medicine; Visit Provider Specialist | DX: M17.12 Unilateral primary osteoarthritis, left knee (principal) | CPT/HCPCS: 20610; J1100; J2795; J3301; J9999 ==